=== PATIENT | female | born 1960 | race American Indian/Alaskan Native ===

== ENCOUNTER 2017-03-11 02:04 | Inpatient (IN) | payer MEDICARE ==
[2017-03-11 02:44] LABS: BASO # 0.1 K/uL (0.0-0.2); BASO % 1.4 % (0.0-2.0); EOS # 0.1 K/uL (0.0-0.7); EOS % 0.7 % (0.0-4.0); LYMPH # 2.5 K/uL (1.0-4.3); LYMPH % 32.3 % (20.0-40.0); MEAN CELL VOLUME 76.3 fl (81.0-99.0); MEAN CORPUSCULAR HEMOGLOBIN 24.5 pg (27.0-31.0); MEAN CORPUSCULAR HGB CONC 32.2 g/dL (33.0-37.0); MEAN PLATELET VOLUME 8.7 fl (7.2-11.7); MONO # 0.6 K/uL (0.0-0.8); MONO % 7.5 % (0.0-10.0); NEUT # 4.5 K/uL (1.8-7.0); NEUT % 58.1 % (50.0-75.0); NRBC % 0.3 % (0.0-0.0); RBC 4.9 Mil/uL (3.80-5.20); RED CELL DISTRIBUTION WIDTH 14.9 % (11.5-14.5); WHITE BLOOD COUNT 7.7 K/uL (4.8-10.8)
[2017-03-11 02:55] LABS: BARBITURATES, UR NEGATIVE (NEGATIVE); BENZODIAZEPINES, UR NEGATIVE (NEGATIVE); OPIATES, UR NEGATIVE (NEGATIVE); PHENCYCLIDINE, UR NEGATIVE (NEGATIVE)
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
[2017-03-11] MEDS ORDERED: Dextrose 5%/0.45% NS 1,000 ML IV SCH (03:00)
[2017-03-11 03:05] LABS: ALB/GLOB RATIO 1.3 (1.0-2.1); ALBUMIN 4.4 g/dL (3.5-5.0); ALT/SGPT 28 U/L (9-52); AST/SGOT 26 U/L (14-36); BLOOD UREA NITROGEN 13 mg/dl (7-17); CALCIUM 10.2 mg/dL (8.4-10.2); GFR AFRICAN-AMERICAN > 60; GFR NON-AFRICAN AMERICAN > 60
[2017-03-11 03:26] LABS: INR 1.1 (0.9-1.2); PARTIAL THROMBOPLASTIN TIME 30.2 Seconds (25.6-37.1); PROTHROMBIN TIME 12.7 Seconds (9.8-13.1)
--- NOTE | 2017-03-11 03:29 | CT ---
EXAM: CT Head Without Intravenous Contrast CLINICAL HISTORY: 56 years old, female; Signs and symptoms; Altered mental status/memory loss; Prior surgery; Surgery date: 6+ months; Surgery type: See chart; Additional info: AMS TECHNIQUE: Axial computed tomography images of the head/brain without intravenous contrast. This CT exam was performed using one or more of the following dose reduction techniques: automated exposure control, adjustment of the mA and/or kV according to patient size, and/or use of iterative reconstruction technique. Coronal and sagittal reformatted images were created and reviewed. COMPARISON: CT - HEAD W/O CONTRAST 05/17/2016 3:35:58 AM FINDINGS: Brain: No intracranial hemorrhage. No mass. Calcifications within LEFT frontal region along previous shunt tract. No definite edema. Ventricles: RIGHT ventricular shunt, stable in position. No hydrocephalus. Bones/joints: No acute fracture. Postsurgical changes of calvarium. Soft tissues: Unremarkable. Vasculature: Aneurysm clips. Sinuses: No acute sinusitis. Mastoid air cells: No mastoid effusion. Orbits: Unremarkable as visualized. IMPRESSION: 1. No definite acute intracranial abnormality. 2. Incidental/non-acute findings are described above.
[2017-03-11] MEDS ORDERED: Multivitamin (MVI) 10 ML, Folic Acid 1 MG, Thiamine 100 MG in Dextrose 5%/0.45% NS 1,00... IV ONE (03:32)
[2017-03-11] MEDS ORDERED: Labetalol 5 mg/ml Inj 20ML IVP STA (03:33)
[2017-03-11 03:55] LABS: SQUAMOUS EPITHIAL 3 /hpf (0-5); URINE BACTERIA RARE (<OCC); URINE BILIRUBIN NEGATIVE (NEGATIVE); URINE BLOOD NEGATIVE (NEGATIVE); URINE CLARITY SLIGHTY-CLOUDY (Clear); URINE COLOR YELLOW (YELLOW); URINE GLUCOSE (UA) NEG (Normal); URINE LEUKOCYTE ESTERASE SMALL Leu/uL (Negative); URINE NITRATE NEGATIVE (NEGATIVE); URINE PROTEIN 30 mg/dL (NEGATIVE); URINE UROBILINOGEN 0.2-1.0 mg/dL (0.2-1.0)
[2017-03-11 03:55] LABS: VENOUS BLOOD GAS BASE EXCESS -1.6 mmol/L (0.0-2.0); VENOUS BLOOD GAS PCO2 24 mmHg (40-60); VENOUS BLOOD GAS PO2 37 mm/Hg (30-55); VENOUS BLOOD PH 7.52 (7.32-7.43)
[2017-03-11 04:02] LABS: ABG ALLEN TEST YES; ARTERIAL BLOOD GAS O2 SAT 94.1 % (95-98); ARTERIAL BLOOD GAS PCO2 19 mm/Hg (35-45); ARTERIAL BLOOD GAS PH 7.57 (7.35-7.45); ARTERIAL BLOOD GAS PO2 52 mm/Hg (80-100)
[2017-03-11] MEDS ORDERED: Labetalol 5 mg/ml Inj 20ML IVP PRN ×2 (04:44→04:48)
[2017-03-11] MEDS ORDERED: Potassium Chloride 20 mEq ER Tab PO ONE ×2 (04:49→12:10)
[2017-03-11 06:03] VITALS: BMI 25.0
[2017-03-11 07:25] LABS: BASO % 0.3 % (0.0-2.0); EOS % 0.3 % (0.0-4.0); HEMOGLOBIN 11.5 g/dL (12.0-16.0); LYMPH % 23.8 % (20.0-40.0); MEAN CELL VOLUME 75.7 fl (81.0-99.0); MEAN CORPUSCULAR HEMOGLOBIN 24.6 pg (27.0-31.0); MEAN CORPUSCULAR HGB CONC 32.5 g/dL (33.0-37.0); MEAN PLATELET VOLUME 8.9 fl (7.2-11.7); MONO # 0.5 K/uL (0.0-0.8); MONO % 5.8 % (0.0-10.0); NEUT # 5.9 K/uL (1.8-7.0); NEUT % 69.8 % (50.0-75.0); RBC 4.69 Mil/uL (3.80-5.20); WHITE BLOOD COUNT 8.5 K/uL (4.8-10.8)
[2017-03-11 07:45] LABS: BLOOD UREA NITROGEN 10 mg/dl (7-17); GFR AFRICAN-AMERICAN > 60; GFR NON-AFRICAN AMERICAN > 60
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
--- NOTE | 2017-03-11 08:02 | RAD ---
HISTORY: Chest pain. Portable study 03:46. COMPARISON: 05/26/2016. FINDINGS: LUNGS: Haziness at the right lung base either atelectasis or infiltrate. PLEURA: No significant pleural effusion identified, no pneumothorax apparent. CARDIOVASCULAR: No radiographic findings to suggest acute or significant cardiovascular disease. OSSEOUS STRUCTURES: No significant abnormalities. VISUALIZED UPPER ABDOMEN: Normal. OTHER FINDINGS: Stable METROLOGY SPECIALIST shunt catheter. IMPRESSION: Right lower lobe infiltrate/atelectasis. No preliminary report provided by emergency department personnel.
[2017-03-11] MEDS: Pantoprazole 40 mg EC Tab PO SCH (08:43)
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
[2017-03-11] MEDS: Azithromycin 500 MG in Sodium Chloride 0.9% 250 ML IVPB SCH (12:06)
--- NOTE | 2017-03-11 12:24 | CARD ---
APPROVED REPORT EKG Measurement Heart [id number] <Conclusion> Normal sinus rhythm Nonspecific T wave abnormality Abnormal ECG
--- NOTE | 2017-03-11 18:38 | CP.CCUPN ---
CCU Subjective - Physician Review Subjective (Free Text): Easily awakens to verbal stimuli, and appropriately responsive, no distress. Denies any focal weakness, abdominal pain, nausea. History obtained from family friend relates that 3 large bottles of EJ Vodka found in the home today and were probably ingested by patient recently. Oral Intake has been poor over the past several days. Son who lives now with the patient unable to fully supervise her 24-7. ROS: as above, other 10+ system review reveals no pertinent negs or positives. Other PMSFH: all nursing and physician notes reviewed, no other pertinent history relevant to current problems. CCU Objective - Vital Signs / Intake & Output Vital Signs (Last 4 hours): Vital Signs Temp Pulse Resp BP Pulse Ox 03/11/17 18:00 61 19 161/98 H 99 03/11/17 16:31 98.1 F 75 12 138/79 99 Intake and Output (Last 8hrs): Intake & Output 03/11/17 03/11/17 03/11/17 06:59 14:59 22:59 Intake Total 350 750 Output Total 750 Balance -400 750 Weight 146 lb Intake: IV 750 Intake, Piggyback 350 Output: Urine 750 Urine, Voided 750 - Physical Exam Head: Positive for: Atraumatic, Normocephalic Pupils: Positive for: PERRL Extroacular Muscles: Positive for: EOMI. Negative for: Gaze Palsy Conjunctiva: Positive for: Normal. Negative for: Injected, Icteric Pharnyx: Positive for: Normal Neck: Positive for: Normal Range of Motion. Negative for: Meningeal Signs, JVD , Lymphadenopathy Respiratory/Chest: Positive for: Clear to Auscultation. Negative for: Accessory Muscle Use, Wheezes Cardiovascular: Positive for: Regular Rate and Rhythm. Negative for: Murmurs, Rub Abdomen: Negative for: Tenderness, Distention, Normal Bowel Sounds, Guarding Lower Extremity: Positive for: Normal Inspection, NORMAL PULSES. Negative for: Edema, CALF TENDERNESS, Cyanosis Neurological: Positive for: GCS=15, Speech Normal, Motor Func Grossly Intact, Normal Sensory Function, Norm Deep Tendon Reflexes Skin: Positive for: Warm. Negative for: Rashes Psychiatric: Positive for: Alert, Oriented x 3, Normal Concentration - Medications Active Medications: Active Medications Generic Name Dose Route Start Last Admin Trade Name Freq PRN Reason Stop Dose Admin Amlodipine Besylate 10 mg 03/11/17 18:13 Norvasc PO 03/11/17 18:14 ONCE ONE Azithromycin 500 mg/ Sodium 250 mls @ 250 mls/hr 03/11/17 09:00 03/11/17 12: 06 Chloride IVPB 250 mls/hr DAILY JONNIE Administration Ceftriaxone Sodium 1 gm/ 100 mls @ 100 mls/hr 03/11/17 09:00 03/11/17 12:06 Sodium Chloride IVPB 100 mls/hr DAILY JONNIE Administration Potassium Chloride/Dextrose/Sod Cl 1,000 mls @ 150 mls/hr 03/11/17 18:30 Potassium Chl 20 Meq In D5-1/2ns IV 03/12/17 18:31 [id number] JONNIE Labetalol HCl 20 mg 03/11/17 04:48 Trandate IVP Q4H PRN Elevated Blood Pressure Pantoprazole Sodium 40 mg 03/11/17 09:00 03/11/17 08:43 Protonix Ec Tab PO 40 mg DAILY JONNIE Administration - Patient Studies Lab Studies: Lab Studies 03/11/17 03/11/17 03/11/17 Range/Units 17:31 11:40 07:00 WBC (4.8-10.8) K/uL RBC (3.80-5.20) Mil/uL Hgb (12.0-16.0) g/dL Hct (34.0-47.0) % MCV (81.0-99.0) fl MCH (27.0-31.0) pg MCHC (33.0-37.0) g/dL RDW (11.5-14.5) % Plt Count (130-400) K/uL MPV (7.2-11.7) fl Neut % (Auto) (50.0-75.0) % Lymph % (Auto) (20.0-40.0) % [place] % (Auto) (0.0-10.0) % Eos % (Auto) (0.0-4.0) % Baso % (Auto) (0.0-2.0) % Neut # (1.8-7.0) K/uL Lymph # (1.0-4.3) K/uL [place] # (0.0-0.8) K/uL Eos # (0.0-0.7) K/uL Baso # (0.0-0.2) K/uL pCO2 (35-45) mm/Hg pO2 (30-55) mm/Hg HCO3 (21-28) mmol/L ABG pH (7.35-7.45) ABG Total CO2 (22-28) mmol/L ABG O2 Saturation (95-98) % ABG Base Excess (-2.0-3.0) mmol/L Jose Test ABG Potassium (3.6-5.2) mmol/L VBG pH (7.32-7.43) VBG pCO2 (40-60) mmHg VBG HCO3 mmol/L VBG Total CO2 (22-28) mmol/L VBG O2 Sat (Calc) (40-65) % VBG Base Excess (0.0-2.0) mmol/L VBG Potassium (3.6-5.2) mmol/L A-a O2 Difference mm/Hg Sodium (132-148) mmol/L Chloride (98-107) mmol/L Glucose (65-105) mg/dL Lactate (0.7-2.1) mmol/L FiO2 % Crit Value Called To Crit Value Called By Crit Value Read Back Blood Gas Notified Time Potassium (3.6-5.0) MMOL/L Carbon Dioxide (22-30) mmol/L Anion Gap (10-20) BUN (7-17) mg/dl Creatinine (0.7-1.2) mg/dL Est GFR ( Amer) Est GFR (Non-Af Amer) Random Glucose (65-105) mg/dL Serum Osmolality (272-300) mosm/kg Calcium (8.4-10.2) mg/dL Phosphorus (2.5-4.5) mg/dl Magnesium (1.6-2.3) MG/DL Troponin I 0.0130 < 0.0120 (0.00-0.120) ng/mL Lipase (23-300) U/L Thyroxine (T4) 6.90 (5.5-11.0) ug/dl TSH 3rd Generation (0.46-4.68) mIU/ML Arterial Blood Potassium (3.6-5.2) mmol/L Venous Blood Potassium (3.6-5.2) mmol/L 07/03/11/17 03/11/17 Range/Units 07:00 07:00 05:04 WBC 8.5 (4.8-10.8) K/uL RBC 4.69 (3.80-5.20) Mil/uL Hgb 11.5 L (12.0-16.0) g/dL Hct 35.5 (34.0-47.0) % MCV 75.7 L (81.0-99.0) fl MCH 24.6 L (27.0-31.0) pg MCHC 32.5 L (33.0-37.0) g/dL RDW 15.0 H (11.5-14.5) % Plt Count 241 (130-400) K/uL MPV 8.9 (7.2-11.7) fl Neut % (Auto) 69.8 (50.0-75.0) % Lymph % (Auto) 23.8 (20.0-40.0) % [place] % (Auto) 5.8 (0.0-10.0) % Eos % (Auto) 0.3 (0.0-4.0) % Baso % (Auto) 0.3 (0.0-2.0) % Neut # 5.9 (1.8-7.0) K/uL Lymph # 2.0 (1.0-4.3) K/uL [place] # 0.5 (0.0-0.8) K/uL Eos # 0.0 (0.0-0.7) K/uL Baso # 0.0 (0.0-0.2) K/uL pCO2 (35-45) mm/Hg pO2 (30-55) mm/Hg HCO3 (21-28) mmol/L ABG pH (7.35-7.45) ABG Total CO2 (22-28) mmol/L ABG O2 Saturation (95-98) % ABG Base Excess (-2.0-3.0) mmol/L Jose Test ABG Potassium (3.6-5.2) mmol/L VBG pH (7.32-7.43) VBG pCO2 (40-60) mmHg VBG HCO3 mmol/L VBG Total CO2 (22-28) mmol/L VBG O2 Sat (Calc) (40-65) % VBG Base Excess (0.0-2.0) mmol/L VBG Potassium (3.6-5.2) mmol/L A-a O2 Difference mm/Hg Sodium 149 H (132-148) mmol/L Chloride 118 H (98-107) mmol/L Glucose (65-105) mg/dL Lactate (0.7-2.1) mmol/L FiO2 % Crit Value Called To Crit Value Called By Crit Value Read Back Blood Gas Notified Time Potassium 2.9 L (3.6-5.0) MMOL/L Carbon Dioxide 14 L (22-30) mmol/L Anion Gap 20 (10-20) BUN 10 (7-17) mg/dl Creatinine 0.7 (0.7-1.2) mg/dL Est GFR ( Amer) > 60 Est GFR (Non-Af Amer) > 60 Random Glucose 105 (65-105) mg/dL Serum Osmolality (272-300) mosm/kg Calcium 10.0 (8.4-10.2) mg/dL Phosphorus 3.1 (2.5-4.5) mg/dl Magnesium (1.6-2.3) MG/DL Troponin I < 0.0120 (0.00-0.120) ng/mL Lipase (23-300) U/L Thyroxine (T4) (5.5-11.0) ug/dl TSH 3rd Generation 4.51 (0.46-4.68) mIU/ML Arterial Blood Potassium (3.6-5.2) mmol/L Venous Blood Potassium (3.6-5.2) mmol/L 03/11/17 03/11/17 03/11/17 Range/Units 04:30 04:24 04:02 WBC (4.8-10.8) K/uL RBC (3.80-5.20) Mil/uL Hgb (12.0-16.0) g/dL Hct (34.0-47.0) % MCV (81.0-99.0) fl MCH (27.0-31.0) pg MCHC (33.0-37.0) g/dL RDW (11.5-14.5) % Plt Count (130-400) K/uL MPV (7.2-11.7) fl Neut % (Auto) (50.0-75.0) % Lymph % (Auto) (20.0-40.0) % [place] % (Auto) (0.0-10.0) % Eos % (Auto) (0.0-4.0) % Baso % (Auto) (0.0-2.0) % Neut # (1.8-7.0) K/uL Lymph # (1.0-4.3) K/uL [place] # (0.0-0.8) K/uL Eos # (0.0-0.7) K/uL Baso # (0.0-0.2) K/uL pCO2 (35-45) mm/Hg pO2 (30-55) mm/Hg HCO3 (21-28) mmol/L ABG pH (7.35-7.45) ABG Total CO2 (22-28) mmol/L ABG O2 Saturation (95-98) % ABG Base Excess (-2.0-3.0) mmol/L Jose Test ABG Potassium (3.6-5.2) mmol/L VBG pH (7.32-7.43) VBG pCO2 (40-60) mmHg VBG HCO3 mmol/L VBG Total CO2 (22-28) mmol/L VBG O2 Sat (Calc) (40-65) % VBG Base Excess (0.0-2.0) mmol/L VBG Potassium (3.6-5.2) mmol/L A-a O2 Difference mm/Hg Sodium (132-148) mmol/L Chloride (98-107) mmol/L Glucose (65-105) mg/dL Lactate (0.7-2.1) mmol/L FiO2 % Crit Value Called To Crit Value Called By Crit Value Read Back Blood Gas Notified Time Potassium (3.6-5.0) MMOL/L Carbon Dioxide (22-30) mmol/L Anion Gap (10-20) BUN (7-17) mg/dl Creatinine (0.7-1.2) mg/dL Est GFR ( Amer) Est GFR (Non-Af Amer) Random Glucose (65-105) mg/dL Serum Osmolality 304 H (272-300) mosm/kg Calcium (8.4-10.2) mg/dL Phosphorus (2.5-4.5) mg/dl Magnesium 1.5 L (1.6-2.3) MG/DL Troponin I (0.00-0.120) ng/mL Lipase 91 (23-300) U/L Thyroxine (T4) (5.5-11.0) ug/dl TSH 3rd Generation (0.46-4.68) mIU/ML Arterial Blood Potassium (3.6-5.2) mmol/L Venous Blood Potassium (3.6-5.2) mmol/L 03/11/17 03/11/17 Range/Units 03:56 03:52 WBC (4.8-10.8) K/uL RBC (3.80-5.20) Mil/uL Hgb (12.0-16.0) g/dL Hct (34.0-47.0) % MCV (81.0-99.0) fl MCH (27.0-31.0) pg MCHC (33.0-37.0) g/dL RDW (11.5-14.5) % Plt Count (130-400) K/uL MPV (7.2-11.7) fl Neut % (Auto) (50.0-75.0) % Lymph % (Auto) (20.0-40.0) % [place] % (Auto) (0.0-10.0) % Eos % (Auto) (0.0-4.0) % Baso % (Auto) (0.0-2.0) % Neut # (1.8-7.0) K/uL Lymph # (1.0-4.3) K/uL [place] # (0.0-0.8) K/uL Eos # (0.0-0.7) K/uL Baso # (0.0-0.2) K/uL pCO2 19 L* (35-45) mm/Hg pO2 52 L 37 (30-55) mm/Hg HCO3 23.0 (21-28) mmol/L ABG pH 7.57 H (7.35-7.45) ABG Total CO2 18.0 L (22-28) mmol/L ABG O2 Saturation 94.1 L (95-98) % ABG Base Excess -2.3 L (-2.0-3.0) mmol/L Jose Test Yes ABG Potassium 3.1 L (3.6-5.2) mmol/L VBG pH 7.52 H (7.32-7.43) VBG pCO2 24 L (40-60) mmHg VBG HCO3 23.2 mmol/L VBG Total CO2 20.3 L (22-28) mmol/L VBG O2 Sat (Calc) 76.0 H (40-65) % VBG Base Excess -1.6 L (0.0-2.0) mmol/L VBG Potassium 3.4 L (3.6-5.2) mmol/L A-a O2 Difference 74.0 mm/Hg Sodium 145.0 144.0 (132-148) mmol/L Chloride 113.0 H 113.0 H (98-107) mmol/L Glucose 92 87 (65-105) mg/dL Lactate 2.8 H 3.1 H (0.7-2.1) mmol/L FiO2 21.0 21.0 % Crit Value Called To Jb coker md Crit Value Called By 6075 Crit Value Read Back Y Blood Gas Notified Time 402 Potassium (3.6-5.0) MMOL/L Carbon Dioxide (22-30) mmol/L Anion Gap (10-20) BUN (7-17) mg/dl Creatinine (0.7-1.2) mg/dL Est GFR ( Amer) Est GFR (Non-Af Amer) Random Glucose (65-105) mg/dL Serum Osmolality (272-300) mosm/kg Calcium (8.4-10.2) mg/dL Phosphorus (2.5-4.5) mg/dl Magnesium (1.6-2.3) MG/DL Troponin I (0.00-0.120) ng/mL Lipase (23-300) U/L Thyroxine (T4) (5.5-11.0) ug/dl TSH 3rd Generation (0.46-4.68) mIU/ML Arterial Blood Potassium 3.1 L (3.6-5.2) mmol/L Venous Blood Potassium 3.4 L (3.6-5.2) mmol/L Laboratory Results - last 24 hr 03/11/17 03/11/17 03/11/17 03:52 03:56 04:02 WBC RBC Hgb Hct MCV MCH MCHC RDW Plt Count MPV Neut % (Auto) Lymph % (Auto) [place] % (Auto) Eos % (Auto) Baso % (Auto) Neut # Lymph # [place] # Eos # Baso # pCO2 19 L* pO2 37 52 L HCO3 23.0 ABG pH 7.57 H ABG Total CO2 18.0 L ABG O2 Saturation 94.1 L ABG Base Excess -2.3 L Jose Test Yes ABG Potassium 3.1 L VBG pH 7.52 H VBG pCO2 24 L VBG HCO3 23.2 VBG Total CO2 20.3 L VBG O2 Sat (Calc) 76.0 H VBG Base Excess -1.6 L VBG Potassium 3.4 L A-a O2 Difference 74.0 Sodium 144.0 145.0 Chloride 113.0 H 113.0 H Glucose 87 92 Lactate 3.1 H 2.8 H FiO2 21.0 21.0 Crit Value Called To Jb coker md Crit Value Called By 6075 Crit Value Read Back Y Blood Gas Notified Time 402 Potassium Carbon Dioxide Anion Gap BUN Creatinine Est GFR ( Amer) Est GFR (Non-Af Amer) Random Glucose Serum Osmolality Calcium Phosphorus Magnesium 1.5 L Troponin I Lipase Thyroxine (T4) TSH 3rd Generation Arterial Blood Potassium 3.1 L Venous Blood Potassium 3.4 L 03/11/17 03/11/17 03/11/17 04:24 04:30 05:04 WBC RBC Hgb Hct MCV MCH MCHC RDW Plt Count MPV Neut % (Auto) Lymph % (Auto) [place] % (Auto) Eos % (Auto) Baso % (Auto) Neut # Lymph # [place] # Eos # Baso # pCO2 pO2 HCO3 ABG pH ABG Total CO2 ABG O2 Saturation ABG Base Excess Jose Test ABG Potassium VBG pH VBG pCO2 VBG HCO3 VBG Total CO2 VBG O2 Sat (Calc) VBG Base Excess VBG Potassium A-a O2 Difference Sodium Chloride Glucose Lactate FiO2 Crit Value Called To Crit Value Called By Crit Value Read Back Blood Gas Notified Time Potassium Carbon Dioxide Anion Gap BUN Creatinine Est GFR ( Amer) Est GFR (Non-Af Amer) Random Glucose Serum Osmolality 304 H Calcium Phosphorus Magnesium Troponin I < 0.0120 Lipase 91 Thyroxine (T4) TSH 3rd Generation Arterial Blood Potassium Venous Blood Potassium 0703/11/17 03/11/17 07:00 07:00 07:00 WBC 8.5 RBC 4.69 Hgb 11.5 L Hct 35.5 MCV 75.7 L MCH 24.6 L MCHC 32.5 L RDW 15.0 H Plt Count 241 MPV 8.9 Neut % (Auto) 69.8 Lymph % (Auto) 23.8 [place] % (Auto) 5.8 Eos % (Auto) 0.3 Baso % (Auto) 0.3 Neut # 5.9 Lymph # 2.0 [place] # 0.5 Eos # 0.0 Baso # 0.0 pCO2 pO2 HCO3 ABG pH ABG Total CO2 ABG O2 Saturation ABG Base Excess Jose Test ABG Potassium VBG pH VBG pCO2 VBG HCO3 VBG Total CO2 VBG O2 Sat (Calc) VBG Base Excess VBG Potassium A-a O2 Difference Sodium 149 H Chloride 118 H Glucose Lactate FiO2 Crit Value Called To Crit Value Called By Crit Value Read Back Blood Gas Notified Time Potassium 2.9 L Carbon Dioxide 14 L Anion Gap 20 BUN 10 Creatinine 0.7 Est GFR ( Amer) > 60 Est GFR (Non-Af Amer) > 60 Random Glucose 105 Serum Osmolality Calcium 10.0 Phosphorus 3.1 Magnesium Troponin I Lipase Thyroxine (T4) 6.90 TSH 3rd Generation 4.51 Arterial Blood Potassium Venous Blood Potassium 03/11/17 03/11/17 11:40 17:31 WBC RBC Hgb Hct MCV MCH MCHC RDW Plt Count MPV Neut % (Auto) Lymph % (Auto) [place] % (Auto) Eos % (Auto) Baso % (Auto) Neut # Lymph # [place] # Eos # Baso # pCO2 pO2 HCO3 ABG pH ABG Total CO2 ABG O2 Saturation ABG Base Excess Jose Test ABG Potassium VBG pH VBG pCO2 VBG HCO3 VBG Total CO2 VBG O2 Sat (Calc) VBG Base Excess VBG Potassium A-a O2 Difference Sodium Chloride Glucose Lactate FiO2 Crit Value Called To Crit Value Called By Crit Value Read Back Blood Gas Notified Time Potassium Carbon Dioxide Anion Gap BUN Creatinine Est GFR ( Amer) Est GFR (Non-Af Amer) Random Glucose Serum Osmolality Calcium Phosphorus Magnesium Troponin I < 0.0120 0.0130 Lipase Thyroxine (T4) TSH 3rd Generation Arterial Blood Potassium Venous Blood Potassium Fingerstick Blood Sugar Results: 95 Critical Care Progress Note - Prophylaxis GI Prophylaxis GI: PPI - Prophylaxis DVT Prophylaxis DVT: SCDs - Nutrition Nutrition: Nutrition Category Date Time Status Heart Healthy Diet [DIET] Diets 03/11/17 Lunch Active Assessment/Plan - Assessment and Plan (Free Text) Assessment: MAJOR PROBLEMS / PLAN: 1. Alcoholic ketoacidosis with concomitant metabolic alkalosis from vomiting. a. There is no osmolar gap evident to otherwise explain the current level of acidosis, leading to suspicion of other toxic ingestion such as ethylene glycol , methanol, and isopropyl alcohol as in a recent past admission. b. Would continue IVFs with D5W and half saline. c. Check mag/Phos levels in AM. K repleted this AM, but may need more. d. Thiamine and folic acid supplements 2. HTN a. Resume Amlodipine. b. Watch BP trends, treat if sustained elevations above 110 and lower 20% for now. 3. RLL/ RML Pneumonia; r/o Aspiration event a. Empiric abx coverage noted. Would switch to Zosyn for additional anaerobic coverage, and keep Azithro.
[2017-03-11] MEDS: Potassium Ch 20mEq in D5-1/2NS 1,000 ML IV SCH (19:05)
[2017-03-12] MEDS: Potassium Ch 20mEq in D5-1/2NS 1,000 ML IV SCH ×2 (01:03→08:00)
[2017-03-12 05:36] LABS: HEMOGLOBIN 11.1 g/dL (12.0-16.0); MEAN CELL VOLUME 77.9 fl (81.0-99.0); MEAN CORPUSCULAR HEMOGLOBIN 24.3 pg (27.0-31.0); MEAN CORPUSCULAR HGB CONC 31.2 g/dL (33.0-37.0); RBC 4.55 Mil/uL (3.80-5.20); RED CELL DISTRIBUTION WIDTH 15.2 % (11.5-14.5); WHITE BLOOD COUNT 8.2 K/uL (4.8-10.8)
[2017-03-12 05:48] LABS: BLOOD UREA NITROGEN 7 mg/dl (7-17); CALCIUM 8.9 mg/dL (8.4-10.2); GFR AFRICAN-AMERICAN > 60; GFR NON-AFRICAN AMERICAN > 60
--- NOTE | 2017-03-12 07:17 | CP.CCUPN ---
CCU Objective - Vital Signs / Intake & Output Vital Signs (Last 4 hours): Vital Signs Temp Pulse Resp BP Pulse Ox 03/12/17 06:00 72 18 134/72 100 03/12/17 04:00 98.1 F 71 18 134/88 98 Intake and Output (Last 8hrs): Intake & Output 03/11/17 03/12/17 03/12/17 22:59 06:59 14:59 Intake Total 1200 1350 Output Total 300 300 Balance 900 1050 Intake: IV 1200 1350 Oral 0 0 Output: Urine 300 300 Urine, Voided 300 300 Other: # Voids Urine, Voided 1 1 # Bowel Movements 1 - Physical Exam Head: Positive for: Atraumatic, Normocephalic Pupils: Positive for: PERRL Extroacular Muscles: Positive for: EOMI. Negative for: Gaze Palsy Conjunctiva: Positive for: Normal. Negative for: Injected, Icteric Pharnyx: Positive for: Normal Neck: Positive for: Normal Range of Motion. Negative for: Meningeal Signs, JVD , Lymphadenopathy Respiratory/Chest: Positive for: Clear to Auscultation. Negative for: Accessory Muscle Use, Wheezes Cardiovascular: Positive for: Regular Rate and Rhythm. Negative for: Murmurs, Rub Abdomen: Negative for: Tenderness, Distention, Normal Bowel Sounds, Guarding Lower Extremity: Positive for: Normal Inspection, NORMAL PULSES. Negative for: Edema, CALF TENDERNESS, Cyanosis Neurological: Positive for: GCS=15, Speech Normal, Motor Func Grossly Intact, Normal Sensory Function, Norm Deep Tendon Reflexes Skin: Positive for: Warm. Negative for: Rashes Psychiatric: Positive for: Alert, Oriented x 3, Normal Concentration - Medications Active Medications: Active Medications Generic Name Dose Route Start Last Admin Trade Name Freq PRN Reason Stop Dose Admin Amlodipine Besylate 10 mg 03/12/17 09:00 Norvasc PO DAILY JONNIE Folic Acid 1 mg 03/12/17 09:00 Folic Acid PO DAILY JONNIE Azithromycin 500 mg/ Sodium 250 mls @ 250 mls/hr 03/11/17 09:00 03/11/17 12: 06 Chloride IVPB 250 mls/hr DAILY JONNIE Administration Ceftriaxone Sodium 1 gm/ 100 mls @ 100 mls/hr 03/11/17 09:00 03/11/17 12:06 Sodium Chloride IVPB 100 mls/hr DAILY JONNIE Administration Potassium Chloride/Dextrose/Sod Cl 1,000 mls @ 150 mls/hr 03/11/17 18:30 01:03 Potassium Chl 20 Meq In D5-1/2ns IV 03/12/17 18:31 150 mls/hr .[id number] JONNIE Administration Labetalol HCl 20 mg 03/11/17 04:48 Trandate IVP Q4H PRN Elevated Blood Pressure Pantoprazole Sodium 40 mg 03/11/17 09:00 03/11/17 08:43 Protonix Ec Tab PO 40 mg DAILY JONNIE Administration Thiamine HCl 100 mg 03/12/17 09:00 Vitamin B1 Tab PO DAILY JONNIE - Patient Studies Lab Studies: Lab Studies 03/12/17 03/12/17 03/11/17 Range/Units 04:20 04:20 17:31 WBC 8.2 (4.8-10.8) K/uL RBC 4.55 (3.80-5.20) Mil/uL Hgb 11.1 L (12.0-16.0) g/dL Hct 35.5 (34.0-47.0) % MCV 77.9 L D (81.0-99.0) fl MCH 24.3 L (27.0-31.0) pg MCHC 31.2 L (33.0-37.0) g/dL RDW 15.2 H (11.5-14.5) % Plt Count 199 (130-400) K/uL MPV (7.2-11.7) fl Neut % (Auto) (50.0-75.0) % Lymph % (Auto) (20.0-40.0) % Pope % (Auto) (0.0-10.0) % Eos % (Auto) (0.0-4.0) % Baso % (Auto) (0.0-2.0) % Neut # (1.8-7.0) K/uL Lymph # (1.0-4.3) K/uL Pope # (0.0-0.8) K/uL Eos # (0.0-0.7) K/uL Baso # (0.0-0.2) K/uL Sodium 145 (132-148) mmol/l Potassium 3.5 L (3.6-5.0) MMOL/L Chloride 119 H (98-107) mmol/L Carbon Dioxide 16 L (22-30) mmol/L Anion Gap 14 (10-20) BUN 7 (7-17) mg/dl Creatinine 0.7 (0.7-1.2) mg/dL Est GFR ( Amer) > 60 Est GFR (Non-Af Amer) > 60 Random Glucose 118 H (65-105) mg/dL Calcium 8.9 (8.4-10.2) mg/dL Phosphorus (2.5-4.5) mg/dl Troponin I 0.0130 (0.00-0.120) ng/mL Thyroxine (T4) (5.5-11.0) ug/dl TSH 3rd Generation (0.46-4.68) mIU/ML 03/11/17 03/11/17 03/11/17 Range/Units 11:40 07:00 07:00 WBC (4.8-10.8) K/uL RBC (3.80-5.20) Mil/uL Hgb (12.0-16.0) g/dL Hct (34.0-47.0) % MCV (81.0-99.0) fl MCH (27.0-31.0) pg MCHC (33.0-37.0) g/dL RDW (11.5-14.5) % Plt Count (130-400) K/uL MPV (7.2-11.7) fl Neut % (Auto) (50.0-75.0) % Lymph % (Auto) (20.0-40.0) % Pope % (Auto) (0.0-10.0) % Eos % (Auto) (0.0-4.0) % Baso % (Auto) (0.0-2.0) % Neut # (1.8-7.0) K/uL Lymph # (1.0-4.3) K/uL Pope # (0.0-0.8) K/uL Eos # (0.0-0.7) K/uL Baso # (0.0-0.2) K/uL Sodium 149 H (132-148) mmol/l Potassium 2.9 L (3.6-5.0) MMOL/L Chloride 118 H (98-107) mmol/L Carbon Dioxide 14 L (22-30) mmol/L Anion Gap 20 (10-20) BUN 10 (7-17) mg/dl Creatinine 0.7 (0.7-1.2) mg/dL Est GFR ( Amer) > 60 Est GFR (Non-Af Amer) > 60 Random Glucose 105 (65-105) mg/dL Calcium 10.0 (8.4-10.2) mg/dL Phosphorus 3.1 (2.5-4.5) mg/dl Troponin I < 0.0120 (0.00-0.120) ng/mL Thyroxine (T4) 6.90 (5.5-11.0) ug/dl TSH 3rd Generation 4.51 (0.46-4.68) mIU/ML 03/11/17 Range/Units 07:00 WBC 8.5 (4.8-10.8) K/uL RBC 4.69 (3.80-5.20) Mil/uL Hgb 11.5 L (12.0-16.0) g/dL Hct 35.5 (34.0-47.0) % MCV 75.7 L (81.0-99.0) fl MCH 24.6 L (27.0-31.0) pg MCHC 32.5 L (33.0-37.0) g/dL RDW 15.0 H (11.5-14.5) % Plt Count 241 (130-400) K/uL MPV 8.9 (7.2-11.7) fl Neut % (Auto) 69.8 (50.0-75.0) % Lymph % (Auto) 23.8 (20.0-40.0) % Pope % (Auto) 5.8 (0.0-10.0) % Eos % (Auto) 0.3 (0.0-4.0) % Baso % (Auto) 0.3 (0.0-2.0) % Neut # 5.9 (1.8-7.0) K/uL Lymph # 2.0 (1.0-4.3) K/uL Pope # 0.5 (0.0-0.8) K/uL Eos # 0.0 (0.0-0.7) K/uL Baso # 0.0 (0.0-0.2) K/uL Sodium (132-148) mmol/l Potassium (3.6-5.0) MMOL/L Chloride (98-107) mmol/L Carbon Dioxide (22-30) mmol/L Anion Gap (10-20) BUN (7-17) mg/dl Creatinine (0.7-1.2) mg/dL Est GFR ( Amer) Est GFR (Non-Af Amer) Random Glucose (65-105) mg/dL Calcium (8.4-10.2) mg/dL Phosphorus (2.5-4.5) mg/dl Troponin I (0.00-0.120) ng/mL Thyroxine (T4) (5.5-11.0) ug/dl TSH 3rd Generation (0.46-4.68) mIU/ML Laboratory Results - last 24 hr 03/11/17 03/11/17 03/11/17 07:00 07:00 07:00 WBC 8.5 RBC 4.69 Hgb 11.5 L Hct 35.5 MCV 75.7 L MCH 24.6 L MCHC 32.5 L RDW 15.0 H Plt Count 241 MPV 8.9 Neut % (Auto) 69.8 Lymph % (Auto) 23.8 Pope % (Auto) 5.8 Eos % (Auto) 0.3 Baso % (Auto) 0.3 Neut # 5.9 Lymph # 2.0 Pope # 0.5 Eos # 0.0 Baso # 0.0 Sodium 149 H Potassium 2.9 L Chloride 118 H Carbon Dioxide 14 L Anion Gap 20 BUN 10 Creatinine 0.7 Est GFR ( Amer) > 60 Est GFR (Non-Af Amer) > 60 Random Glucose 105 Calcium 10.0 Phosphorus 3.1 Troponin I Thyroxine (T4) 6.90 TSH 3rd Generation 4.51 03/11/17 03/11/17 03/12/17 11:40 17:31 04:20 WBC 8.2 RBC 4.55 Hgb 11.1 L Hct 35.5 MCV 77.9 L D MCH 24.3 L MCHC 31.2 L RDW 15.2 H Plt Count 199 MPV Neut % (Auto) Lymph % (Auto) Pope % (Auto) Eos % (Auto) Baso % (Auto) Neut # Lymph # Pope # Eos # Baso # Sodium Potassium Chloride Carbon Dioxide Anion Gap BUN Creatinine Est GFR ( Amer) Est GFR (Non-Af Amer) Random Glucose Calcium Phosphorus Troponin I < 0.0120 0.0130 Thyroxine (T4) TSH 3rd Generation 03/12/17 04:20 WBC RBC Hgb Hct MCV MCH MCHC RDW Plt Count MPV Neut % (Auto) Lymph % (Auto) Pope % (Auto) Eos % (Auto) Baso % (Auto) Neut # Lymph # Pope # Eos # Baso # Sodium 145 Potassium 3.5 L Chloride 119 H Carbon Dioxide 16 L Anion Gap 14 BUN 7 Creatinine 0.7 Est GFR ( Amer) > 60 Est GFR (Non-Af Amer) > 60 Random Glucose 118 H Calcium 8.9 Phosphorus Troponin I Thyroxine (T4) TSH 3rd Generation Fingerstick Blood Sugar Results: 95 Critical Care Progress Note - Nutrition Nutrition: Nutrition Category Date Time Status Heart Healthy Diet [DIET] Diets 03/11/17 Lunch Active
[2017-03-12 08:46] VITALS: TEMP 98
[2017-03-12] MEDS: Pantoprazole 40 mg EC Tab PO SCH (08:57)
[2017-03-12] MEDS: Azithromycin 500 MG in Sodium Chloride 0.9% 250 ML IVPB SCH (08:58)
[2017-03-12 11:51] VITALS: BP 128/88; PULSE 92; RESP 19; O2SAT 100
[2017-03-14 14:28] LABS: BETA-HYDROXYBUTYRIC ACID 12 mcg/mL
--- NOTE | 2017-03-16 08:16 | PQF PNEUMO ---
Dr. Monsivais History and Physical documented RLL infiltrate. Progress note dated documented pneumonia. After study please clarify principal diagnosis/ diagnoses for this case. This form is a permanent part of the medical record Clarification of your documentation is requested to better reflect the severity of illness and intensity of treatment of your patient. Indicators present [x] Documented diagnosis of pneumonia [x] X-ray findings: [] Positive Sputum cultures [] Cough w/ fever [] Abnormal lungs sounds [] Poor gag reflex [] Speech consults/swallow evaluation [] Vent dependence [] Other: [] Location in the medical record that reflects the above clinical findings: [] Treatment Provided: [] PHYSICIAN'S RESPONSE Based on your medical judgment of the clinical indicators outlined above, are you treating this patient for a known or suspected: [] Aspiration pneumonia [] Community acquired pneumonia [] Ventilator associated pneumonia [] Viral pneumonia [] Bacterial pneumonia Please specify organism: [] [] Other, please indicate [] If Unable to Determine, please check the box, sign and date. Present On Admission (POA) Indicator: [] Present at the time of admission [] Not present at the time of admission [] Clinically Undetermined In responding to this query, please exercise your independent professional judgment. The fact that a question is asked does not imply that any particular answer is desired or expected. Thank you for your clarification on this documentation. If you have any questions please call:[ ] * Thank you, [ ]Judy Forbes twister in [place]
== END 2017-03-12 11:47 | disposition left against medical advice (07) | DRG 194 ==
LOC: H.ER 02:04 → H.ERHOLD 03:33 → H.ICU/CCU 05:30
PROVIDERS: ADMIT Internal Medicine; ATTEND Internal Medicine
DX: J18.9 Pneumonia, unspecified organism (principal); E87.3 Alkalosis; E87.2 Acidosis; R41.82 Altered mental status, unspecified; I10 Essential (primary) hypertension; Z98.2 Presence of cerebrospinal fluid drainage device; Z85.3 Personal history of malignant neoplasm of breast; F17.200 Nicotine dependence, unspecified, uncomplicated; Z88.5 Allergy status to narcotic agent; F41.9 Anxiety disorder, unspecified; F32.9 Major depressive disorder, single episode, unspecified; E78.00 Pure hypercholesterolemia, unspecified; F10.10 Alcohol abuse, uncomplicated; Y90.0 Blood alcohol level of less than 20 mg/100 ml; E87.6 Hypokalemia

== ENCOUNTER 2017-12-12 10:24 | Inpatient (IN) | payer MEDICARE, OTHER ==
[2017-12-12 10:24] VITALS: BMI 25.0
[2017-12-12] MEDS ORDERED: Sodium Chloride 0.9% 1,000 ML IV STA (10:43)
[2017-12-12 10:57] LABS: BASO # 0.1 K/uL (0.0-0.2); BASO % 0.5 % (0.0-2.0); EOS # 0.1 K/uL (0.0-0.7); EOS % 0.5 % (0.0-4.0); HEMOGLOBIN 13.5 g/dL (12.0-16.0); LYMPH # 5.2 K/uL (1.0-4.3); LYMPH % 30.8 % (20.0-40.0); MEAN CELL VOLUME 79.9 fl (81.0-99.0); MEAN CORPUSCULAR HEMOGLOBIN 25.7 pg (27.0-31.0); MEAN CORPUSCULAR HGB CONC 32.1 g/dL (33.0-37.0); MEAN PLATELET VOLUME 9.2 fl (7.2-11.7); MONO # 0.9 K/uL (0.0-0.8); MONO % 5.4 % (0.0-10.0); NEUT # 10.5 K/uL (1.8-7.0); NEUT % 62.8 % (50.0-75.0); NRBC % 0.1 % (0.0-0.0); RBC 5.27 Mil/uL (3.80-5.20); RED CELL DISTRIBUTION WIDTH 15.9 % (11.5-14.5)
[2017-12-12 10:58] LABS: WHITE BLOOD COUNT 16.7 K/uL (4.8-10.8)
[2017-12-12 11:07] LABS: ALB/GLOB RATIO 1.2 (1.0-2.1); ALBUMIN 4.3 g/dL (3.5-5.0); ALT/SGPT 32 U/L (9-52); AST/SGOT 51 U/L (14-36); BLOOD UREA NITROGEN 10 mg/dl (7-17); CALCIUM 9.6 mg/dL (8.4-10.2); GFR AFRICAN-AMERICAN > 60; GFR NON-AFRICAN AMERICAN > 60
[2017-12-12 11:20] LABS: ABG ALLEN TEST YES; ARTERIAL BLOOD GAS O2 SAT 98.9 % (95-98); ARTERIAL BLOOD GAS PCO2 46 mm/Hg (35-45); ARTERIAL BLOOD GAS PH 7.34 (7.35-7.45); ARTERIAL BLOOD GAS PO2 155 mm/Hg (80-100); ARTERIAL BLOOD GAS TCO2 26.2 mmol/L (22-28)
[2017-12-12] MEDS ORDERED: Labetalol 5mg/ml (4ml) IVP STA (11:41)
[2017-12-12 11:56] LABS: PHENCYCLIDINE, UR NEGATIVE (NEGATIVE)
[2017-12-12 11:59] LABS: BARBITURATES, UR NEGATIVE (NEGATIVE); BENZODIAZEPINES, UR NEGATIVE (NEGATIVE); OPIATES, UR NEGATIVE (NEGATIVE)
--- NOTE | 2017-12-12 12:41 | CT ---
PROCEDURE: CT HEAD WITHOUT CONTRAST. HISTORY: new seizure, h/o chronic alcohol use COMPARISON: CT head dated 09/28/2017. TECHNIQUE: Axial computed tomography images were obtained through the head/brain without intravenous contrast. Radiation dose: Total exam DLP = 838.4 mGy-cm. This CT exam was performed using one or more of the following dose reduction techniques: Automated exposure control, adjustment of the mA and/or kV according to patient size, and/or use of iterative reconstruction technique. FINDINGS: HEMORRHAGE: No intracranial hemorrhage. 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 Encephalomalacia linear/logical area of encephalomalacia extending through a left frontal lobe related to previously removed ventriculostomy catheter. No atrophy or chronic microvascular ischemic changes. Left anterior internal capsule lacunar infarction redemonstrated. VENTRICLES: Partially imaged are the frontal ventriculoperitoneal shunt catheter redemonstrated with tip near the foramen of Monro. No hydrocephalus. CALVARIUM: Left frontal ton hole. PARANASAL SINUSES: Minimal mastoid sinus secretions and left ethmoid air cell opacification. No significant inflammatory changes. MASTOID AIR CELLS: Unremarkable as visualized. No inflammatory changes. OTHER FINDINGS: Right ventriculoperitoneal shunt reservoir in the right frontoparietal soft tissues. IMPRESSION: No acute intracranial pathology. Stable appearance of right parasellar coil mass and partially imaged right ventriculoperitoneal shunt catheter.
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
[2017-12-12] MEDS ORDERED: Labetalol 5 mg/ml Inj 20ML IVP STA ×2 (13:40→18:12)
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
[2017-12-12] MEDS ORDERED: Iodixanol 320 MG/ML 100 ML BOTTLE IV ONE (13:46)
[2017-12-12] MEDS ORDERED: Valproate 1,000 MG in Sodium Chloride 0.9% 100 ML IVPB ONE (14:00)
[2017-12-12] MEDS ORDERED: Labetalol 5 mg/ml Inj 20ML IVP ONE (14:00)
[2017-12-12] MEDS ORDERED: Potassium Chloride 20 mEq 50 ML IVPB ONE (15:44)
[2017-12-12] MEDS ORDERED: Potassium Chloride 20 mEq 100 ML ONE (15:51)
--- NOTE | 2017-12-12 16:15 | ED PDOC ---
- Laboratory Results Result Diagrams: 12/12/17 10:30 12/12/17 10:30 - ECG O2 Sat by Pulse Oximetry: 100 - Progress ED Course And Treament: 330p Pt hospitalized for seizure and possible new weakness. Initial CT head w/o contrast negative and was evaluated by Neurology who advised CTA. Also with possible alcohol withdrawal. Asked to come to bedside for persistent agitation despite dose of Ativan. On exam pt agitated, trying to get out of bed pull out lines, speaking nonsensically and unable to be redirected. BP elevated. Daughter reports that pt is a heavy daily drinker and it is unknown when last drink was. Findings c/w DTs vs expanding aneurysm/increased ICP. Additional doses of Ativan given until calm. DW Dr Jones Pattern Room Attendant. Will come to see patient following CTA. 5p Multiple doses of ativan required to relieve agitations. Ordered Ativan infusion. EXAM: CT Angiography Head With Intravenous Contrast EXAM DATE/TIME: Examination ordered 12/12/2017 1:38 PM. Image number total count reviewed 1420 CLINICAL HISTORY: The patient is 57 years old and is female; Screening exam; Lt side weakness; Additional info: Left sided weakness/seizures Facility exam id and description: [id number] cta head /neck code stroke TECHNIQUE: Axial computed tomographic angiography images of the head with intravenous contrast using CT angiography protocol. All CT scans at this facility use one or more dose reduction techniques, viz.: automated exposure control; ma/kV adjustment per patient size (including targeted exams where dose is matched to indication; i.e. head); or iterative reconstruction technique. MIP reconstructed images were created and reviewed. CONTRAST: 60 mL of vsipaque administered intravenously. COMPARISON: CT - HEAD W/O CONTRAST 2016-05-17 03:35 FINDINGS: RIGHT INTERNAL CAROTID ARTERY: Atherosclerosis cavernous internal carotid arteries. Intracranial segment is patent with no significant stenosis. No aneurysm. RIGHT ANTERIOR CEREBRAL ARTERY: Unremarkable. No occlusion or significant stenosis. No aneurysm. RIGHT MIDDLE CEREBRAL ARTERY: Unremarkable. No occlusion or significant stenosis. No aneurysm. RIGHT POSTERIOR CEREBRAL ARTERY: Unremarkable. No occlusion or significant stenosis. No aneurysm. RIGHT VERTEBRAL ARTERY: Unremarkable as visualized. LEFT INTERNAL CAROTID ARTERY: See above. LEFT ANTERIOR CEREBRAL ARTERY: Unremarkable. No occlusion or significant stenosis. No aneurysm. LEFT MIDDLE CEREBRAL ARTERY: Unremarkable. No occlusion or significant stenosis. No aneurysm. LEFT POSTERIOR CEREBRAL ARTERY: Unremarkable. No occlusion or significant stenosis. No aneurysm. LEFT VERTEBRAL ARTERY: Unremarkable as visualized. BASILAR ARTERY: Unremarkable. No occlusion or significant stenosis. No aneurysm. SINUSES: Mild ethmoid and maxillary sinus mucosal thickening. SELLA: Aneurysm coils right suprasellar region. TUBES, LINES AND DEVICES: Right parietal ventricular catheter with tip right lateral ventricle. IMPRESSION: 1. Atherosclerosis cavernous internal carotid arteries. 2. Aneurysm coils right suprasellar region. 3. Right parietal ventricular catheter with tip right lateral ventricle. 4. Mild ethmoid and maxillary sinus mucosal thickening. Thank you for allowing us to participate in the care of your patient. Dictated and Authenticated by: Juan Daniel Blackman MD 12/12/2017 6:32 PM Eastern Time ([place] & [place]) - Critical Care Total Time (In Min): 45 Documented Critical Care: Time excludes all time spent performint seperately billable procedures Disposition - Clinical Impression Clinical Impression: Hypertension, Delirium tremens, Seizure disorder - POA Present On Arrival: None - Disposition Disposition: Admitted as In-Patient Disposition Time: 15:30 Condition: CRITICAL
[2017-12-12] MEDS ORDERED: Lorazepam 100 MG in Sodium Chloride 0.9% 50 ML IVPB SCH (17:30)
--- NOTE | 2017-12-12 18:52 | CP.CCUPN ---
CCU Subjective - Physician Review Events Since Last Encounter (Free Text): 12/12/17 18:48 57 female with history of seizer disorder, HTN, ETOH abuse, cerebral aneurism s/ p clipping in the past was brought to ER for seizer and alcohol withdrawal, patient was treated in ER with ativan, seen by neurology, had CT head & CTA head no acute findings. Patient awake, lethargic, events reviewed CCU Objective - Vital Signs / Intake & Output Vital Signs (Last 4 hours): Vital Signs Pulse Resp BP Pulse Ox 12/12/17 18:46 100 12/12/17 17:51 96 H 24 163/108 H 100 12/12/17 17:22 92 H 24 161/97 H 100 12/12/17 16:34 93 H 22 149/98 H 100 12/12/17 15:11 161/94 H 12/12/17 15:02 91 H 20 178/109 H 100 Intake and Output (Last 8hrs): Intake & Output 12/12/17 12/12/17 12/12/17 06:59 14:59 22:59 Weight 150 lb - Physical Exam Head: Positive for: Atraumatic, Normocephalic Pupils: Positive for: PERRL Conjunctiva: Positive for: Normal Mouth: Positive for: Moist Mucous Membranes Nose (External): Positive for: Atraumatic Neck: Positive for: Normal Range of Motion Respiratory/Chest: Positive for: Clear to Auscultation Cardiovascular: Positive for: Regular Rate and Rhythm Abdomen: Positive for: Normal Bowel Sounds Upper Extremity: Positive for: Normal Inspection Lower Extremity: Positive for: Normal Inspection Neurological: Positive for: Other (lethergic) - Medications Active Medications: Active Medications Generic Name Dose Route Start Last Admin Trade Name Freq PRN Reason Stop Dose Admin Sodium Chloride 1,000 mls @ 100 mls/hr 12/12/17 10:43 12/12/17 10:51 Sodium Chloride 0.9% IV 12/12/17 20:42 100 mls/hr .Q10H STA Administration Lorazepam 100 mg/ Sodium 100 mls @ 8 mls/hr 12/12/17 17:30 Chloride IVPB .[id number] JONNIE Protocol 8 MG/HR - Patient Studies Lab Studies: Lab Studies 12/12/17 12/12/17 12/12/17 Range/Units 11:33 11:15 10:34 WBC (4.8-10.8) K/uL RBC (3.80-5.20) Mil/uL Hgb (12.0-16.0) g/dL Hct (34.0-47.0) % MCV (81.0-99.0) fl MCH (27.0-31.0) pg MCHC (33.0-37.0) g/dL RDW (11.5-14.5) % Plt Count (130-400) K/uL MPV (7.2-11.7) fl Neut % (Auto) (50.0-75.0) % Lymph % (Auto) (20.0-40.0) % Dale % (Auto) (0.0-10.0) % Eos % (Auto) (0.0-4.0) % Baso % (Auto) (0.0-2.0) % Neut # (Auto) (1.8-7.0) K/uL Lymph # (Auto) (1.0-4.3) K/uL Dale # (Auto) (0.0-0.8) K/uL Eos # (Auto) (0.0-0.7) K/uL Baso # (Auto) (0.0-0.2) K/uL pCO2 46 H (35-45) mm/Hg pO2 155 H (80-100) mm/Hg HCO3 24.0 (21-28) mmol/L ABG pH 7.34 L (7.35-7.45) ABG Total CO2 26.2 (22-28) mmol/L ABG O2 Saturation 98.9 H (95-98) % ABG Base Excess -1.3 (-2.0-3.0) mmol/L Jose Test Yes ABG Potassium 3.0 L (3.6-5.2) mmol/L A-a O2 Difference 501.0 mm/Hg Glucose 146 H (65-105) mg/dL Lactate 3.8 H (0.7-2.1) mmol/L FiO2 100.0 % Sodium 144.0 (132-148) mmol/l Potassium (3.6-5.0) MMOL/L Chloride 106.0 (98-107) mmol/L Carbon Dioxide (22-30) mmol/L Anion Gap (10-20) BUN (7-17) mg/dl Creatinine (0.7-1.2) mg/dl Est GFR ( Amer) Est GFR (Non-Af Amer) POC Glucose (mg/dL) 165 H (65-110) mg/dL Random Glucose (65-105) mg/dL Calcium (8.4-10.2) mg/dL Total Bilirubin (0.2-1.3) mg/dl AST (14-36) U/L ALT (9-52) U/L Alkaline Phosphatase (38-126) U/L Total Protein (6.3-8.2) G/DL Albumin (3.5-5.0) g/dL Globulin (2.2-3.9) gm/dL Albumin/Globulin Ratio (1.0-2.1) Arterial Blood Potassium 3.0 L (3.6-5.2) mmol/L Urine Opiates Screen Negative (NEGATIVE) Urine Methadone Screen Negative (NEGATIVE) Ur Barbiturates Screen Negative (NEGATIVE) Ur Phencyclidine Scrn Negative (NEGATIVE) Ur Amphetamines Screen Negative (NEGATIVE) U Benzodiazepines Scrn Negative (NEGATIVE) U Oth Cocaine Metabols Negative (NEGATIVE) U Cannabinoids Screen Negative (NEGATIVE) Alcohol, Quantitative (0-10) mg/dl 12/12/17 12/12/17 Range/Units 10:30 10:30 WBC 16.7 H D (4.8-10.8) K/uL RBC 5.27 H (3.80-5.20) Mil/uL Hgb 13.5 (12.0-16.0) g/dL Hct 42.1 (34.0-47.0) % MCV 79.9 L (81.0-99.0) fl MCH 25.7 L (27.0-31.0) pg MCHC 32.1 L (33.0-37.0) g/dL RDW 15.9 H (11.5-14.5) % Plt Count 241 (130-400) K/uL MPV 9.2 (7.2-11.7) fl Neut % (Auto) 62.8 (50.0-75.0) % Lymph % (Auto) 30.8 (20.0-40.0) % [place] % (Auto) 5.4 (0.0-10.0) % Eos % (Auto) 0.5 (0.0-4.0) % Baso % (Auto) 0.5 (0.0-2.0) % Neut # (Auto) 10.5 H (1.8-7.0) K/uL Lymph # (Auto) 5.2 H (1.0-4.3) K/uL [place] # (Auto) 0.9 H (0.0-0.8) K/uL Eos # (Auto) 0.1 (0.0-0.7) K/uL Baso # (Auto) 0.1 (0.0-0.2) K/uL pCO2 (35-45) mm/Hg pO2 (80-100) mm/Hg HCO3 (21-28) mmol/L ABG pH (7.35-7.45) ABG Total CO2 (22-28) mmol/L ABG O2 Saturation (95-98) % ABG Base Excess (-2.0-3.0) mmol/L Jose Test ABG Potassium (3.6-5.2) mmol/L A-a O2 Difference mm/Hg Glucose (65-105) mg/dL Lactate (0.7-2.1) mmol/L FiO2 % Sodium 147 (132-148) mmol/l Potassium 3.0 L (3.6-5.0) MMOL/L Chloride 104 (98-107) mmol/L Carbon Dioxide 19 L (22-30) mmol/L Anion Gap 27 H (10-20) BUN 10 (7-17) mg/dl Creatinine 0.8 (0.7-1.2) mg/dl Est GFR ( Amer) > 60 Est GFR (Non-Af Amer) > 60 POC Glucose (mg/dL) (65-110) mg/dL Random Glucose 176 H (65-105) mg/dL Calcium 9.6 (8.4-10.2) mg/dL Total Bilirubin 0.5 (0.2-1.3) mg/dl AST 51 H D (14-36) U/L ALT 32 (9-52) U/L Alkaline Phosphatase 107 (38-126) U/L Total Protein 7.8 (6.3-8.2) G/DL Albumin 4.3 (3.5-5.0) g/dL Globulin 3.5 (2.2-3.9) gm/dL Albumin/Globulin Ratio 1.2 (1.0-2.1) Arterial Blood Potassium (3.6-5.2) mmol/L Urine Opiates Screen (NEGATIVE) Urine Methadone Screen (NEGATIVE) Ur Barbiturates Screen (NEGATIVE) Ur Phencyclidine Scrn (NEGATIVE) Ur Amphetamines Screen (NEGATIVE) U Benzodiazepines Scrn (NEGATIVE) U Oth Cocaine Metabols (NEGATIVE) U Cannabinoids Screen (NEGATIVE) Alcohol, Quantitative < 10 (0-10) mg/dl Laboratory Results - last 24 hr 12/12/17 12/12/17 12/12/17 10:30 10:30 10:34 WBC 16.7 H D RBC 5.27 H Hgb 13.5 Hct 42.1 MCV 79.9 L MCH 25.7 L MCHC 32.1 L RDW 15.9 H Plt Count 241 MPV 9.2 Neut % (Auto) 62.8 Lymph % (Auto) 30.8 Dale % (Auto) 5.4 Eos % (Auto) 0.5 Baso % (Auto) 0.5 Neut # (Auto) 10.5 H Lymph # (Auto) 5.2 H [place] # (Auto) 0.9 H Eos # (Auto) 0.1 Baso # (Auto) 0.1 pCO2 pO2 HCO3 ABG pH ABG Total CO2 ABG O2 Saturation ABG Base Excess Jose Test ABG Potassium A-a O2 Difference Glucose Lactate FiO2 Sodium 147 Potassium 3.0 L Chloride 104 Carbon Dioxide 19 L Anion Gap 27 H BUN 10 Creatinine 0.8 Est GFR ( Amer) > 60 Est GFR (Non-Af Amer) > 60 POC Glucose (mg/dL) 165 H Random Glucose 176 H Calcium 9.6 Total Bilirubin 0.5 AST 51 H D ALT 32 Alkaline Phosphatase 107 Total Protein 7.8 Albumin 4.3 Globulin 3.5 Albumin/Globulin Ratio 1.2 Arterial Blood Potassium Urine Opiates Screen Urine Methadone Screen Ur Barbiturates Screen Ur Phencyclidine Scrn Ur Amphetamines Screen U Benzodiazepines Scrn U Oth Cocaine Metabols U Cannabinoids Screen Alcohol, Quantitative < 10 12/12/17 12/12/17 11:15 11:33 WBC RBC Hgb Hct MCV MCH MCHC RDW Plt Count MPV Neut % (Auto) Lymph % (Auto) [place] % (Auto) Eos % (Auto) Baso % (Auto) Neut # (Auto) Lymph # (Auto) Dale # (Auto) Eos # (Auto) Baso # (Auto) pCO2 46 H pO2 155 H HCO3 24.0 ABG pH 7.34 L ABG Total CO2 26.2 ABG O2 Saturation 98.9 H ABG Base Excess -1.3 Jose Test Yes ABG Potassium 3.0 L A-a O2 Difference 501.0 Glucose 146 H Lactate 3.8 H FiO2 100.0 Sodium 144.0 Potassium Chloride 106.0 Carbon Dioxide Anion Gap BUN Creatinine Est GFR ( Amer) Est GFR (Non-Af Amer) POC Glucose (mg/dL) Random Glucose Calcium Total Bilirubin AST ALT Alkaline Phosphatase Total Protein Albumin Globulin Albumin/Globulin Ratio Arterial Blood Potassium 3.0 L Urine Opiates Screen Negative Urine Methadone Screen Negative Ur Barbiturates Screen Negative Ur Phencyclidine Scrn Negative Ur Amphetamines Screen Negative U Benzodiazepines Scrn Negative U Oth Cocaine Metabols Negative U Cannabinoids Screen Negative Alcohol, Quantitative EKG/Cardiology Studies: Cardiology / EKG Studies 12/12/17 10:42 ELECTROCARDIOGRAM Stat Comment: Mode Of Transportation: Reason For Exam: seizure Fingerstick Blood Sugar Results: 165 Critical Care Progress Note - Nutrition Nutrition: Nutrition Category Date Time Status Regular Diet [DIET] Diets 12/12/17 Dinner Active Assessment/Plan - Assessment and Plan (Free Text) Assessment: A/P Seizer disorder, ETOH withdrawal, HTN, h/o cerebral aneurism s/p clipping - Ativan - Monitor for withdrawal - Neurology follow up - DVT prophylaxis - Follow up labs critical care 35 min
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
[2017-12-12] MEDS ORDERED: Potassium Chloride 20 mEq 100 ML IVPB SCH (22:00)
[2017-12-12] MEDS ORDERED: Magnesium Sulfate 1 GM in Dextrose 5% In Water 100 ML IVPB ONE (22:13)
[2017-12-12] MEDS: Potassium Ch 20mEq in D5-1/2NS 1,000 ML IV SCH (22:32)
[2017-12-13] MEDS ORDERED: Pneumococcal 23-Valent Vaccine IM ONE (00:39)
--- NOTE | 2017-12-13 07:32 | CP.CCUPN ---
CCU Subjective - Physician Review Events Since Last Encounter (Free Text): 12/13/17 07:30 Patient lethargic, no fever, no vomiting, move all extremities, no distress, events reviewed CCU Objective - Vital Signs / Intake & Output Vital Signs (Last 4 hours): Vital Signs Temp Pulse Resp BP Pulse Ox 12/13/17 04:00 98.7 F 86 16 127/84 98 Intake and Output (Last 8hrs): Intake & Output 12/12/17 12/13/17 12/13/17 22:59 06:59 14:59 Intake Total 100 800 Balance 100 800 Weight 137 lb Intake: IV 100 600 Intake, Piggyback 200 Other: # Bowel Movements 0 - Physical Exam Head: Positive for: Atraumatic, Normocephalic Pupils: Positive for: PERRL Conjunctiva: Positive for: Normal Mouth: Positive for: Moist Mucous Membranes Nose (External): Positive for: Atraumatic Neck: Positive for: Normal Range of Motion Respiratory/Chest: Positive for: Clear to Auscultation Cardiovascular: Positive for: Regular Rate and Rhythm Abdomen: Positive for: Normal Bowel Sounds Upper Extremity: Positive for: Normal Inspection Lower Extremity: Positive for: Normal Inspection Neurological: Positive for: Other (lethergic) - Medications Active Medications: Active Medications Generic Name Dose Route Start Last Admin Trade Name Freq PRN Reason Stop Dose Admin Enoxaparin Sodium 40 mg 12/13/17 09:00 Lovenox SC DAILY JONNIE Protocol Lorazepam 100 mg/ Sodium 100 mls @ 8 mls/hr 12/12/17 17:30 12/12/17 19:22 Chloride IVPB 8 mls/hr .[id number] JONNIE Administration Protocol 8 MG/HR Potassium Chloride/Dextrose/Sod Cl 1,000 mls @ 100 mls/hr 12/12/17 19:45 22:32 Potassium Chl 20 Meq In D5-1/2ns IV 12/13/17 19:40 100 mls/hr .[id number] JONNIE Administration Valproate Sodium 500 mg/ 105 mls @ 100 mls/hr 12/13/17 09:00 Sodium Chloride IVPB 12/13/17 10:02 BID ONE - Patient Studies Lab Studies: Lab Studies 12/12/17 12/12/17 12/12/17 Range/Units 21:10 11:33 11:15 WBC (4.8-10.8) K/uL RBC (3.80-5.20) Mil/uL Hgb (12.0-16.0) g/dL Hct (34.0-47.0) % MCV (81.0-99.0) fl MCH (27.0-31.0) pg MCHC (33.0-37.0) g/dL RDW (11.5-14.5) % Plt Count (130-400) K/uL MPV (7.2-11.7) fl Neut % (Auto) (50.0-75.0) % Lymph % (Auto) (20.0-40.0) % Stevens % (Auto) (0.0-10.0) % Eos % (Auto) (0.0-4.0) % Baso % (Auto) (0.0-2.0) % Neut # (Auto) (1.8-7.0) K/uL Lymph # (Auto) (1.0-4.3) K/uL Stevens # (Auto) (0.0-0.8) K/uL Eos # (Auto) (0.0-0.7) K/uL Baso # (Auto) (0.0-0.2) K/uL pCO2 46 H (35-45) mm/Hg pO2 155 H (80-100) mm/Hg HCO3 24.0 (21-28) mmol/L ABG pH 7.34 L (7.35-7.45) ABG Total CO2 26.2 (22-28) mmol/L ABG O2 Saturation 98.9 H (95-98) % ABG Base Excess -1.3 (-2.0-3.0) mmol/L Jose Test Yes ABG Potassium 3.0 L (3.6-5.2) mmol/L A-a O2 Difference 501.0 mm/Hg Glucose 146 H (65-105) mg/dL Lactate 3.8 H (0.7-2.1) mmol/L FiO2 100.0 % Sodium 144.0 (132-148) mmol/l Potassium (3.6-5.0) MMOL/L Chloride 106.0 (98-107) mmol/L Carbon Dioxide (22-30) mmol/L Anion Gap (10-20) BUN (7-17) mg/dl Creatinine (0.7-1.2) mg/dl Est GFR ( Amer) Est GFR (Non-Af Amer) POC Glucose (mg/dL) (65-110) mg/dL Random Glucose (65-105) mg/dL Calcium (8.4-10.2) mg/dL Magnesium 1.4 L (1.6-2.3) MG/DL Total Bilirubin (0.2-1.3) mg/dl AST (14-36) U/L ALT (9-52) U/L Alkaline Phosphatase (38-126) U/L Total Protein (6.3-8.2) G/DL Albumin (3.5-5.0) g/dL Globulin (2.2-3.9) gm/dL Albumin/Globulin Ratio (1.0-2.1) Arterial Blood Potassium 3.0 L (3.6-5.2) mmol/L Urine Opiates Screen Negative (NEGATIVE) Urine Methadone Screen Negative (NEGATIVE) Ur Barbiturates Screen Negative (NEGATIVE) Ur Phencyclidine Scrn Negative (NEGATIVE) Ur Amphetamines Screen Negative (NEGATIVE) U Benzodiazepines Scrn Negative (NEGATIVE) U Oth Cocaine Metabols Negative (NEGATIVE) U Cannabinoids Screen Negative (NEGATIVE) Alcohol, Quantitative (0-10) mg/dl 12/12/17 12/12/17 12/12/17 Range/Units 10:34 10:30 10:30 WBC 16.7 H D (4.8-10.8) K/uL RBC 5.27 H (3.80-5.20) Mil/uL Hgb 13.5 (12.0-16.0) g/dL Hct 42.1 (34.0-47.0) % MCV 79.9 L (81.0-99.0) fl MCH 25.7 L (27.0-31.0) pg MCHC 32.1 L (33.0-37.0) g/dL RDW 15.9 H (11.5-14.5) % Plt Count 241 (130-400) K/uL MPV 9.2 (7.2-11.7) fl Neut % (Auto) 62.8 (50.0-75.0) % Lymph % (Auto) 30.8 (20.0-40.0) % Stevens % (Auto) 5.4 (0.0-10.0) % Eos % (Auto) 0.5 (0.0-4.0) % Baso % (Auto) 0.5 (0.0-2.0) % Neut # (Auto) 10.5 H (1.8-7.0) K/uL Lymph # (Auto) 5.2 H (1.0-4.3) K/uL Stevens # (Auto) 0.9 H (0.0-0.8) K/uL Eos # (Auto) 0.1 (0.0-0.7) K/uL Baso # (Auto) 0.1 (0.0-0.2) K/uL pCO2 (35-45) mm/Hg pO2 (80-100) mm/Hg HCO3 (21-28) mmol/L ABG pH (7.35-7.45) ABG Total CO2 (22-28) mmol/L ABG O2 Saturation (95-98) % ABG Base Excess (-2.0-3.0) mmol/L Jose Test ABG Potassium (3.6-5.2) mmol/L A-a O2 Difference mm/Hg Glucose (65-105) mg/dL Lactate (0.7-2.1) mmol/L FiO2 % Sodium 147 (132-148) mmol/l Potassium 3.0 L (3.6-5.0) MMOL/L Chloride 104 (98-107) mmol/L Carbon Dioxide 19 L (22-30) mmol/L Anion Gap 27 H (10-20) BUN 10 (7-17) mg/dl Creatinine 0.8 (0.7-1.2) mg/dl Est GFR ( Amer) > 60 Est GFR (Non-Af Amer) > 60 POC Glucose (mg/dL) 165 H (65-110) mg/dL Random Glucose 176 H (65-105) mg/dL Calcium 9.6 (8.4-10.2) mg/dL Magnesium (1.6-2.3) MG/DL Total Bilirubin 0.5 (0.2-1.3) mg/dl AST 51 H D (14-36) U/L ALT 32 (9-52) U/L Alkaline Phosphatase 107 (38-126) U/L Total Protein 7.8 (6.3-8.2) G/DL Albumin 4.3 (3.5-5.0) g/dL Globulin 3.5 (2.2-3.9) gm/dL Albumin/Globulin Ratio 1.2 (1.0-2.1) Arterial Blood Potassium (3.6-5.2) mmol/L Urine Opiates Screen (NEGATIVE) Urine Methadone Screen (NEGATIVE) Ur Barbiturates Screen (NEGATIVE) Ur Phencyclidine Scrn (NEGATIVE) Ur Amphetamines Screen (NEGATIVE) U Benzodiazepines Scrn (NEGATIVE) U Oth Cocaine Metabols (NEGATIVE) U Cannabinoids Screen (NEGATIVE) Alcohol, Quantitative < 10 (0-10) mg/dl Laboratory Results - last 24 hr 12/12/17 12/12/17 12/12/17 10:30 10:30 10:34 WBC 16.7 H D RBC 5.27 H Hgb 13.5 Hct 42.1 MCV 79.9 L MCH 25.7 L MCHC 32.1 L RDW 15.9 H Plt Count 241 MPV 9.2 Neut % (Auto) 62.8 Lymph % (Auto) 30.8 Stevens % (Auto) 5.4 Eos % (Auto) 0.5 Baso % (Auto) 0.5 Neut # (Auto) 10.5 H Lymph # (Auto) 5.2 H Stevens # (Auto) 0.9 H Eos # (Auto) 0.1 Baso # (Auto) 0.1 pCO2 pO2 HCO3 ABG pH ABG Total CO2 ABG O2 Saturation ABG Base Excess Jose Test ABG Potassium A-a O2 Difference Glucose Lactate FiO2 Sodium 147 Potassium 3.0 L Chloride 104 Carbon Dioxide 19 L Anion Gap 27 H BUN 10 Creatinine 0.8 Est GFR ( Amer) > 60 Est GFR (Non-Af Amer) > 60 POC Glucose (mg/dL) 165 H Random Glucose 176 H Calcium 9.6 Magnesium Total Bilirubin 0.5 AST 51 H D ALT 32 Alkaline Phosphatase 107 Total Protein 7.8 Albumin 4.3 Globulin 3.5 Albumin/Globulin Ratio 1.2 Arterial Blood Potassium Urine Opiates Screen Urine Methadone Screen Ur Barbiturates Screen Ur Phencyclidine Scrn Ur Amphetamines Screen U Benzodiazepines Scrn U Oth Cocaine Metabols U Cannabinoids Screen Alcohol, Quantitative < 10 0412/12/17 12/12/17 11:15 11:33 21:10 WBC RBC Hgb Hct MCV MCH MCHC RDW Plt Count MPV Neut % (Auto) Lymph % (Auto) Stevens % (Auto) Eos % (Auto) Baso % (Auto) Neut # (Auto) Lymph # (Auto) Stevens # (Auto) Eos # (Auto) Baso # (Auto) pCO2 46 H pO2 155 H HCO3 24.0 ABG pH 7.34 L ABG Total CO2 26.2 ABG O2 Saturation 98.9 H ABG Base Excess -1.3 Jose Test Yes ABG Potassium 3.0 L A-a O2 Difference 501.0 Glucose 146 H Lactate 3.8 H FiO2 100.0 Sodium 144.0 Potassium Chloride 106.0 Carbon Dioxide Anion Gap BUN Creatinine Est GFR ( Amer) Est GFR (Non-Af Amer) POC Glucose (mg/dL) Random Glucose Calcium Magnesium 1.4 L Total Bilirubin AST ALT Alkaline Phosphatase Total Protein Albumin Globulin Albumin/Globulin Ratio Arterial Blood Potassium 3.0 L Urine Opiates Screen Negative Urine Methadone Screen Negative Ur Barbiturates Screen Negative Ur Phencyclidine Scrn Negative Ur Amphetamines Screen Negative U Benzodiazepines Scrn Negative U Oth Cocaine Metabols Negative U Cannabinoids Screen Negative Alcohol, Quantitative EKG/Cardiology Studies: Cardiology / EKG Studies 12/12/17 10:42 ELECTROCARDIOGRAM Stat Comment: Mode Of Transportation: Reason For Exam: seizure Fingerstick Blood Sugar Results: 165 Critical Care Progress Note - Nutrition Nutrition: Nutrition Category Date Time Status NPO Diet [DIET] Diets 12/12/17 Dinner Active Assessment/Plan - Assessment and Plan (Free Text) Assessment: A/P Seizer disorder, ETOH withdrawal, HTN, h/o cerebral aneurism s/p clipping - Monitor for withdrawal - Neurology follow up - DVT prophylaxis - Follow up labs - BP control
[2017-12-13 07:56] LABS: BLOOD UREA NITROGEN 4 mg/dl (7-17); CALCIUM 9.2 mg/dL (8.4-10.2); GFR AFRICAN-AMERICAN > 60; GFR NON-AFRICAN AMERICAN > 60
[2017-12-13] MEDS: Enoxaparin 40 mg Syringe SC SCH (08:17)
[2017-12-13] MEDS: Potassium Ch 20mEq in D5-1/2NS 1,000 ML IV SCH ×2 (08:18→20:04)
[2017-12-13] MEDS ORDERED: Valproate 500 MG in Sodium Chloride 0.9% 100 ML IVPB ONE (09:00)
--- NOTE | 2017-12-13 09:02 | RAD ---
HISTORY: admission COMPARISON: Chest radiograph dated 03/11/2017. FINDINGS: LUNGS: Right basilar atelectasis. PLEURA: Small right pleural effusion. No pneumothorax apparent. CARDIOVASCULAR: Cardiomediastinal silhouette unchanged. OSSEOUS STRUCTURES: Unchanged. VISUALIZED UPPER ABDOMEN: Right upper quadrant surgical clips redemonstrated. OTHER FINDINGS: Partially imaged right-sided ventriculopleural shunt catheter. IMPRESSION: Small right pleural effusion and right basilar atelectasis, likely related to ventriculopleural shunt catheter.
--- NOTE | 2017-12-13 09:07 | CP.PCM.PN ---
Subjective - Date & Time of Evaluation Date of Evaluation: 12/13/17 Time of Evaluation: 09:01 - Subjective Subjective: Ms. Terry Santoro was seen and examined at the bedside in the ICU. She is confused and restless. Her pupils are sluggish and 2 mm. She moves all extremities.. She is unable to follow simple commands. She remains on 1:1 sitter for patient safety.She is receiving on ativan drip with a lower dose. There was no untoward events overnight. Objective - Vital Signs/Intake and Output Vital Signs (last 24 hours): Temp Pulse Resp BP Pulse Ox 98.7 F 91 H 22 150/114 H 98 12/13/17 08:00 12/13/17 08:00 12/13/17 08:00 12/13/17 08:00 12/13/17 08:00 Intake and Output: 12/13/17 12/13/17 06:59 18:59 Intake Total 1100 5 Output Total 1000 Balance 100 5 - Medications Medications: Current Medications Enoxaparin Sodium (Lovenox) 40 mg SC DAILY JONNIE PRN Reason: Protocol Last Admin: 12/13/17 08:17 Dose: 40 mg Lorazepam 100 mg/ Sodium (Chloride) 100 mls @ 8 mls/hr IVPB .[id number] JONNIE; 8 MG/ HR PRN Reason: Protocol Last Admin: 12/12/17 19:22 Dose: 8 mls/hr Potassium Chloride/Dextrose/Sod Cl (Potassium Chl 20 Meq In D5-1/2ns) 1,000 mls @ 100 mls/hr IV .Q10H JONNIE Stop: 12/13/17 19:40 Last Admin: 12/13/17 08:18 Dose: 100 mls/hr Valproate Sodium 500 mg/ (Sodium Chloride) 105 mls @ 100 mls/hr IVPB BID ONE Stop: 12/13/17 10:02 Last Admin: 12/13/17 08:19 Dose: 100 mls/hr - Labs Labs: 12/12/17 10:30 12/13/17 05:20 - Constitutional Appears: No Acute Distress - Head Exam Head Exam: NORMAL INSPECTION - Eye Exam Pupil Exam: PERRL Additional comments: sluggish - Neurological Exam Neurological Exam: Awake Neuro motor strength exam: Left Upper Extremity: 4, Right Upper Extremity: 4, Left Lower Extremity: 4, Right Lower Extremity: 4 Additional comments: She is confused with episode of confusion, unable to participate during assessment. Assessment and Plan (1) Alcohol withdrawal seizure Assessment & Plan: Case discussed with Dr. Larios, continue all current medical regimen. Recommend to lower rate of ativan drip and start on Benadryl 50 mg IV Q 8. Recommend depakote and liver profile monitoring. EEG sj. MRI is recommended pending the clarification of intracranial artery coils. Status: Acute
[2017-12-13] MEDS ORDERED: DiphenhydrAMINE 50 mg/ml Inj IVP SCH (09:15)
[2017-12-13 09:37] LABS: HEMOGLOBIN 11.9 g/dL (12.0-16.0); MEAN CELL VOLUME 80.2 fl (81.0-99.0); MEAN CORPUSCULAR HEMOGLOBIN 25.9 pg (27.0-31.0); MEAN CORPUSCULAR HGB CONC 32.3 g/dL (33.0-37.0); RBC 4.61 Mil/uL (3.80-5.20); RED CELL DISTRIBUTION WIDTH 15.6 % (11.5-14.5); WHITE BLOOD COUNT 9.8 K/uL (4.8-10.8)
--- NOTE | 2017-12-13 10:28 | CARD ---
APPROVED REPORT EKG Measurement Heart [id number] <Conclusion> Sinus tachycardia ST & T wave abnormality, consider anterolateral ischemia Abnormal ECG
[2017-12-13] MEDS ORDERED: Labetalol 5mg/ml (4ml) IVP ONE (20:00)
[2017-12-13] MEDS ORDERED: Labetalol 5 mg/ml Inj 20ML IVP ONE (20:00)
--- NOTE | 2017-12-13 23:21 | CP.PCM.PN ---
Subjective - Date & Time of Evaluation Date of Evaluation: 12/13/17 Time of Evaluation: 11:30 - Subjective Subjective: Patient remains confused at times Noted elevated BP Has no headaches Has no fever. Objective - Vital Signs/Intake and Output Vital Signs (last 24 hours): Temp Pulse Resp BP Pulse Ox 98.5 F 93 H 27 H 164/108 H 97 12/13/17 16:00 12/13/17 18:00 12/13/17 18:00 12/13/17 18:00 12/13/17 18:00 Intake and Output: 12/13/17 12/14/17 18:59 06:59 Intake Total 1305 Output Total 900 Balance 405 - Medications Medications: Current Medications Amlodipine Besylate (Norvasc) 5 mg PO DAILY [facility] Enoxaparin Sodium (Lovenox) 40 mg SC DAILY [facility] PRN Reason: Protocol Last Admin: 12/13/17 08:17 Dose: 40 mg Lorazepam (Ativan) 0.5 mg IVP Q6 PRN PRN Reason: Agitation Last Admin: 12/13/17 16:34 Dose: 0.5 mg Metoprolol Succinate (Toprol Xl) 25 mg PO DAILY [facility] Nicotine (Nicoderm Cq) 1 patch TD DAILY [facility] Last Admin: 12/13/17 13:04 Dose: 1 patch Valsartan (Diovan) 160 mg PO DAILY [facility] - Labs Labs: 12/13/17 05:20 12/13/17 05:20 - Head Exam Head Exam: NORMAL INSPECTION - Eye Exam Eye Exam: Normal appearance - Respiratory Exam Respiratory Exam: Clear to Ausculation Bilateral, NORMAL BREATHING PATTERN - Cardiovascular Exam Cardiovascular Exam: REGULAR RHYTHM - GI/Abdominal Exam GI & Abdominal Exam: Normal Bowel Sounds - Neurological Exam Neurological Exam: Altered, Awake, CN II-XII Intact - Psychiatric Exam Psychiatric exam: Anxious, Flat Affect - Skin Skin Exam: Normal Color Assessment and Plan (1) Transient ischemic attack Status: Acute (2) Altered mental status, unspecified Status: Acute (3) Complex partial epilepsy Status: Acute (4) Visual hallucination Status: Acute (5) Alcoholism Status: Acute (6) Hypertension Status: Acute (7) Psychosis Status: Acute (8) Depression Status: Acute (9) Alcohol withdrawal seizure Status: Acute - Assessment and Plan (Free Text) Plan: Con tmeds Cont tx Bp meds low salt follow up with Psych and neuro
[2017-12-14 06:24] LABS: LDL CHOLESTEROL 156 mg/dL (0-129)
[2017-12-14 06:59] LABS: BLOOD UREA NITROGEN 2 mg/dl (7-17); CALCIUM 9.3 mg/dL (8.4-10.2); GFR AFRICAN-AMERICAN > 60; GFR NON-AFRICAN AMERICAN > 60; HDL CHOLESTEROL 43 MG/DL (30-70)
[2017-12-14 07:30] LABS: HEMOGLOBIN 12.6 g/dL (12.0-16.0); MEAN CELL VOLUME 80.4 fl (81.0-99.0); MEAN CORPUSCULAR HEMOGLOBIN 26.2 pg (27.0-31.0); MEAN CORPUSCULAR HGB CONC 32.5 g/dL (33.0-37.0); RBC 4.8 Mil/uL (3.80-5.20); RED CELL DISTRIBUTION WIDTH 15.9 % (11.5-14.5); WHITE BLOOD COUNT 8.2 K/uL (4.8-10.8)
[2017-12-14] MEDS ORDERED: Labetalol 5 mg/ml Inj 20ML IVP STA (08:56)
--- NOTE | 2017-12-14 09:06 | CT ---
PROCEDURE: CT Angiography of the Brain. HISTORY: left sided weakness/seizures COMPARISON: None available. TECHNIQUE: CT angiography of the intracranial arteries was performed. Coronal and sagittal maximum intensity projection reformated images were generated. This CT exam was performed using one or more of the following dose reduction techniques: Automated exposure control, adjustment of the mA and/or kV according to patient size, and/or use of iterative reconstruction technique. FINDINGS: INTERNAL CEREBRAL ARTERIES: The skull base, petrous, cavernous and left supraclinoid segments are bilaterally widely patent though minimally atherosclerotic. Hyperdense material is appreciated at the right supraclinoid ICA segment or proximal right MCA status post in the coil placement for aneurysm therapy. ANTERIOR CEREBRAL ARTERIES: Unremarkable. A1 and A2 segments are widely patent. Smaller distal branches unremarkable, as visualized. MIDDLE CEREBRAL ARTERIES: Unremarkable. M1 and M2 segments are widely patent. Perisylvian branches grossly symmetric. POSTERIOR CIRCULATION: Basilar Artery: Unremarkable. Distal Vertebral Arteries: Unremarkable. Posterior Cerebral Arteries: Unremarkable. Posterior Inferior Cerebellar Arteries: Unremarkable. NECK CTA: Common Carotid arteries: The bilateral common carotid appear widely patent from their origins to their bifurcations with no significant stenosis appreciated. No evidence to suggest common carotid artery dissection. Internal Carotid arteries: No significant stenosis is appreciated throughout the cervical internal carotid artery segments bilaterally and there is no evidence of dissection either. External Carotid arteries: Appear unremarkable bilaterally. Vertebral arteries: The bilateral vertebral arteries appear normal in caliber from their origins to their junction with the basilar artery. No significant stenosis or definite pattern of dissection. ANEURYSM/ VASCULAR MALFORMATIONS: As above. OTHER FINDINGS: None. IMPRESSION: 1. Status post endovascular therapy for aneurysm supraclinoid right ICA or proximal most segment of the right MCA with robust enhancement appreciated throughout the [place] arterial anatomy symmetrically. No patent aneurysm is appreciated this time or definite occlusion. No significant stenosis grossly identified. 2. Limited bilateral cavernous ICA atherosclerosis bilaterally. 3. No significant stenosis identified in the cervical bilateral common and internal carotid as well as vertebral arteries. Concordant preliminary report from [facility], 02/11/2018.
[2017-12-14] MEDS: Metoprolol Succinate 25 mg XL Tab PO SCH (09:13)
--- NOTE | 2017-12-14 09:22 | CP.PCM.PN ---
Subjective - Date & Time of Evaluation Date of Evaluation: 12/14/17 Time of Evaluation: 09:19 - Subjective Subjective: Ms. Terry Santoro was seen and examined at the bedside in ICU. She is confused, restless. She attempts to climb out of her bed, remains on 1:1 sitter for patient safety.She is able to move all extremities spontaneously, but unable to follow commands. Her blood pressure is elevated, labetalol was administered. Spoke with patients' daughter regarding patient's hx of cerebral clipping. She is able to provide patient's neurosurgeon ( Dr. Herb Quintanilla tel. [phone]). Left a message to Dr. Quintanilla's office to provide the information. Objective - Vital Signs/Intake and Output Vital Signs (last 24 hours): Temp Pulse Resp BP Pulse Ox 97.4 F L 81 23 166/113 H 100 12/14/17 04:00 12/14/17 06:00 12/14/17 06:00 12/14/17 06:00 12/14/17 06:00 Intake and Output: 12/14/17 12/14/17 06:59 18:59 Intake Total 1200 Output Total 800 Balance 400 - Medications Medications: Current Medications Amlodipine Besylate (Norvasc) 5 mg PO DAILY [facility] Last Admin: 12/14/17 09:12 Dose: Not Given Enoxaparin Sodium (Lovenox) 40 mg SC DAILY [facility] PRN Reason: Protocol Last Admin: 12/13/17 08:17 Dose: 40 mg Lorazepam (Ativan) 0.5 mg IVP Q6 PRN PRN Reason: Agitation Last Admin: 12/14/17 04:30 Dose: 0.5 mg Metoprolol Succinate (Toprol Xl) 25 mg PO DAILY [facility] Last Admin: 12/14/17 09:13 Dose: Not Given Nicotine (Nicoderm Cq) 1 patch TD DAILY [facility] Last Admin: 12/13/17 13:04 Dose: 1 patch Valsartan (Diovan) 160 mg PO DAILY [facility] Last Admin: 12/14/17 09:12 Dose: Not Given - Labs Labs: 12/14/17 04:25 12/14/17 04:25 - Constitutional Appears: No Acute Distress - Head Exam Head Exam: NORMAL INSPECTION - Eye Exam Pupil Exam: PERRL Additional comments: sluggish - Neurological Exam Neurological Exam: Alert, Awake Neuro motor strength exam: Left Upper Extremity: 3, Right Upper Extremity: 3, Left Lower Extremity: 3, Right Lower Extremity: 3 Additional comments: Neurological unchanged, confused, unable to follow any commands. Assessment and Plan (1) Alcohol withdrawal seizure Assessment & Plan: Case discussed with Dr. Michel, continue all current medical regimen. Recommend blood pressure control. Recommend MRI of the brain, awaiting cerebral clipping information from patient's neurosurgeon. Status: Acute
[2017-12-14] MEDS: Enoxaparin 40 mg Syringe SC SCH (10:10)
[2017-12-14] MEDS ORDERED: Potassium Ch 20mEq in D5-1/2NS 1,000 ML IV SCH (11:15)
--- NOTE | 2017-12-14 11:35 | CP.PCM.PN ---
Subjective - Date & Time of Evaluation Date of Evaluation: 12/14/17 Time of Evaluation: 11:34 - Subjective Subjective: Remains very confused. has no fever BP elevated Does not take anything by mouth. Objective - Vital Signs/Intake and Output Vital Signs (last 24 hours): Temp Pulse Resp BP Pulse Ox 99.3 F 87 26 H 178/113 H 99 12/14/17 08:00 12/14/17 08:45 12/14/17 08:45 12/14/17 08:45 12/14/17 08:45 Intake and Output: 12/14/17 12/14/17 06:59 18:59 Intake Total 1200 200 Output Total 800 Balance 400 200 - Medications Medications: Current Medications Amlodipine Besylate (Norvasc) 5 mg PO DAILY [facility] Last Admin: 12/14/17 09:12 Dose: Not Given Enalaprilat (Vasotec Iv) 1.25 mg IV Q6 [facility] Enoxaparin Sodium (Lovenox) 40 mg SC DAILY [facility] PRN Reason: Protocol Last Admin: 12/14/17 10:10 Dose: 40 mg Potassium Chloride/Dextrose/Sod Cl (Potassium Chl 20 Meq In D5-1/2ns) 1,000 mls @ 80 mls/hr IV .[id number] [facility] Stop: 12/15/17 11:05 Lorazepam (Ativan) 0.5 mg IVP Q6 PRN PRN Reason: Agitation Last Admin: 12/14/17 10:00 Dose: 0.5 mg Metoprolol Succinate (Toprol Xl) 25 mg PO DAILY [facility] Last Admin: 12/14/17 09:13 Dose: Not Given Nicotine (Nicoderm Cq) 1 patch TD DAILY [facility] Last Admin: 12/14/17 10:10 Dose: 1 patch Valsartan (Diovan) 160 mg PO DAILY [facility] Last Admin: 12/14/17 09:12 Dose: Not Given - Labs Labs: 12/14/17 04:25 12/14/17 04:25 - Head Exam Head Exam: NORMAL INSPECTION - Eye Exam Eye Exam: Normal appearance - ENT Exam ENT Exam: Mucous Membranes Moist - Respiratory Exam Respiratory Exam: Clear to Ausculation Bilateral - Cardiovascular Exam Cardiovascular Exam: REGULAR RHYTHM - GI/Abdominal Exam GI & Abdominal Exam: Normal Bowel Sounds - Neurological Exam Neurological Exam: Altered, Awake Assessment and Plan (1) Transient ischemic attack Status: Acute (2) Altered mental status, unspecified Status: Acute (3) Complex partial epilepsy Status: Acute (4) Visual hallucination Status: Acute (5) Alcoholism Status: Acute (6) Hypertension Status: Acute (7) Psychosis Status: Acute (8) Depression Status: Acute (9) Alcohol withdrawal seizure Status: Acute - Assessment and Plan (Free Text) Plan: Cont meds Cont tx Cont tx Phys therapy eval follow up with neuro
--- NOTE | 2017-12-14 17:20 | CP.CCUPN ---
CCU Subjective - Physician Review Events Since Last Encounter (Free Text): 12/14/17 17:18 The patient was Seen/interviewed and examined by me at the bedside during ICU round, Medical records reviewed and Management issues were discussed and formulated with the house staff. Events reviewed Awake, confused. Comfortable, NAD Seizure free On 1:1 constant observations CCU Objective - Vital Signs / Intake & Output Intake and Output (Last 8hrs): Intake & Output 12/14/17 12/14/17 12/14/17 06:59 14:59 22:59 Intake Total 800 700 200 Output Total 800 1000 Balance 0 700 -800 Intake: IV 800 700 200 Output: Urine 800 1000 Urethral (Odom) 800 1000 - Physical Exam Head: Positive for: Atraumatic, Normocephalic Pupils: Positive for: PERRL Conjunctiva: Positive for: Normal Mouth: Positive for: Moist Mucous Membranes Nose (External): Positive for: Atraumatic Neck: Positive for: Normal Range of Motion Respiratory/Chest: Positive for: Clear to Auscultation Cardiovascular: Positive for: Regular Rate and Rhythm Abdomen: Positive for: Normal Bowel Sounds Upper Extremity: Positive for: Normal Inspection Lower Extremity: Positive for: Normal Inspection Neurological: Positive for: Other (lethergic) - Medications Active Medications: Active Medications Generic Name Dose Route Start Last Admin Trade Name Freq PRN Reason Stop Dose Admin Amlodipine Besylate 5 mg 12/14/17 09:00 12/14/17 09:12 Norvasc PO Not Given DAILY JONNIE Enalaprilat 1.25 mg 12/14/17 16:00 Vasotec Iv IV Q6 JONNIE Enoxaparin Sodium 40 mg 12/13/17 09:00 12/14/17 10:10 Lovenox SC 40 mg DAILY JONNIE Administration Protocol Potassium Chloride/Dextrose/Sod Cl 1,000 mls @ 80 mls/hr 12/14/17 11:15 12/14 12:17 Potassium Chl 20 Meq In D5-1/2ns IV 12/15/17 11:05 80 mls/hr .[id number] JONNIE Administration Lorazepam 0.5 mg 12/13/17 13:23 12/14/17 10:00 Ativan IVP 0.5 mg Q6 PRN Administration Agitation Metoprolol Succinate 25 mg 12/14/17 09:00 12/14/17 09:13 Toprol Xl PO Not Given DAILY JONNIE Nicotine 1 patch 12/13/17 12:45 12/14/17 10:10 Nicoderm Cq TD 1 patch DAILY JONNIE Administration Valsartan 160 mg 12/14/17 09:00 12/14/17 09:12 Diovan PO Not Given DAILY JONNIE - Patient Studies Lab Studies: Microbiology Studies 12/12/17 22:50 Urine Culture - Preliminary Urine,Clean Catch Gram Negative Jony Lab Studies 12/14/17 12/14/17 12/14/17 Range/Units 04:25 04:25 04:25 WBC 8.2 (4.8-10.8) K/uL RBC 4.80 (3.80-5.20) Mil/uL Hgb 12.6 (12.0-16.0) g/dL Hct 38.6 (34.0-47.0) % MCV 80.4 L (81.0-99.0) fl MCH 26.2 L (27.0-31.0) pg MCHC 32.5 L (33.0-37.0) g/dL RDW 15.9 H (11.5-14.5) % Plt Count 185 (130-400) K/uL Sodium 148 (132-148) mmol/l Potassium 3.7 (3.6-5.0) MMOL/L Chloride 110 H (98-107) mmol/L Carbon Dioxide 22 (22-30) mmol/L Anion Gap 20 (10-20) BUN 2 L (7-17) mg/dl Creatinine 0.6 L (0.7-1.2) mg/dl Est GFR ( Amer) > 60 Est GFR (Non-Af Amer) > 60 Random Glucose 88 (65-105) mg/dL Calcium 9.3 (8.4-10.2) mg/dL Triglycerides 248 H D (0-149) mg/DL Cholesterol 241 H (0-199) mg/dL LDL Cholesterol Direct 156 H (0-129) mg/dL HDL Cholesterol 43 (30-70) MG/DL Valproic Acid 48.1 L (50.0-100.0) ug/mL Laboratory Results - last 24 hr 12/14/17 12/14/17 12/14/17 04:25 04:25 04:25 WBC 8.2 RBC 4.80 Hgb 12.6 Hct 38.6 MCV 80.4 L MCH 26.2 L MCHC 32.5 L RDW 15.9 H Plt Count 185 Sodium 148 Potassium 3.7 Chloride 110 H Carbon Dioxide 22 Anion Gap 20 BUN 2 L Creatinine 0.6 L Est GFR ( Amer) > 60 Est GFR (Non-Af Amer) > 60 Random Glucose 88 Calcium 9.3 Triglycerides 248 H D Cholesterol 241 H LDL Cholesterol Direct 156 H HDL Cholesterol 43 Valproic Acid 48.1 L Fingerstick Blood Sugar Results: 165 Critical Care Progress Note - Nutrition Nutrition: Nutrition Category Date Time Status NPO Diet [DIET] Diets 12/12/17 Dinner Active Assessment/Plan (1) Alcohol withdrawal seizure Current Visit: Yes Status: Acute Priority: High Comment: Continue with ICU care for close observation and serial examination Monitor for withdrawal Ativan 0.5 mg IVP Q6 PRN IV Hydrations Folic acid Thiamine (2) Complex partial epilepsy Current Visit: Yes Status: Acute Priority: High Comment: Valproate Sodium 500 mg IVPB BID PRN Ativan Neurology follow up fall/aspiration/seizure precautions (3) Delirium tremens Current Visit: Yes Status: Acute Priority: High (4) Hypertension Current Visit: Yes Status: Acute Priority: High (5) Alcoholism Current Visit: Yes Status: Acute Priority: High Comment: Banana Bag then Intravenous thiamine and Folate Continue to address alcohol abuse
[2017-12-14] MEDS: EnalaprilAT 1.25 mg/ml Inj IV SCH ×2 (18:23→23:46)
[2017-12-14] MEDS: Potassium Chl 40 mEq in D5-NS 1,000 ML IV SCH (23:46)
[2017-12-15] MEDS: EnalaprilAT 1.25 mg/ml Inj IV SCH ×4 (05:00→21:08)
[2017-12-15 05:56] LABS: BASO % 0.3 % (0.0-2.0); EOS # 0.1 K/uL (0.0-0.7); EOS % 0.7 % (0.0-4.0); HEMOGLOBIN 11.8 g/dL (12.0-16.0); LYMPH # 1.6 K/uL (1.0-4.3); LYMPH % 19.7 % (20.0-40.0); MEAN CELL VOLUME 79.2 fl (81.0-99.0); MEAN CORPUSCULAR HEMOGLOBIN 25.5 pg (27.0-31.0); MEAN CORPUSCULAR HGB CONC 32.2 g/dL (33.0-37.0); MEAN PLATELET VOLUME 9.5 fl (7.2-11.7); MONO # 0.5 K/uL (0.0-0.8); MONO % 5.8 % (0.0-10.0); NEUT % 73.5 % (50.0-75.0); NRBC % 0.1 % (0.0-0.0); RBC 4.61 Mil/uL (3.80-5.20); RED CELL DISTRIBUTION WIDTH 15.7 % (11.5-14.5); WHITE BLOOD COUNT 8.1 K/uL (4.8-10.8)
[2017-12-15 06:31] LABS: BLOOD UREA NITROGEN 3 mg/dl (7-17); CALCIUM 9.2 mg/dL (8.4-10.2); GFR AFRICAN-AMERICAN > 60; GFR NON-AFRICAN AMERICAN > 60
[2017-12-15] MEDS: Enoxaparin 40 mg Syringe SC SCH (08:46)
[2017-12-15] MEDS: Metoprolol Succinate 25 mg XL Tab PO SCH (08:47)
--- NOTE | 2017-12-15 09:47 | CP.PCM.PN ---
<Remi Gusman - Last Filed: 12/15/17 12:44> Subjective - Date & Time of Evaluation Date of Evaluation: 12/15/17 Time of Evaluation: 07:50 - Subjective Subjective: Patient seen and examined this morning at bedside w/ Dr. Davies. Patient agitated overnight and given ativan. Patient remains 1:1 for observation. Objective - Vital Signs/Intake and Output Vital Signs (last 24 hours): Temp Pulse Resp BP Pulse Ox 98.8 F 79 22 106/76 100 12/15/17 08:00 12/15/17 08:47 12/15/17 08:00 12/15/17 08:47 12/15/17 08:00 Intake and Output: 12/15/17 12/15/17 06:59 18:59 Intake Total 660 Output Total 750 Balance -90 - Medications Medications: Current Medications Amlodipine Besylate (Norvasc) 5 mg PO DAILY [facility] Last Admin: 12/15/17 08:47 Dose: Not Given Enalaprilat (Vasotec Iv) 1.25 mg IV Q6 [facility] Last Admin: 12/15/17 05:00 Dose: 1.25 mg Enoxaparin Sodium (Lovenox) 40 mg SC DAILY [facility] PRN Reason: Protocol Last Admin: 12/15/17 08:46 Dose: 40 mg Folic Acid 1 mg/ Sodium (Chloride) 100.2 mls @ 60 mls/hr IVPB DAILY [facility] Last Admin: 12/15/17 08:46 Dose: 60 mls/hr Potassium Chloride/Dextrose/Sod Cl (D5-Ns1l+40meq Kcl) 1,000 mls @ 50 mls/hr IV .Q20H [facility] Stop: 12/15/17 23:10 Last Admin: 12/14/17 23:46 Dose: 50 mls/hr Lorazepam (Ativan) 0.5 mg IVP Q6 PRN PRN Reason: Agitation Last Admin: 12/15/17 08:59 Dose: 0.5 mg Metoprolol Succinate (Toprol Xl) 25 mg PO DAILY [facility] Last Admin: 12/15/17 08:47 Dose: Not Given Nicotine (Nicoderm Cq) 1 patch TD DAILY [facility] Last Admin: 12/15/17 08:46 Dose: 1 patch Thiamine HCl (Vitamin B1 Tab) 100 mg PO DAILY [facility] Last Admin: 12/15/17 08:47 Dose: Not Given Valsartan (Diovan) 160 mg PO DAILY [facility] Last Admin: 12/15/17 08:45 Dose: Not Given - Labs Labs: 12/15/17 04:35 12/15/17 04:35 - Constitutional Appears: Non-toxic, No Acute Distress - Head Exam Head Exam: ATRAUMATIC, NORMAL INSPECTION, NORMOCEPHALIC - Eye Exam Eye Exam: Normal appearance - ENT Exam ENT Exam: Mucous Membranes Moist - Neck Exam Neck Exam: Full ROM. absent: Tenderness - Respiratory Exam Respiratory Exam: Clear to Ausculation Bilateral. absent: Accessory Muscle Use , Decreased Breath Sounds, Rales, Rhonchi, Wheezes, Respiratory Distress - Cardiovascular Exam Cardiovascular Exam: REGULAR RHYTHM. absent: Tachycardia - GI/Abdominal Exam GI & Abdominal Exam: Soft, Normal Bowel Sounds. absent: Distended, Tenderness - Extremities Exam Extremities Exam: absent: Calf Tenderness, Pedal Edema, Tenderness - Neurological Exam Neurological Exam: Alert, Altered, Awake - Skin Skin Exam: Dry, Intact, Normal Color, Warm Assessment and Plan (2) Alcohol withdrawal seizure Status: Acute (3) Transient ischemic attack Status: Acute (4) Alcoholism Status: Chronic (5) Complex partial epilepsy Status: Chronic (6) Hypertension Status: Chronic (7) Alcohol abuse Status: Chronic - Assessment and Plan (Free Text) Plan: c/w present management afebrile, non-tachycardic, normotensive neurology recommendations appreciated c/w IVF D5 NS w/ KCl 40 meq @ 50 mL/h BP control: norvasc 5 mg PO daily, vasotec 1.25 mg IV Q6h, metoprolol succinate 25 mg PO daily, valsartan 160 mg PO daily c/w ativan 0.5 mg IV Q6h prn for agitation c/w folic acid IV 1 mg daily c/w vitamine B1 100 mg PO daily f/u bedside EEG maintain 1:1 maintain NPO prophylactic measures: DVT lovenox 40 mg SC daily monitor for alcohol withdrawal monitor for acute changes medically stable for transfer to [facility] <Mani Davies - Last Filed: 12/21/17 23:55> Objective - Vital Signs/Intake and Output Vital Signs (last 24 hours): Temp Pulse Resp BP Pulse Ox 98.3 F 90 20 125/80 96 12/18/17 22:49 12/18/17 22:49 12/18/17 22:49 12/18/17 22:49 12/18/17 22:49 - Labs Labs: 12/16/17 09:35 12/16/17 09:35 Assessment and Plan (1) Transient ischemic attack Status: Acute (2) Altered mental status, unspecified Status: Acute (3) Complex partial epilepsy Status: Chronic (4) Visual hallucination Status: Acute (5) Alcoholism Status: Chronic (6) Hypertension Status: Acute (7) Psychosis Status: Acute (8) Depression Status: Acute (9) Alcohol withdrawal seizure Status: Acute - Assessment and Plan (Free Text) Plan: I was present during evaluation and discussed with Dr Gusman re plans of care and mgt. Mani Davies M.D.
--- NOTE | 2017-12-15 11:32 | CP.CCUPN ---
CCU Subjective - Physician Review Subjective (Free Text): 12/15/17 11:32 The patient was Seen/interviewed and examined by me at the bedside during ICU round, Medical records reviewed and Management issues were discussed and formulated with the house staff. Events reviewed Awake, confused. Comfortable, NAD Seizure free, Scheduled for EEG and MRI On 1:1 constant observations Discussed with daughter diagnosis, treatment plans and alternatives Remains NPO, on IV Fluids with D5-Ns1l+40meq Potassium Chl @ 50 mL/H CCU Objective - Vital Signs / Intake & Output Vital Signs (Last 4 hours): Vital Signs Temp Pulse Resp BP Pulse Ox 12/15/17 10:00 89 15 127/92 H 100 12/15/17 09:05 111/79 12/15/17 08:47 79 106/76 12/15/17 08:00 98.8 F 85 22 106/76 100 Intake and Output (Last 8hrs): Intake & Output 12/14/17 12/15/17 12/15/17 22:59 06:59 14:59 Intake Total 440 420 200 Output Total 1000 750 Balance -560 -330 200 Intake: IV 440 420 200 Output: Urine 1000 750 Urethral (Odom) 1000 750 - Physical Exam Head: Positive for: Atraumatic, Normocephalic Pupils: Positive for: PERRL Conjunctiva: Positive for: Normal Mouth: Positive for: Moist Mucous Membranes Nose (External): Positive for: Atraumatic Neck: Positive for: Normal Range of Motion Respiratory/Chest: Positive for: Clear to Auscultation Cardiovascular: Positive for: Regular Rate and Rhythm Abdomen: Positive for: Normal Bowel Sounds Upper Extremity: Positive for: Normal Inspection Lower Extremity: Positive for: Normal Inspection Neurological: Positive for: Other (lethergic) - Medications Active Medications: Active Medications Generic Name Dose Route Start Last Admin Trade Name Freq PRN Reason Stop Dose Admin Amlodipine Besylate 5 mg 12/14/17 09:00 12/15/17 08:47 Norvasc PO Not Given DAILY [facility] Enalaprilat 1.25 mg 12/14/17 16:00 12/15/17 09:05 Vasotec Iv IV Not Given Q6 [facility] Enoxaparin Sodium 40 mg 12/13/17 09:00 12/15/17 08:46 Lovenox SC 40 mg DAILY [facility] Administration Protocol Folic Acid 1 mg/ Sodium 100.2 mls @ 60 mls/hr 12/15/17 09:00 12/15/17 08:46 Chloride IVPB 60 mls/hr DAILY JONNIE Administration Potassium Chloride/Dextrose/Sod Cl 1,000 mls @ 50 mls/hr 12/14/17 23:15 12/14 23:46 D5-Ns1l+40meq Kcl IV 12/15/17 23:10 50 mls/hr .Q20H JONNIE Administration Lorazepam 0.5 mg 12/13/17 13:23 12/15/17 08:59 Ativan IVP 0.5 mg Q6 PRN Administration Agitation Metoprolol Succinate 25 mg 12/14/17 09:00 12/15/17 08:47 Toprol Xl PO Not Given DAILY JONNIE Nicotine 1 patch 12/13/17 12:45 12/15/17 08:46 Nicoderm Cq TD 1 patch DAILY [facility] Administration Thiamine HCl 100 mg 12/15/17 09:00 12/15/17 08:47 Vitamin B1 Tab PO Not Given DAILY JONNIE Valsartan 160 mg 12/14/17 09:00 12/15/17 08:45 Diovan PO Not Given DAILY JONNIE - Patient Studies Lab Studies: Microbiology Studies 12/12/17 22:50 Urine Culture - Final Urine,Clean Catch Escherichia Coli 12/12/17 10:00 MRSA Culture (Admit) - Final Naris MRSA NOT DETECTED Lab Studies 12/15/17 12/15/17 Range/Units 04:35 04:35 WBC 8.1 (4.8-10.8) K/uL RBC 4.61 (3.80-5.20) Mil/uL Hgb 11.8 L (12.0-16.0) g/dL Hct 36.5 (34.0-47.0) % MCV 79.2 L (81.0-99.0) fl MCH 25.5 L (27.0-31.0) pg MCHC 32.2 L (33.0-37.0) g/dL RDW 15.7 H (11.5-14.5) % Plt Count 179 (130-400) K/uL MPV 9.5 (7.2-11.7) fl Neut % (Auto) 73.5 (50.0-75.0) % Lymph % (Auto) 19.7 L (20.0-40.0) % Gem % (Auto) 5.8 (0.0-10.0) % Eos % (Auto) 0.7 (0.0-4.0) % Baso % (Auto) 0.3 (0.0-2.0) % Neut # (Auto) 6.0 (1.8-7.0) K/uL Lymph # (Auto) 1.6 (1.0-4.3) K/uL Gem # (Auto) 0.5 (0.0-0.8) K/uL Eos # (Auto) 0.1 (0.0-0.7) K/uL Baso # (Auto) 0.0 (0.0-0.2) K/uL Sodium 143 (132-148) mmol/l Potassium 3.7 (3.6-5.0) MMOL/L Chloride 110 H (98-107) mmol/L Carbon Dioxide 21 L (22-30) mmol/L Anion Gap 16 (10-20) BUN 3 L (7-17) mg/dl Creatinine 0.6 L (0.7-1.2) mg/dl Est GFR ( Amer) > 60 Est GFR (Non-Af Amer) > 60 Random Glucose 100 (65-105) mg/dL Calcium 9.2 (8.4-10.2) mg/dL Laboratory Results - last 24 hr 12/15/17 12/15/17 04:35 04:35 WBC 8.1 RBC 4.61 Hgb 11.8 L Hct 36.5 MCV 79.2 L MCH 25.5 L MCHC 32.2 L RDW 15.7 H Plt Count 179 MPV 9.5 Neut % (Auto) 73.5 Lymph % (Auto) 19.7 L Gem % (Auto) 5.8 Eos % (Auto) 0.7 Baso % (Auto) 0.3 Neut # (Auto) 6.0 Lymph # (Auto) 1.6 Gem # (Auto) 0.5 Eos # (Auto) 0.1 Baso # (Auto) 0.0 Sodium 143 Potassium 3.7 Chloride 110 H Carbon Dioxide 21 L Anion Gap 16 BUN 3 L Creatinine 0.6 L Est GFR ( Amer) > 60 Est GFR (Non-Af Amer) > 60 Random Glucose 100 Calcium 9.2 Fingerstick Blood Sugar Results: 165 Critical Care Progress Note - Nutrition Nutrition: Nutrition Category Date Time Status NPO Diet [DIET] Diets 12/12/17 Dinner Active Assessment/Plan (1) Alcohol withdrawal seizure Current Visit: Yes Status: Acute Priority: High Comment: Continue with care current mangement Monitor for withdrawal Ativan 0.5 mg IVP Q6 PRN IV Hydrations Folic acid Thiamine (2) Complex partial epilepsy Current Visit: Yes Status: Chronic Priority: High Comment: Valproate Sodium 500 mg IVPB BID PRN Ativan Neurology follow up fall/aspiration/seizure precautions (3) Delirium tremens Current Visit: Yes Status: Acute Priority: High (4) Hypertension Current Visit: Yes Status: Acute Priority: High (5) Alcoholism Current Visit: Yes Status: Chronic Priority: High Comment: Banana Bag then Intravenous thiamine and Folate Continue to address alcohol abuse
[2017-12-15] MEDS: Potassium Chl 40 mEq in D5-NS 1,000 ML IV SCH (21:08)
[2017-12-16] MEDS: EnalaprilAT 1.25 mg/ml Inj IV SCH ×2 (04:43→09:50)
--- NOTE | 2017-12-16 08:26 | CP.PCM.PN ---
<Remi Gusman - Last Filed: 12/16/17 11:28> Subjective - Date & Time of Evaluation Date of Evaluation: 12/16/17 Time of Evaluation: 09:07 - Subjective Subjective: Patient seen and examined this morning at bedside w/ Dr. Davies. Patient agitated last night and given ativan. Patient remains 1:1 for observation. Objective - Vital Signs/Intake and Output Vital Signs (last 24 hours): Temp Pulse Resp BP Pulse Ox 99.2 F 85 25 H 127/88 97 12/16/17 08:00 12/16/17 08:00 12/16/17 08:00 12/16/17 08:00 12/16/17 08:00 Intake and Output: 12/16/17 12/16/17 06:59 18:59 Intake Total 600 50 Output Total 550 Balance 50 50 - Medications Medications: Current Medications Amlodipine Besylate (Norvasc) 5 mg PO DAILY [facility] Last Admin: 12/15/17 08:47 Dose: Not Given Enalaprilat (Vasotec Iv) 1.25 mg IV Q6 [facility] Last Admin: 12/16/17 04:43 Dose: 1.25 mg Enoxaparin Sodium (Lovenox) 40 mg SC DAILY [facility] PRN Reason: Protocol Last Admin: 12/15/17 08:46 Dose: 40 mg Folic Acid 1 mg/ Sodium (Chloride) 100.2 mls @ 60 mls/hr IVPB DAILY [facility] Last Admin: 12/15/17 08:46 Dose: 60 mls/hr Lorazepam (Ativan) 0.5 mg IVP Q6 PRN PRN Reason: Agitation Last Admin: 12/15/17 17:38 Dose: 0.5 mg Metoprolol Succinate (Toprol Xl) 25 mg PO DAILY [facility] Last Admin: 12/15/17 08:47 Dose: Not Given Nicotine (Nicoderm Cq) 1 patch TD DAILY [facility] Last Admin: 12/15/17 08:46 Dose: 1 patch Thiamine HCl (Vitamin B1 Tab) 100 mg PO DAILY [facility] Last Admin: 12/15/17 08:47 Dose: Not Given Valsartan (Diovan) 160 mg PO DAILY [facility] Last Admin: 12/15/17 08:45 Dose: Not Given - Labs Labs: 12/15/17 04:35 12/15/17 04:35 - Constitutional Appears: Non-toxic, No Acute Distress - Head Exam Head Exam: ATRAUMATIC, NORMAL INSPECTION, NORMOCEPHALIC - Eye Exam Eye Exam: Normal appearance - ENT Exam ENT Exam: Mucous Membranes Moist - Neck Exam Neck Exam: Full ROM. absent: Tenderness - Respiratory Exam Respiratory Exam: Clear to Ausculation Bilateral. absent: Accessory Muscle Use , Decreased Breath Sounds, Rales, Rhonchi, Wheezes, Respiratory Distress - Cardiovascular Exam Cardiovascular Exam: REGULAR RHYTHM. absent: Tachycardia - GI/Abdominal Exam GI & Abdominal Exam: Soft, Normal Bowel Sounds. absent: Distended, Tenderness - Extremities Exam Extremities Exam: absent: Calf Tenderness, Pedal Edema, Tenderness - Neurological Exam Neurological Exam: Altered - Skin Skin Exam: Dry, Intact, Normal Color, Warm Assessment and Plan (1) Wernickes encephalopathy Status: Acute (2) Alcohol withdrawal seizure Status: Acute (3) Transient ischemic attack Status: Acute (4) Alcoholism Status: Chronic (5) Complex partial epilepsy Status: Chronic (6) Hypertension Status: Chronic (7) Alcohol abuse Status: Chronic - Assessment and Plan (Free Text) Plan: c/w present management afebrile, non-tachycardic, normotensive neurology recommendations appreciated CBC: 7.5>11.6/36.0<194 BMP: 143/4.1, 113/19, 6/0.6, glucose 105 BP control: norvasc 5 mg PO daily, vasotec 1.25 mg IV Q6h, metoprolol succinate 25 mg PO daily, valsartan 160 mg PO daily c/w ativan 0.5 mg IV Q6h prn for agitation c/w folic acid IV 1 mg daily c/w vitamine B1 100 mg PO daily f/u bedside EEG maintain 1:1 maintain NPO until assessed by speech/swallow prophylactic measures: DVT lovenox 40 mg SC daily monitor for alcohol withdrawal monitor for acute changes speech/swallow eval ordered PT/OT eval ordered medically stable for transfer to [facility] <Mani Davies - Last Filed: 12/21/17 23:56> Objective - Vital Signs/Intake and Output Vital Signs (last 24 hours): Temp Pulse Resp BP Pulse Ox 98.3 F 90 20 125/80 96 12/18/17 22:49 12/18/17 22:49 12/18/17 22:49 12/18/17 22:49 12/18/17 22:49 - Labs Labs: 12/16/17 09:35 12/16/17 09:35 Assessment and Plan (1) Transient ischemic attack Status: Acute (2) Altered mental status, unspecified Status: Acute (3) Complex partial epilepsy Status: Chronic (4) Visual hallucination Status: Acute (5) Alcoholism Status: Chronic (6) Hypertension Status: Acute (7) Psychosis Status: Acute (8) Depression Status: Acute (9) Alcohol withdrawal seizure Status: Acute - Assessment and Plan (Free Text) Plan: I was present during evaluation and discussed with Dr Naseem castrejon plans of care and tx. Mani Davies M.D.
[2017-12-16] MEDS: Enoxaparin 40 mg Syringe SC SCH (08:27)
[2017-12-16 09:52] LABS: HEMOGLOBIN 11.6 g/dL (12.0-16.0); MEAN CELL VOLUME 78.9 fl (81.0-99.0); MEAN CORPUSCULAR HEMOGLOBIN 25.5 pg (27.0-31.0); MEAN CORPUSCULAR HGB CONC 32.3 g/dL (33.0-37.0); RBC 4.57 Mil/uL (3.80-5.20); RED CELL DISTRIBUTION WIDTH 15.7 % (11.5-14.5); WHITE BLOOD COUNT 7.5 K/uL (4.8-10.8)
[2017-12-16] MEDS: Metoprolol Succinate 25 mg XL Tab PO SCH ×2 (09:52→22:09)
--- NOTE | 2017-12-16 10:18 | CP.PCM.PN ---
Subjective - Date & Time of Evaluation Date of Evaluation: 12/16/17 Time of Evaluation: 10:12 - Subjective Subjective: Ms. Terry Santoro was seen and examined at the bedside in ICU. She is confused, restless. She attempts to climb out of her bed, remains on 1:1 sitter for patient safety.She is able to move all extremities spontaneously, but unable to follow commands. She mumbles words that are incomprehensible.Her blood pressure is elevated, labetalol was administered. Spoke with patients' daughter regarding patient's hx of cerebral clipping. She is able to provide patient's neurosurgeon ( Dr. Herb Quintanilla tel. [phone]), awaiting neurosurgeon post- op note regarding the material of cerebral clipping.Called Dr. Quintanilla's office to provide the information. She had episode of agitation and restlessness last night, which ativan was given. Objective - Vital Signs/Intake and Output Vital Signs (last 24 hours): Temp Pulse Resp BP Pulse Ox 99.2 F 85 25 H 132/93 H 97 12/16/17 08:00 12/16/17 08:00 12/16/17 08:00 12/16/17 09:50 12/16/17 08:00 Intake and Output: 12/16/17 12/16/17 06:59 18:59 Intake Total 600 50 Output Total 550 Balance 50 50 - Medications Medications: Current Medications Amlodipine Besylate (Norvasc) 5 mg PO DAILY [facility] Last Admin: 12/16/17 09:51 Dose: Not Given Enalaprilat (Vasotec Iv) 1.25 mg IV Q6 [facility] Last Admin: 12/16/17 09:50 Dose: 1.25 mg Enoxaparin Sodium (Lovenox) 40 mg SC DAILY [facility] PRN Reason: Protocol Last Admin: 12/16/17 08:27 Dose: 40 mg Folic Acid 1 mg/ Sodium (Chloride) 100.2 mls @ 60 mls/hr IVPB DAILY [facility] Last Admin: 12/16/17 08:27 Dose: 60 mls/hr Valproate Sodium 750 mg/ (Sodium Chloride) 107.5 mls @ 0 mls/hr IVPB Q12 [facility] PRN Reason: As Directed Lorazepam (Ativan) 0.5 mg IVP Q6 PRN PRN Reason: Agitation Last Admin: 12/15/17 17:38 Dose: 0.5 mg Metoprolol Succinate (Toprol Xl) 25 mg PO DAILY [facility] Last Admin: 12/16/17 09:52 Dose: Not Given Nicotine (Nicoderm Cq) 1 patch TD DAILY [facility] Last Admin: 12/15/17 08:46 Dose: 1 patch Thiamine HCl (Vitamin B1 Tab) 100 mg PO DAILY [facility] Last Admin: 12/16/17 09:52 Dose: Not Given Valsartan (Diovan) 160 mg PO DAILY [facility] Last Admin: 12/16/17 09:51 Dose: Not Given - Labs Labs: 12/16/17 09:35 12/15/17 04:35 - Constitutional Appears: No Acute Distress - Head Exam Head Exam: NORMAL INSPECTION - Neurological Exam Neuro motor strength exam: Left Upper Extremity: 4, Right Upper Extremity: 4, Left Lower Extremity: 4, Right Lower Extremity: 4 Additional comments: Confused, restless, unable to follow simple commands. Assessment and Plan (1) Alcohol withdrawal seizure Assessment & Plan: Case discussed with DR. Michel, continue all current medical regimen. Recommend depakote 750 mg IV Q 12. Pending EEG result. Recommend MRI of the brain pending confirmation from DR. Quintanilla's post op note. Status: Acute
[2017-12-16 10:31] LABS: BLOOD UREA NITROGEN 6 mg/dl (7-17); CALCIUM 9.4 mg/dL (8.4-10.2); GFR AFRICAN-AMERICAN > 60; GFR NON-AFRICAN AMERICAN > 60
[2017-12-16] MEDS: Valproate 750 MG in Sodium Chloride 0.9% 100 ML IVPB SCH ×2 (11:14→21:44)
--- NOTE | 2017-12-17 08:22 | CP.PCM.PN ---
<Remi Gusman - Last Filed: 12/17/17 11:55> Subjective - Date & Time of Evaluation Date of Evaluation: 12/17/17 Time of Evaluation: 10:25 - Subjective Subjective: Patient seen and examined this morning at bedside w/ Dr. Davies. There are no acute events overnight, NAD. The patient is sitting in chair comfortably. The patient is AAOx3 and feeling better. Patient has no recollection of seizure episodes. The patient has no complaints, denies headaches, chest pain, SOB, abdominal pain, nausea, vomiting, diarrhea, dysuria, or fever. Objective - Vital Signs/Intake and Output Vital Signs (last 24 hours): Temp Pulse Resp BP Pulse Ox 98.8 F 84 20 130/86 96 12/16/17 23:56 12/17/17 05:00 12/17/17 05:00 12/17/17 05:00 12/17/17 05:00 Intake and Output: 12/17/17 12/17/17 06:59 18:59 Intake Total 240 Output Total 450 Balance -210 - Medications Medications: Current Medications Acetaminophen (Tylenol 650 Mg Supp) 650 mg MS ONCE PRN PRN Reason: Fever >100.4 F Last Admin: 12/16/17 12:35 Dose: 650 mg Amlodipine Besylate (Norvasc) 5 mg PO DAILY [facility] Last Admin: 12/16/17 09:51 Dose: Not Given Enoxaparin Sodium (Lovenox) 40 mg SC DAILY [facility] PRN Reason: Protocol Last Admin: 12/16/17 08:27 Dose: 40 mg Folic Acid 1 mg/ Sodium (Chloride) 100.2 mls @ 60 mls/hr IVPB DAILY [facility] Last Admin: 12/16/17 08:27 Dose: 60 mls/hr Valproate Sodium 750 mg/ (Sodium Chloride) 107.5 mls @ 0 mls/hr IVPB Q12 [facility] PRN Reason: As Directed Last Admin: 12/16/17 21:44 Dose: 750 mls/hr Lorazepam (Ativan) 0.5 mg IVP Q6 PRN PRN Reason: Agitation Last Admin: 12/15/17 17:38 Dose: 0.5 mg Metoprolol Succinate (Toprol Xl) 25 mg PO DAILY [facility] Last Admin: 12/16/17 22:09 Dose: 25 mg Nicotine (Nicoderm Cq) 1 patch TD DAILY [facility] Last Admin: 12/16/17 11:51 Dose: 1 patch Thiamine HCl (Vitamin B1 Tab) 100 mg PO DAILY [facility] Last Admin: 12/16/17 09:52 Dose: Not Given Valsartan (Diovan) 160 mg PO DAILY [facility] Last Admin: 12/16/17 09:51 Dose: Not Given - Labs Labs: 12/16/17 09:35 12/16/17 09:35 - Constitutional Appears: Non-toxic, No Acute Distress - Head Exam Head Exam: NORMOCEPHALIC Additional comments: has vpl shunt on right parietal region - Eye Exam Eye Exam: Normal appearance - ENT Exam ENT Exam: Mucous Membranes Moist - Neck Exam Neck Exam: Full ROM. absent: Tenderness - Respiratory Exam Respiratory Exam: Clear to Ausculation Bilateral. absent: Accessory Muscle Use , Decreased Breath Sounds, Rales, Rhonchi, Wheezes, Respiratory Distress - Cardiovascular Exam Cardiovascular Exam: REGULAR RHYTHM. absent: Tachycardia - GI/Abdominal Exam GI & Abdominal Exam: Soft, Normal Bowel Sounds. absent: Distended, Tenderness - Extremities Exam Extremities Exam: absent: Calf Tenderness, Pedal Edema, Tenderness - Neurological Exam Neurological Exam: Alert, Awake, Oriented x3 - Skin Skin Exam: Dry, Intact, Normal Color, Warm Assessment and Plan (1) Wernickes encephalopathy Status: Acute (2) Alcohol withdrawal seizure Status: Acute (3) Transient ischemic attack Status: Acute (4) Alcoholism Status: Chronic (5) Complex partial epilepsy Status: Chronic (6) Hypertension Status: Chronic (7) Alcohol abuse Status: Chronic - Assessment and Plan (Free Text) Plan: c/w present management afebrile, non-tachycardic, normotensive neurology recommendations appreciated speech/swallow recommendations appreciated PT/OT recommendations appreciated CBC: 7.5>11.6/36.0<194 BMP: 143/4.1, 113/19, 6/0.6, glucose 105 bedside EEG: showed encephalopathy BP control: norvasc 5 mg PO daily, metoprolol succinate 25 mg PO daily, valsartan 160 mg PO daily c/w ativan 0.5 mg IV Q6h prn for agitation start depaken cap 750 mg PO Q12h c/w folic acid 1 mg PO daily c/w vitamin B1 100 mg PO daily f/u MRI brain w/wo contrast maintain 1:1 diet: bite sized, thin liquids prophylactic measures: DVT lovenox 40 mg SC daily monitor for alcohol withdrawal monitor for acute changes dispo pending DC to subacute rehab <Mani Davies - Last Filed: 12/21/17 23:57> Objective - Vital Signs/Intake and Output Vital Signs (last 24 hours): Temp Pulse Resp BP Pulse Ox 98.3 F 90 20 125/80 96 12/18/17 22:49 12/18/17 22:49 12/18/17 22:49 12/18/17 22:49 12/18/17 22:49 - Labs Labs: 12/16/17 09:35 12/16/17 09:35 Assessment and Plan (1) Transient ischemic attack Status: Acute (2) Altered mental status, unspecified Status: Acute (3) Complex partial epilepsy Status: Chronic (4) Visual hallucination Status: Acute (5) Alcoholism Status: Chronic (6) Hypertension Status: Acute (7) Psychosis Status: Acute (8) Depression Status: Acute (9) Alcohol withdrawal seizure Status: Acute - Assessment and Plan (Free Text) Plan: I was present during evaluation and discussed with Dr Gusman re plans of care and mgt. Mani Davies M.D.
[2017-12-17] MEDS: Valproate 750 MG in Sodium Chloride 0.9% 100 ML IVPB SCH (08:43)
[2017-12-17] MEDS: Enoxaparin 40 mg Syringe SC SCH (08:44)
[2017-12-17] MEDS: Metoprolol Succinate 25 mg XL Tab PO SCH (08:45)
--- NOTE | 2017-12-17 08:45 | EEG ---
DATE: Please note that this is an EEG that was by using the placement 16 electrodes, using 10-[employer] systems. All electrodes were reference to A1/A2 and P1/P2 respectively. Continuous seizure monitoring was done using spike-wave detection. GENERAL DESCRIPTION: There is a low amplitude posterior dominant rhythm, which is approximately 6 to 7 Hz theta alpha admixture. There is continuous left frontotemporal . At times, there is a normal rhythm capture, but this is not for the majority of the record. There is no sleep captured. There are no clinical or subclinical seizures. IMPRESSION: This is an abnormal awake and drowsy electroencephalogram with presence of left frontotemporal slowing indicates a focal lesion or postictal slowing, low amplitude posterior dominant rhythm indicates encephalopathy. Clinical correlation is required. Julia Larios MD
--- NOTE | 2017-12-17 11:37 | CP.PCM.PN ---
Subjective - Date & Time of Evaluation Date of Evaluation: 12/17/17 Time of Evaluation: 11:34 - Subjective Subjective: Ms. Terry Santoro was seen and examined at the bedside. She is alert, oriented in all spheres. 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 She denies any headache, dizziness, lightheadedness, nausea, or vomiting. She is able to follow simple commands and ambulates with minimal assistance in steady gait. Dr. Quintanilla's office post op note showed coil embolization done. She is on 1:1 sitter but will be discontinued. There was no untoward events overnight. Objective - Vital Signs/Intake and Output Vital Signs (last 24 hours): Temp Pulse Resp BP Pulse Ox 98.6 F 75 18 135/88 98 12/17/17 08:27 12/17/17 08:45 12/17/17 08:27 12/17/17 08:45 12/17/17 08:27 Intake and Output: 12/17/17 12/17/17 06:59 18:59 Intake Total 240 Output Total 450 Balance -210 - Medications Medications: Current Medications Acetaminophen (Tylenol 650 Mg Supp) 650 mg [place] ONCE PRN PRN Reason: Fever >100.4 F Last Admin: 12/16/17 12:35 Dose: 650 mg Amlodipine Besylate (Norvasc) 5 mg PO DAILY [facility] Last Admin: 12/17/17 08:45 Dose: 5 mg Enoxaparin Sodium (Lovenox) 40 mg SC DAILY [facility] PRN Reason: Protocol Last Admin: 12/17/17 08:44 Dose: 40 mg Folic Acid (Folic Acid) 1 mg PO DAILY [facility] Lorazepam (Ativan) 0.5 mg IVP Q6 PRN PRN Reason: Agitation Last Admin: 12/15/17 17:38 Dose: 0.5 mg Metoprolol Succinate (Toprol Xl) 25 mg PO DAILY [facility] Last Admin: 12/17/17 08:45 Dose: 25 mg Nicotine (Nicoderm Cq) 1 patch TD DAILY [facility] Last Admin: 12/17/17 08:45 Dose: 1 patch Quetiapine Fumarate (Seroquel) 25 mg PO ONCE ONE Stop: 12/17/17 12:01 Thiamine HCl (Vitamin B1 Tab) 100 mg PO DAILY [facility] Last Admin: 12/17/17 08:46 Dose: 100 mg Valproate Sodium (Depakene Cap) 750 mg PO Q12 [facility] Valsartan (Diovan) 160 mg PO DAILY [facility] Last Admin: 12/17/17 08:44 Dose: 160 mg - Labs Labs: 12/16/17 09:35 12/16/17 09:35 - Constitutional Appears: No Acute Distress - Head Exam Head Exam: NORMAL INSPECTION - Neurological Exam Neurological Exam: Alert, Awake, Oriented x3 Neuro motor strength exam: Left Upper Extremity: 4, Right Upper Extremity: 4, Left Lower Extremity: 4, Right Lower Extremity: 4 Additional comments: Neurological improved from previous examination. She is alert, oriented in all spheres. Assessment and Plan (1) Alcohol withdrawal seizure Assessment & Plan: Case discussed with Dr. Michel, continue all current medical, physical therapies. Recommend MRI of the brain with and without contrast to evaluate any new cerebral aneurym. If MRI is normal, may discharge patient to a subacute rehab. Status: Acute
--- NOTE | 2017-12-17 12:35 | RAD ---
HISTORY: cough COMPARISON: Portable chest 12/12/2017. TECHNIQUE: Chest PA and lateral FINDINGS: LUNGS: Trace patchy airspace disease not excluded the right base with none on the left once again. PLEURA: Minimal right pleural effusion difficult to exclude in the interval. No pneumothorax apparent right ventriculo pleural catheter unchanged in position. CARDIOVASCULAR: Normal. OSSEOUS STRUCTURES: No significant abnormalities. VISUALIZED UPPER ABDOMEN: Prior cholecystectomy changes again evident right upper quadrant. OTHER FINDINGS: None. IMPRESSION: Trace right pleural effusion is not excluded as well as limited right basilar airspace disease with a left chest clear. Ventriculopleural shunt unchanged.
--- NOTE | 2017-12-18 08:06 | CP.PCM.PN ---
<Remi Mcelroy - Last Filed: 12/18/17 12:09> Subjective - Date & Time of Evaluation Date of Evaluation: 12/18/17 Time of Evaluation: 07:55 - Subjective Subjective: Patient seen and examined this morning at bedside w/ Dr. Davies. There are no acute events overnight, NAD. The patient is sitting in chair comfortably. The patient is AAOx3 and feeling better. The patient has no complaints, denies headaches, chest pain, SOB, abdominal pain, nausea, vomiting, diarrhea, dysuria , or fever. Objective - Vital Signs/Intake and Output Vital Signs (last 24 hours): Temp Pulse Resp BP Pulse Ox 98.6 F 80 18 132/90 95 12/17/17 23:24 12/17/17 23:24 12/17/17 23:24 12/17/17 23:24 12/17/17 23:24 - Medications Medications: Current Medications Acetaminophen (Tylenol 650 Mg Supp) 650 mg OR ONCE PRN PRN Reason: Fever >100.4 F Last Admin: 12/16/17 12:35 Dose: 650 mg Amlodipine Besylate (Norvasc) 5 mg PO DAILY [facility] Last Admin: 12/17/17 08:45 Dose: 5 mg Enoxaparin Sodium (Lovenox) 40 mg SC DAILY [facility] PRN Reason: Protocol Last Admin: 12/17/17 08:44 Dose: 40 mg Folic Acid (Folic Acid) 1 mg PO DAILY [facility] Last Admin: 12/17/17 16:23 Dose: 1 mg Lorazepam (Ativan) 0.5 mg IVP Q6 PRN PRN Reason: Agitation Last Admin: 12/15/17 17:38 Dose: 0.5 mg Metoprolol Succinate (Toprol Xl) 25 mg PO DAILY [facility] Last Admin: 12/17/17 08:45 Dose: 25 mg Nicotine (Nicoderm Cq) 1 patch TD DAILY [facility] Last Admin: 12/17/17 08:45 Dose: 1 patch Thiamine HCl (Vitamin B1 Tab) 100 mg PO DAILY [facility] Last Admin: 12/17/17 08:46 Dose: 100 mg Valproate Sodium (Depakene Cap) 750 mg PO Q12 [facility] Last Admin: 12/17/17 21:40 Dose: 750 mg Valsartan (Diovan) 160 mg PO DAILY [facility] Last Admin: 12/17/17 08:44 Dose: 160 mg - Labs Labs: 12/16/17 09:35 12/16/17 09:35 - Constitutional Appears: Non-toxic, No Acute Distress - Head Exam Head Exam: ATRAUMATIC, NORMAL INSPECTION, NORMOCEPHALIC - Eye Exam Eye Exam: Normal appearance - ENT Exam ENT Exam: Mucous Membranes Moist - Neck Exam Neck Exam: Full ROM. absent: Tenderness - Respiratory Exam Respiratory Exam: Clear to Ausculation Bilateral. absent: Accessory Muscle Use , Decreased Breath Sounds, Rales, Rhonchi, Wheezes, Respiratory Distress - Cardiovascular Exam Cardiovascular Exam: REGULAR RHYTHM. absent: Tachycardia - GI/Abdominal Exam GI & Abdominal Exam: Soft, Normal Bowel Sounds. absent: Distended, Tenderness - Extremities Exam Extremities Exam: absent: Calf Tenderness, Pedal Edema, Tenderness - Neurological Exam Neurological Exam: Alert, Awake, Oriented x3 - Skin Skin Exam: Dry, Intact, Normal Color, Warm Assessment and Plan (1) Wernickes encephalopathy Status: Acute (2) Alcohol withdrawal seizure Status: Acute (3) Transient ischemic attack Status: Acute (4) Alcoholism Status: Chronic (5) Complex partial epilepsy Status: Chronic (6) Hypertension Status: Chronic (7) Alcohol abuse Status: Chronic - Assessment and Plan (Free Text) Plan: c/w present management afebrile, non-tachycardic, normotensive neurology recommendations appreciated speech/swallow recommendations appreciated PT/OT recommendations appreciated bedside EEG: showed encephalopathy BP control: norvasc 5 mg PO daily, metoprolol succinate 25 mg PO daily, valsartan 160 mg PO daily c/w ativan 0.5 mg IV Q6h prn for agitation depakene cap 500 mg PO Q12h c/w folic acid 1 mg PO daily c/w vitamin B1 100 mg PO daily f/u MRI brain w/wo contrast diet: bite sized, thin liquids prophylactic measures: DVT lovenox 40 mg SC daily monitor for alcohol withdrawal monitor for acute changes dispo pending DC to subacute rehab <Mani Davies - Last Filed: 12/21/17 23:59> Objective - Vital Signs/Intake and Output Vital Signs (last 24 hours): Temp Pulse Resp BP Pulse Ox 98.3 F 90 20 125/80 96 12/18/17 22:49 12/18/17 22:49 12/18/17 22:49 12/18/17 22:49 12/18/17 22:49 - Labs Labs: 12/16/17 09:35 12/16/17 09:35 Assessment and Plan (1) Transient ischemic attack Status: Acute (2) Altered mental status, unspecified Status: Acute (3) Complex partial epilepsy Status: Chronic (4) Visual hallucination Status: Acute (5) Alcoholism Status: Chronic (6) Hypertension Status: Acute (7) Psychosis Status: Acute (8) Depression Status: Acute (9) Alcohol withdrawal seizure Status: Acute - Assessment and Plan (Free Text) Plan: I was present during evaluation and dicussed with Dr mcelroy re Discharge Plans will discharge patient to subacute rehab. Mani Davies M.D.
[2017-12-18 08:17] VITALS: RESP 20
--- NOTE | 2017-12-18 08:30 | CP.PCM.PN ---
Subjective - Date & Time of Evaluation Date of Evaluation: 12/18/17 Time of Evaluation: 08:30 - Subjective Subjective: Ms. Terry Santoro was seen and examined at the bedside. She is alert, oriented in all spheres. She denies any headache, dizziness, lightheadedness, nausea, or vomiting. She is able to follow simple commands and ambulates with minimal assistance in steady gait. She is on telesitter for patient safety. Valproic Acid level 107.5.There was no untoward events overnight. Objective - Vital Signs/Intake and Output Vital Signs (last 24 hours): Temp Pulse Resp BP Pulse Ox 98.3 F 81 20 125/81 98 12/18/17 08:17 12/18/17 08:17 12/18/17 08:17 12/18/17 08:17 12/18/17 08:17 - Medications Medications: Current Medications Acetaminophen (Tylenol 650 Mg Supp) 650 mg [place] ONCE PRN PRN Reason: Fever >100.4 F Last Admin: 12/16/17 12:35 Dose: 650 mg Amlodipine Besylate (Norvasc) 5 mg PO DAILY [facility] Last Admin: 12/17/17 08:45 Dose: 5 mg Enoxaparin Sodium (Lovenox) 40 mg SC DAILY [facility] PRN Reason: Protocol Last Admin: 12/17/17 08:44 Dose: 40 mg Folic Acid (Folic Acid) 1 mg PO DAILY [facility] Last Admin: 12/17/17 16:23 Dose: 1 mg Lorazepam (Ativan) 0.5 mg IVP Q6 PRN PRN Reason: Agitation Last Admin: 12/15/17 17:38 Dose: 0.5 mg Metoprolol Succinate (Toprol Xl) 25 mg PO DAILY [facility] Last Admin: 12/17/17 08:45 Dose: 25 mg Nicotine (Nicoderm Cq) 1 patch TD DAILY [facility] Last Admin: 12/17/17 08:45 Dose: 1 patch Thiamine HCl (Vitamin B1 Tab) 100 mg PO DAILY [facility] Last Admin: 12/17/17 08:46 Dose: 100 mg Valsartan (Diovan) 160 mg PO DAILY [facility] Last Admin: 12/17/17 08:44 Dose: 160 mg - Labs Labs: 12/16/17 09:35 12/16/17 09:35 - Constitutional Appears: No Acute Distress - Head Exam Head Exam: NORMAL INSPECTION - Neurological Exam Neurological Exam: Alert, Awake, Oriented x3 Neuro motor strength exam: Left Upper Extremity: 4, Right Upper Extremity: 4, Left Lower Extremity: 4, Right Lower Extremity: 4 Additional comments: Neurological unchanged from previous examination. Assessment and Plan (1) Alcohol withdrawal seizure Assessment & Plan: Case discussed with Dr. Michel, continue all current medical, physical therapies. Recommend to decrease depakote from 750 mg PO Q 12 to 500 mg PO q 12.Recommend MRI of the brain with and without contrast to evaluate any new cerebral aneurym. If MRI is normal, may discharge patient to a subacute rehab. If EEG is normal, to discontinue depakote. Status: Acute
[2017-12-18] MEDS: Enoxaparin 40 mg Syringe SC SCH (08:43)
[2017-12-18] MEDS: Metoprolol Succinate 25 mg XL Tab PO SCH (12:37)
[2017-12-18 15:58] VITALS: O2SAT 96
[2017-12-18 22:50] VITALS: BP 125/80; PULSE 90; TEMP 98.3
== END 2017-12-18 23:00 | DRG 101 ==
LOC: H.ER 10:24 → H.ERHOLD 13:00 → H.ICU/CCU 20:56 → H.MEDSURG1 12-16 14:10
PROVIDERS: ADMIT Family Medicine; ATTEND Family Medicine
DX: G40.509 Epileptic seizures related to external causes, not intractable, without status epilepticus (principal); F10.231 Alcohol dependence with withdrawal delirium; E51.2 Wernicke's encephalopathy; G45.9 Transient cerebral ischemic attack, unspecified; G40.209 Localization-related (focal) (partial) symptomatic epilepsy and epileptic syndromes with complex partial seizures, not intractable, without status epilepticus; E78.00 Pure hypercholesterolemia, unspecified; F41.9 Anxiety disorder, unspecified; I10 Essential (primary) hypertension; Z87.891 Personal history of nicotine dependence; F32.9 Major depressive disorder, single episode, unspecified; Z85.3 Personal history of malignant neoplasm of breast; Z98.2 Presence of cerebrospinal fluid drainage device; Z88.5 Allergy status to narcotic agent; Y90.0 Blood alcohol level of less than 20 mg/100 ml

== ENCOUNTER 2018-03-07 18:05 | Inpatient (IN) | payer MEDICARE, OTHER ==
[2018-03-07 18:05] VITALS: BMI 25.0
[2018-03-07] MEDS ORDERED: Valproic Acid 250 mg/5 ml Oral Syrup (60 ml) PO STA (18:38)
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
[2018-03-07 19:10] LABS: BASO # 0.1 K/uL (0.0-0.2); BASO % 0.8 % (0.0-2.0); EOS # 0.1 K/uL (0.0-0.7); EOS % 0.8 % (0.0-4.0); LYMPH # 4.5 K/uL (1.0-4.3); LYMPH % 39.2 % (20.0-40.0); MEAN CELL VOLUME 76.7 fl (81.0-99.0); MEAN CORPUSCULAR HEMOGLOBIN 24.5 pg (27.0-31.0); MEAN PLATELET VOLUME 8.9 fl (7.2-11.7); MONO # 0.8 K/uL (0.0-0.8); MONO % 6.6 % (0.0-10.0); NEUT % 52.6 % (50.0-75.0); NRBC % 0.1 % (0.0-0.0); RBC 5.31 Mil/uL (3.80-5.20); RED CELL DISTRIBUTION WIDTH 14.1 % (11.5-14.5); WHITE BLOOD COUNT 11.4 K/uL (4.8-10.8)
[2018-03-07 19:27] LABS: CALCIUM 10.3 mg/dL (8.4-10.2); GFR AFRICAN-AMERICAN > 60; GFR NON-AFRICAN AMERICAN > 60
[2018-03-07 19:31] LABS: ALB/GLOB RATIO 1.3 (1.0-2.1); ALBUMIN 4.6 g/dL (3.5-5.0); ALT/SGPT 17 U/L (9-52); AST/SGOT 36 U/L (14-36); BLOOD UREA NITROGEN 14 mg/dl (7-17)
--- NOTE | 2018-03-07 19:32 | ED PDOC ---
- Laboratory Results Result Diagrams: 03/07/18 19:03 03/07/18 19:03 - ECG O2 Sat by Pulse Oximetry: 97 Medical Decision Making Medical Decision Making: Time: 19:00 --Patient care endorsed to me by Dr. Whitney pending labs and reevaluation Time: 19:37 CT Head FINDINGS: Brain: Diffuse cerebral volume loss and chronic microvascular white matter changes.. Ventricles: Unremarkable. Bones/joints: Unremarkable. No acute fracture. Soft tissues: Unremarkable. Vasculature: Embolization at the right [place] of [place]. Sinuses: Unremarkable as visualized. Mastoid air cells: Unremarkable as visualized. Tubes, lines and devices: Right frontal ventricular catheter appears in good position, terminating at the foramen of Rao. IMPRESSION: No acute intracranial pathology or traumatic injury. No hydrocephalus. Time: 19:59 --Labs showed no clinically significant abnormalities as per Dr. Whitney's discussion with Dr. Larios patient will be admitted for further workup and treatment. Case was referred to Dr. Cota, the hospitalist stator connector. Scribe Attestation: Documented by Miko Barlow, acting as a scribe for Jb Paulino MD. Provider Scribe Attestation: All medical record entries made by the Scribe were at my direction and personally dictated by me. I have reviewed the chart and agree that the record accurately reflects my personal performance of the history, physical exam, medical decision making, and the department course for this patient. I have also personally directed, reviewed, and agree with the discharge instructions and disposition. Disposition - Clinical Impression Clinical Impression: Alcohol related seizure - POA Present On Arrival: None - Disposition Disposition: Admitted as In-Patient Disposition Time: 19:56 Condition: FAIR
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
[2018-03-07] MEDS ORDERED: Multivitamin (MVI) 10 ML, Thiamine 100 MG, Folic Acid 1 MG in Sodium Chloride 0.9% 1,00... IV ONE (21:29)
[2018-03-07] MEDS ORDERED: Sodium Chloride 0.9% 1,000 ML IV SCH (21:30)
[2018-03-08 06:20] LABS: BASO % 0.4 % (0.0-2.0); EOS # 0.1 K/uL (0.0-0.7); EOS % 0.6 % (0.0-4.0); HEMOGLOBIN 11.9 g/dL (12.0-16.0); LYMPH # 3.5 K/uL (1.0-4.3); LYMPH % 43.2 % (20.0-40.0); MEAN CELL VOLUME 76.4 fl (81.0-99.0); MEAN CORPUSCULAR HGB CONC 32.7 g/dL (33.0-37.0); MEAN PLATELET VOLUME 8.8 fl (7.2-11.7); MONO # 0.4 K/uL (0.0-0.8); MONO % 5.3 % (0.0-10.0); NEUT # 4.1 K/uL (1.8-7.0); NEUT % 50.5 % (50.0-75.0); NRBC % 0.1 % (0.0-0.0); RBC 4.76 Mil/uL (3.80-5.20); RED CELL DISTRIBUTION WIDTH 13.7 % (11.5-14.5)
[2018-03-08 07:02] LABS: BLOOD UREA NITROGEN 10 mg/dl (7-17); CALCIUM 9.3 mg/dL (8.4-10.2); GFR AFRICAN-AMERICAN > 60; GFR NON-AFRICAN AMERICAN > 60
[2018-03-08 07:55] LABS: SQUAMOUS EPITHIAL 1 /hpf (0-5); URINE AMORPHOUS SEDIMENT RARE /ul (<OCC); URINE BACTERIA OCC (<OCC); URINE BILIRUBIN NEGATIVE (NEGATIVE); URINE BLOOD NEGATIVE (NEGATIVE); URINE CLARITY CLOUDY (Clear); URINE COLOR YELLOW (YELLOW); URINE GLUCOSE (UA) NEG (Normal); URINE LEUKOCYTE ESTERASE TRACE Leu/uL (Negative); URINE PROTEIN NEGATIVE (NEGATIVE); URINE UROBILINOGEN 0.2-1.0 mg/dL (0.2-1.0)
--- NOTE | 2018-03-08 08:27 | RAD ---
Date of service: 03/07/2018 HISTORY: Seizure COMPARISON: 12/17/2017. FINDINGS: LUNGS: There is redemonstration of airspace disease in the right lung base. PLEURA: Minimal right pleural effusion, no pneumothorax apparent. CARDIOVASCULAR: Normal. OSSEOUS STRUCTURES: No significant abnormalities. VISUALIZED UPPER ABDOMEN: Normal. OTHER FINDINGS: Surgical clips in the right upper quadrant are related to prior cholecystectomy.. IMPRESSION: No change in right basilar airspace disease and small right pleural effusion.
[2018-03-08 08:28] LABS: BARBITURATES, UR NEGATIVE (NEGATIVE); BENZODIAZEPINES, UR NEGATIVE (NEGATIVE); OPIATES, UR NEGATIVE (NEGATIVE); PHENCYCLIDINE, UR NEGATIVE (NEGATIVE)
--- NOTE | 2018-03-08 08:44 | CT ---
Date of service: 03/07/2018 PROCEDURE: CT HEAD WITHOUT CONTRAST. HISTORY: Seizure COMPARISON: 12/12/2017. TECHNIQUE: Axial computed tomography images were obtained through the head/brain without intravenous contrast. Radiation dose: Total exam DLP = 763.93 mGy-cm. This CT exam was performed using one or more of the following dose reduction techniques: Automated exposure control, adjustment of the mA and/or kV according to patient size, and/or use of iterative reconstruction technique. FINDINGS: HEMORRHAGE: No intracranial hemorrhage. BRAIN: Status post clipping of a right PCOM aneurysm. There is gliosis along the left transfrontal shunt catheter tract with few high attenuation areas along the tract which may represent portions of the shunt catheter/calcification. There is an old lacunar infarction in the left anterior internal capsule. There is no mass, mass effect or abnormal extra-axial fluid collection. There is no territorial infarction. The midline sagittal structures are normal. VENTRICLES: There is a right trans parietal shunt catheter terminating in the region of the foramina of [place]. No hydrocephalus. CALVARIUM: Postsurgical changes of right frontal ventricular peritoneal shunt catheter placement. Left frontal ton hole. PARANASAL SINUSES: Unremarkable as visualized. No significant inflammatory changes. MASTOID AIR CELLS: Unremarkable as visualized. No inflammatory changes. OTHER FINDINGS: None. IMPRESSION: No acute intracranial abnormality. Partially imaged right ventriculoperitoneal shunt catheter stable position terminating in the region of the foramina Rao. Redemonstration of right parasellar coil mass related to presumable right PCOM aneurysm repair. Stable gliosis along remote left transfrontal shunt catheter. A preliminary report was provided by [employer] [facility].
[2018-03-08] MEDS ORDERED: Multivitamin With Minerals Tab PO SCH (09:00)
[2018-03-08] MEDS ORDERED: Enoxaparin 40 mg Syringe SC SCH (09:00)
--- NOTE | 2018-03-08 09:59 | CARD ---
APPROVED REPORT Date of service: 03/07/2018 EKG Measurement Heart [id number] <Conclusion> Normal sinus rhythm Normal ECG
--- NOTE | 2018-03-08 13:21 | CT ---
Date of service: 03/08/2018 PROCEDURE: CT HEAD WITHOUT CONTRAST. HISTORY: Follow up for r/o CVA COMPARISON: March 07, 2018. TECHNIQUE: Axial computed tomography images were obtained through the head/brain without intravenous contrast. Coronal and sagittal reconstructed images. Radiation dose: Total exam DLP = 797.65 mGy-cm. This CT exam was performed using one or more of the following dose reduction techniques: Automated exposure control, adjustment of the mA and/or kV according to patient size, and/or use of iterative reconstruction technique. FINDINGS: HEMORRHAGE: No evidence of acute cortical infarction. Stable findings associated with surgical clips of likely aneurysm this includes encephalomalacia change in the right temporal lobe, unchanged. Stable findings related to internal capsule, anterior limb infarction on the left. BRAIN: No mass effect or edema. No atrophy or chronic microvascular ischemic changes. VENTRICLES: No change with respect to ventriculostomy catheter. No hydrocephalus identified. CALVARIUM: Unremarkable. PARANASAL SINUSES: Unremarkable as visualized. No significant inflammatory changes. MASTOID AIR CELLS: Unremarkable as visualized. No inflammatory changes. OTHER FINDINGS: None. IMPRESSION: No acute intracranial abnormalities. No significant findings to account for the clinical presentation. No significant interval change compared to the prior examination(s). Additional benign and/or incidental findings described above.
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
--- NOTE | 2018-03-08 15:42 | CP.PCM.DIS ---
Provider - Provider Date of Admission: 03/07/18 19:56 Attending physician: Warner Cota Time Spent in preparation of Discharge (in minutes): 45 Hospital Course - Lab Results Lab Results: Most Recent Lab Values WBC 8.0 K/uL (4.8-10.8) 03/08/18 04:20 RBC 4.76 Mil/uL (3.80-5.20) 03/08/18 04:20 Hgb 11.9 g/dL (12.0-16.0) L 03/08/18 04:20 Hct 36.3 % (34.0-47.0) 03/08/18 04:20 MCV 76.4 fl (81.0-99.0) L 03/08/18 04:20 MCH 25.0 pg (27.0-31.0) L 03/08/18 04:20 MCHC 32.7 g/dL (33.0-37.0) L 03/08/18 04:20 RDW 13.7 % (11.5-14.5) 03/08/18 04:20 Plt Count 264 K/uL (130-400) 03/08/18 04:20 MPV 8.8 fl (7.2-11.7) 03/08/18 04:20 Neut % (Auto) 50.5 % (50.0-75.0) 03/08/18 04:20 Lymph % (Auto) 43.2 % (20.0-40.0) H 03/08/18 04:20 [place] % (Auto) 5.3 % (0.0-10.0) 03/08/18 04:20 Eos % (Auto) 0.6 % (0.0-4.0) 03/08/18 04:20 Baso % (Auto) 0.4 % (0.0-2.0) 03/08/18 04:20 Neut # (Auto) 4.1 K/uL (1.8-7.0) 03/08/18 04:20 Lymph # (Auto) 3.5 K/uL (1.0-4.3) 03/08/18 04:20 [place] # (Auto) 0.4 K/uL (0.0-0.8) 03/08/18 04:20 Eos # (Auto) 0.1 K/uL (0.0-0.7) 03/08/18 04:20 Baso # (Auto) 0.0 K/uL (0.0-0.2) 03/08/18 04:20 Sodium 143 mmol/l (132-148) 03/08/18 04:20 Potassium 3.6 MMOL/L (3.6-5.0) 03/08/18 04:20 Chloride 110 mmol/L (98-107) H 03/08/18 04:20 Carbon Dioxide 23 mmol/L (22-30) 03/08/18 04:20 Anion Gap 14 (10-20) 03/08/18 04:20 BUN 10 mg/dl (7-17) 03/08/18 04:20 Creatinine 0.8 mg/dl (0.7-1.2) 03/08/18 04:20 Est GFR ( Amer) > 60 03/08/18 04:20 Est GFR (Non-Af Amer) > 60 03/08/18 04:20 POC Glucose (mg/dL) 75 mg/dL (65-110) 03/07/18 18:21 Random Glucose 85 mg/dL (65-105) 03/08/18 04:20 Calcium 9.3 mg/dL (8.4-10.2) 03/08/18 04:20 Total Bilirubin 0.9 mg/dl (0.2-1.3) 03/07/18 19:03 AST 36 U/L (14-36) D 03/07/18 19:03 ALT 17 U/L (9-52) 03/07/18 19:03 Alkaline Phosphatase 83 U/L (38-126) 03/07/18 19:03 Total Protein 8.2 G/DL (6.3-8.2) 03/07/18 19:03 Albumin 4.6 g/dL (3.5-5.0) 03/07/18 19:03 Globulin 3.6 gm/dL (2.2-3.9) 03/07/18 19:03 Albumin/Globulin Ratio 1.3 (1.0-2.1) 03/07/18 19:03 Urine Color Yellow (YELLOW) 03/08/18 07:47 Urine Clarity Cloudy (Clear) 03/08/18 07:47 Urine pH 6.0 (5.0-8.0) 03/08/18 07:47 Ur Specific [place] 1.012 (1.003-1.030) 03/08/18 07:47 Urine Protein Negative mg/dL (NEGATIVE) 03/08/18 07:47 Urine Glucose (UA) Neg mg/dL (Normal) 03/08/18 07:47 Urine Ketones Negative mg/dL (NEGATIVE) 03/08/18 07:47 Urine Blood Negative (NEGATIVE) 03/08/18 07:47 Urine Nitrate Negative (NEGATIVE) 03/08/18 07:47 Urine Bilirubin Negative (NEGATIVE) 03/08/18 07:47 Urine Urobilinogen 0.2-1.0 mg/dL (0.2-1.0) 03/08/18 07:47 Ur Leukocyte Esterase Trace [place]/uL (Negative) 03/08/18 07:47 Urine RBC (Auto) 1 /hpf (0-3) 03/08/18 07:47 Urine Microscopic WBC 1 /hpf (0-5) 03/08/18 07:47 Ur Squamous Epith Cells 1 /hpf (0-5) 03/08/18 07:47 Amorphous Sediment Rare /ul (<OCC) H 03/08/18 07:47 Urine Bacteria Occ (<OCC) H 03/08/18 07:47 Urine Opiates Screen Negative (NEGATIVE) 03/08/18 07:35 Urine Methadone Screen Negative (NEGATIVE) 03/08/18 07:35 Ur Barbiturates Screen Negative (NEGATIVE) 03/08/18 07:35 Ur Phencyclidine Scrn Negative (NEGATIVE) 03/08/18 07:35 Ur Amphetamines Screen Negative (NEGATIVE) 03/08/18 07:35 U Benzodiazepines Scrn Negative (NEGATIVE) 03/08/18 07:35 U Oth Cocaine Metabols Negative (NEGATIVE) 03/08/18 07:35 U Cannabinoids Screen Negative (NEGATIVE) 03/08/18 07:35 Alcohol, Quantitative < 10 mg/dl (0-10) 03/07/18 19:03 - Hospital Course Hospital Course: 7 years old female with hx of Alcoholism, withdrawal seizures, HTN, Breast Cancer and Subdural/Subaracnoid Hemorrhage, brought her to the ED because of seizure like activity after vomiting.Her son also noted mild left facial droop with bilateral arm weakness. No Loss of consciousness but the patient appeared to be in a near syncope state. She recovered confused with difficulty to speak and to understand. Patient reevaluated this morning and symptoms unexpectedly improved and resolved. Patient was evaluated by Neurology who agreed patient could be followed up as an outpatient, and is stable for discharge home. HD stable no acute distress. Course per problem: #.AMS caused by seizure( patient has hx of Complex partial Epilepsy) and had stopped taking her medication. r/o TIA vs Todds Paralysis - Consult Dr Larios Neurology - Load with Depakote the Depakote 500mg Q12H - Seizure Precaution CT Head, Showed: no acute intracranial Pathology - Neuro checks - Neurology on Consult - CT head to be repeated in AM #. Anxiety/Depression - Remeron #. HTN - Metoprolol/Diovan/Amlodipine #. Hx of Alcoholism - Thiamine/Folic Acid/ Multivitamin #. DVT prophylaxis with Lovenox #. Code Status: Full - Date & Time Date: 03/07/18 Time: 20:43 Discharge Exam - Head Exam Head Exam: ATRAUMATIC, NORMAL INSPECTION, NORMOCEPHALIC - Eye Exam Eye Exam: EOMI, Normal appearance - ENT Exam ENT Exam: Mucous Membranes Moist, Normal Exam - Respiratory Exam Respiratory Exam: Clear to PA & Lateral, NORMAL BREATHING PATTERN - Cardiovascular Exam Cardiovascular Exam: RRR, +S1, +S2 - GI/Abdominal Exam GI & Abdominal Exam: Normal Bowel Sounds, Soft - Neurological Exam Neurological exam: Alert, Oriented x3 - Psychiatric Exam Psychiatric exam: Normal Affect, Normal Mood - Skin Skin Exam: Dry, Warm Discharge Plan - Follow Up Plan Condition: FAIR Disposition: HOME/ ROUTINE Instructions: Seizures, Adult (DC) Additional Instructions: follow up with your PCP in ONE week.
[2018-03-08 15:43] VITALS: BP 111/77; PULSE 96; RESP 20; TEMP 98.5; O2SAT 99
== END 2018-03-08 15:30 | disposition home or self-care (01) | DRG 101 ==
LOC: H.ER 18:05 → H.ERHOLD 19:56 → H.TEL 21:10
PROVIDERS: ADMIT Internal Medicine; ATTEND Internal Medicine
DX: G40.209 Localization-related (focal) (partial) symptomatic epilepsy and epileptic syndromes with complex partial seizures, not intractable, without status epilepticus (principal); I10 Essential (primary) hypertension; Z85.3 Personal history of malignant neoplasm of breast; Z86.79 Personal history of other diseases of the circulatory system; Z87.891 Personal history of nicotine dependence; Z90.49 Acquired absence of other specified parts of digestive tract; Z98.2 Presence of cerebrospinal fluid drainage device; F10.20 Alcohol dependence, uncomplicated; K82.9 Disease of gallbladder, unspecified; Z79.899 Other long term (current) drug therapy; R41.82 Altered mental status, unspecified; E78.00 Pure hypercholesterolemia, unspecified; E78.5 Hyperlipidemia, unspecified; F32.9 Major depressive disorder, single episode, unspecified; F41.9 Anxiety disorder, unspecified; Z91.14 Patient's other noncompliance with medication regimen

== ENCOUNTER 2018-05-21 10:30 | Emergency (ER) | payer MEDICARE ==
[2018-05-21 10:30] VITALS: BMI 25.0
[2018-05-21 10:34] VITALS: BP 127/81; PULSE 70; RESP 18; TEMP 98.6; O2SAT 99
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
[2018-05-21 11:25] LABS: BASO % 0.5 % (0.0-2.0); EOS # 0.1 K/uL (0.0-0.7); EOS % 0.9 % (0.0-4.0); HEMOGLOBIN 12.3 g/dL (12.0-16.0); LYMPH # 2.3 K/uL (1.0-4.3); LYMPH % 34.2 % (20.0-40.0); MEAN CORPUSCULAR HEMOGLOBIN 24.1 pg (27.0-31.0); MEAN CORPUSCULAR HGB CONC 32.1 g/dL (33.0-37.0); MEAN PLATELET VOLUME 9.6 fl (7.2-11.7); MONO # 0.3 K/uL (0.0-0.8); MONO % 4.5 % (0.0-10.0); NEUT % 59.9 % (50.0-75.0); NRBC % 0.2 % (0.0-0.0); RBC 5.12 Mil/uL (3.80-5.20); RED CELL DISTRIBUTION WIDTH 15.5 % (11.5-14.5); WHITE BLOOD COUNT 6.7 K/uL (4.8-10.8)
[2018-05-21 11:31] LABS: ALB/GLOB RATIO 1.2 (1.0-2.1); ALBUMIN 3.9 g/dL (3.5-5.0); ALT/SGPT 35 U/L (9-52); AST/SGOT 31 U/L (14-36); BLOOD UREA NITROGEN 11 mg/dl (7-17); CALCIUM 10.3 mg/dL (8.4-10.2); GFR NON-AFRICAN AMERICAN > 60
[2018-05-21] MEDS ORDERED: Potassium Chloride 20 mEq ER Tab PO ONE ×2 (11:48→11:53)
== END 2018-05-21 12:13 | disposition home or self-care (01) ==
LOC: H.ER 10:30
DX: R25.2 Cramp and spasm (principal); E78.00 Pure hypercholesterolemia, unspecified; I10 Essential (primary) hypertension; Z85.3 Personal history of malignant neoplasm of breast

== ENCOUNTER 2018-05-22 15:53 | Emergency (ER) | payer MEDICARE ==
[2018-05-22 15:53] VITALS: BMI 25.0
[2018-05-22 16:01] VITALS: PULSE 75
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
[2018-05-22 16:28] LABS: ALB/GLOB RATIO 1.2 (1.0-2.1); ALBUMIN 4.1 g/dL (3.5-5.0); ALT/SGPT 28 U/L (9-52); AST/SGOT 34 U/L (14-36); BLOOD UREA NITROGEN 12 mg/dl (7-17); CALCIUM 10.2 mg/dL (8.4-10.2); GFR NON-AFRICAN AMERICAN > 60
--- NOTE | 2018-05-22 17:07 | US ---
Date of service: 05/22/2018 PROCEDURE: Bilateral lower extremity venous duplex Doppler. HISTORY: Bilat thigh pain COMPARISON: None available. TECHNIQUE: Bilateral common femoral, superficial femoral, popliteal and posterior tibial veins were evaluated. Flow was assessed with color Doppler, compressibility, assessment of phasic flow and augmentation response. FINDINGS: COMMON FEMORAL VEIN: Right CFV: Unremarkable. Left CFV: Unremarkable. SUPERFICIAL FEMORAL VEIN: Right SFV: Unremarkable. Left SFV: Unremarkable. POPLITEAL VEIN: Right Popliteal: Unremarkable. Left Popliteal: Unremarkable. POSTERIOR TIBIAL VEIN: Right PTV: Unremarkable. Left PTV: Unremarkable. OTHER FINDINGS: None. IMPRESSION: No evidence of deep venous thrombosis.
[2018-05-22 17:46] VITALS: BP 120/76; RESP 19; TEMP 97.6; O2SAT 98
== END 2018-05-22 17:47 | disposition home or self-care (01) ==
LOC: H.ER 15:53
DX: M79.605 Pain in left leg (principal); M79.604 Pain in right leg; Z86.59 Personal history of other mental and behavioral disorders; I10 Essential (primary) hypertension; Z85.3 Personal history of malignant neoplasm of breast

== ENCOUNTER 2018-06-29 08:10 | Emergency (ER) | payer MEDICARE ==
[2018-06-29 08:11] VITALS: BMI 25.0
[2018-06-29 08:14] VITALS: BP 114/75; PULSE 81; RESP 17; TEMP 99.4; O2SAT 98
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
== END 2018-06-29 12:42 | disposition home or self-care (01) ==
LOC: H.ER 08:10
DX: M79.606 Pain in leg, unspecified (principal); G89.29 Other chronic pain
CPT/HCPCS: 96372; 99284; J1885

== ENCOUNTER 2018-07-03 12:13 | Observation (INO) | payer MEDICARE ==
[2018-07-03 12:13] VITALS: BMI 25.0
[2018-07-03 14:14] LABS: BASO % 0.8 % (0.0-2.0); EOS # 0.2 K/uL (0.0-0.7); EOS % 6.1 % (0.0-4.0); HEMOGLOBIN 11.3 g/dL (12.0-16.0); LYMPH % 26.5 % (20.0-40.0); MEAN CELL VOLUME 75.2 fl (81.0-99.0); MEAN CORPUSCULAR HEMOGLOBIN 23.8 pg (27.0-31.0); MEAN CORPUSCULAR HGB CONC 31.6 g/dL (33.0-37.0); MEAN PLATELET VOLUME 8.9 fl (7.2-11.7); MONO # 0.5 K/uL (0.0-0.8); MONO % 12.4 % (0.0-10.0); NEUT # 2.1 K/uL (1.8-7.0); NEUT % 54.2 % (50.0-75.0); NRBC % 0.1 % (0.0-0.0); RBC 4.76 Mil/uL (3.80-5.20); RED CELL DISTRIBUTION WIDTH 16.3 % (11.5-14.5); WHITE BLOOD COUNT 3.9 K/uL (4.8-10.8)
--- NOTE | 2018-07-03 14:23 | CT ---
Date of service: 07/03/2018 PROCEDURE: CT HEAD WITHOUT CONTRAST. HISTORY: AMS COMPARISON: 03/08/2018 CT scan head TECHNIQUE: Axial computed tomography images were obtained through the head/brain without intravenous contrast. Radiation dose: Total exam DLP = 896.06 mGy-cm. This CT exam was performed using one or more of the following dose reduction techniques: Automated exposure control, adjustment of the mA and/or kV according to patient size, and/or use of iterative reconstruction technique. FINDINGS: HEMORRHAGE: No intracranial hemorrhage. BRAIN: There is evidence of previously identified right aneurysm clip and right frontal shunt catheter. Shunt catheter tip is unchanged in position from prior study. There is encephalomalacia in a linear fashion noted in the left frontal lobe with some high density probably representing old shunt catheter tract with ton hole noted in this region. Mild areas of encephalomalacia are seen in the left internal capsule and left caudate. There is no interval change in the appearance of the cerebral hemispheres or cerebellum from the prior study. No new cortical effacement is seen. There is stable mild encephalomalacia also noted in the right temporal lobe seen on prior study. VENTRICLES: No hydrocephalus. No interval change from prior study. CALVARIUM: Stable PARANASAL SINUSES: Unremarkable as visualized. No significant inflammatory changes. MASTOID AIR CELLS: Unremarkable as visualized. No inflammatory changes. OTHER FINDINGS: None. IMPRESSION: Stable appearance of the brain and shunt catheter from the prior study. Other findings as above. No evidence of recent infarct or intracranial hemorrhage.
[2018-07-03 14:30] LABS: SQUAMOUS EPITHIAL 18 /hpf (0-5); URINE BILIRUBIN NEGATIVE (NEGATIVE); URINE BLOOD NEGATIVE (NEGATIVE); URINE CLARITY CLOUDY (Clear); URINE COLOR AMBER (YELLOW); URINE GLUCOSE (UA) NEG (Normal); URINE LEUKOCYTE ESTERASE NEG Leu/uL (Negative); URINE PROTEIN NEGATIVE (NEGATIVE)
[2018-07-03 14:31] LABS: URINE AMORPHOUS SEDIMENT FEW /ul (<OCC); URINE BACTERIA FEW (<OCC)
[2018-07-03 14:33] LABS: ALB/GLOB RATIO 1.2 (1.0-2.1); ALBUMIN 3.8 g/dL (3.5-5.0); ALT/SGPT 57 U/L (9-52); AST/SGOT 47 U/L (14-36); BLOOD UREA NITROGEN 6 mg/dl (7-17); CALCIUM 9.5 mg/dL (8.4-10.2); GFR NON-AFRICAN AMERICAN > 60
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
[2018-07-03 14:44] LABS: BARBITURATES, UR NEGATIVE (NEGATIVE)
[2018-07-03 14:48] LABS: BENZODIAZEPINES, UR POSITIVE (NEGATIVE); OPIATES, UR NEGATIVE (NEGATIVE); PHENCYCLIDINE, UR NEGATIVE (NEGATIVE)
--- NOTE | 2018-07-03 15:07 | US ---
Date of service: 07/03/2018 PROCEDURE: Right lower extremity venous duplex Doppler. HISTORY: R leg pain COMPARISON: None available. TECHNIQUE: Common femoral, superficial femoral, popliteal and posterior tibial veins were evaluated. Flow was assessed with color Doppler, compressibility, assessment of phasic flow and augmentation response. FINDINGS: COMMON FEMORAL VEIN: Unremarkable. SUPERFICIAL FEMORAL VEIN: Unremarkable. POPLITEAL VEIN: Unremarkable. POSTERIOR TIBIAL VEIN: Unremarkable. OTHER FINDINGS: None. IMPRESSION: No evidence of deep venous thrombosis in the right lower extremity.
--- NOTE | 2018-07-03 17:05 | RAD ---
PROCEDURE: Right Hip Radiographs. HISTORY: Right hip pain COMPARISON: None. FINDINGS: BONES: Frontal view of the pelvis and frontal and frogleg views of the right hip were performed. No fracture is seen. No lytic process is noted. No femoral head flattening is seen. No significant degenerative changes of the superior acetabular region are noted. Pubic rami and symphysis and left hip are intact. No sacroiliac joint widening is noted. There is evidence of prior lower lumbar spine surgery with orthopedic device in place. JOINTS: See above. SOFT TISSUES: Normal. OTHER FINDINGS: None. IMPRESSION: No evidence of fracture. No femoral head flattening to suggest AVN.
--- NOTE | 2018-07-03 17:06 | RAD ---
Date of service: 07/03/2018 PROCEDURE: Right Knee Radiographs. HISTORY: pain COMPARISON: None. FINDINGS: BONES: Three views of the right knee were performed. No fracture is seen. Patella is in normal location. No significant degenerative changes are noted. No osteochondral defect is noted. No joint effusion is seen. Erosion or periosteal reaction is seen.. JOINTS: Tiny amount of lateral compartment chondrocalcinosis is not excluded. No loose body is seen. No significant joint space narrowing is noted. JOINT EFFUSION: None OTHER FINDINGS: None. IMPRESSION: No evidence of fracture or joint effusion.
--- NOTE | 2018-07-03 17:09 | RAD ---
Date of service: 07/03/2018 HISTORY: clearance COMPARISON: X-ray 03/07/2018, CT scan 05/22/2016, x-ray 12/12/2017 FINDINGS: LUNGS: There is mild hazy density at the right costophrenic angle a portion of which may represent small right effusion. Chronic right effusion is seen on multiple prior studies and CT scan from 2016.. PLEURA: Small right effusion. No pneumothorax. CARDIOVASCULAR: Minor aortic atherosclerotic calcification present. Normal cardiac size. No pulmonary vascular congestion. OSSEOUS STRUCTURES: No significant abnormalities. VISUALIZED UPPER ABDOMEN: Normal. OTHER FINDINGS: There is a stable right ventricular peritoneal shunt catheter overlying the right thorax and extending towards the right upper quadrant, unchanged. IMPRESSION: Small right effusion seen on multiple prior studies.
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
[2018-07-03] MEDS ORDERED: Potassium Chloride 20 mEq ER Tab PO ONE ×3 (17:44→18:38)
[2018-07-04 00:52] VITALS: RESP 18
[2018-07-04 07:12] LABS: BASO % 0.9 % (0.0-2.0); EOS # 0.2 K/uL (0.0-0.7); EOS % 7.2 % (0.0-4.0); HEMOGLOBIN 11.2 g/dL (12.0-16.0); LYMPH # 0.8 K/uL (1.0-4.3); MEAN CELL VOLUME 74.2 fl (81.0-99.0); MEAN CORPUSCULAR HEMOGLOBIN 23.7 pg (27.0-31.0); MEAN PLATELET VOLUME 8.6 fl (7.2-11.7); MONO # 0.4 K/uL (0.0-0.8); MONO % 12.9 % (0.0-10.0); NEUT # 1.6 K/uL (1.8-7.0); NRBC % 0.1 % (0.0-0.0); RBC 4.7 Mil/uL (3.80-5.20); RED CELL DISTRIBUTION WIDTH 16.2 % (11.5-14.5); WHITE BLOOD COUNT 3.1 K/uL (4.8-10.8)
[2018-07-04 07:39] LABS: BLOOD UREA NITROGEN 5 mg/dl (7-17); CALCIUM 9.3 mg/dL (8.4-10.2); GFR NON-AFRICAN AMERICAN > 60
[2018-07-04] MEDS ORDERED: Magnesium Sulfate 2 gm/50 ml 2 GM/50 ML BAG IVPB ONE (08:20)
--- NOTE | 2018-07-04 08:41 | CARD ---
APPROVED REPORT Date of service: 07/03/2018 EKG Measurement Heart [id number] <Conclusion> Normal sinus rhythm Normal ECG
[2018-07-04 08:48] VITALS: BP 112/76; TEMP 98.6
[2018-07-04] MEDS ORDERED: Pantoprazole 40 mg EC Tab PO SCH (09:00)
[2018-07-04] MEDS ORDERED: Metoprolol Succinate 25 mg XL Tab PO SCH (09:00)
[2018-07-04 09:11] VITALS: O2SAT 96
[2018-07-04 10:08] VITALS: PULSE 62
--- NOTE | 2018-07-04 12:00 | CP.PCM.DIS ---
<Khadar Cochran - Last Filed: 07/04/18 12:02> Provider - Provider Date of Admission: 07/03/18 16:38 Attending physician: Humberto Pereira MD Time Spent in preparation of Discharge (in minutes): 30 Diagnosis - Discharge Diagnosis (1) Phenytoin toxicity Status: Acute Hospital Course - Lab Results Lab Results: Most Recent Lab Values WBC 3.1 K/uL (4.8-10.8) L 07/04/18 05:30 RBC 4.70 Mil/uL (3.80-5.20) 07/04/18 05:30 Hgb 11.2 g/dL (12.0-16.0) L 07/04/18 05:30 Hct 34.9 % (34.0-47.0) 07/04/18 05:30 MCV 74.2 fl (81.0-99.0) L 07/04/18 05:30 MCH 23.7 pg (27.0-31.0) L 07/04/18 05:30 MCHC 32.0 g/dL (33.0-37.0) L 07/04/18 05:30 RDW 16.2 % (11.5-14.5) H 07/04/18 05:30 Plt Count 187 K/uL (130-400) 07/04/18 05:30 MPV 8.6 fl (7.2-11.7) 07/04/18 05:30 Neut % (Auto) 53.0 % (50.0-75.0) 07/04/18 05:30 Lymph % (Auto) 26.0 % (20.0-40.0) 07/04/18 05:30 [place] % (Auto) 12.9 % (0.0-10.0) H 07/04/18 05:30 Eos % (Auto) 7.2 % (0.0-4.0) H 07/04/18 05:30 Baso % (Auto) 0.9 % (0.0-2.0) 07/04/18 05:30 Neut # (Auto) 1.6 K/uL (1.8-7.0) L 07/04/18 05:30 Lymph # (Auto) 0.8 K/uL (1.0-4.3) L 07/04/18 05:30 [place] # (Auto) 0.4 K/uL (0.0-0.8) 07/04/18 05:30 Eos # (Auto) 0.2 K/uL (0.0-0.7) 07/04/18 05:30 Baso # (Auto) 0.0 K/uL (0.0-0.2) 07/04/18 05:30 Sodium 141 mmol/l (132-148) 07/04/18 05:30 Potassium 3.9 MMOL/L (3.6-5.0) 07/04/18 05:30 Chloride 113 mmol/L (98-107) H 07/04/18 05:30 Carbon Dioxide 23 mmol/L (22-30) 07/04/18 05:30 Anion Gap 9 (10-20) L 07/04/18 05:30 BUN 5 mg/dl (7-17) L 07/04/18 05:30 Creatinine 0.6 mg/dl (0.7-1.2) L 07/04/18 05:30 Est GFR ( Amer) > 60 07/04/18 05:30 Est GFR (Non-Af Amer) > 60 07/04/18 05:30 Random Glucose 92 mg/dL (65-105) 07/04/18 05:30 Calcium 9.3 mg/dL (8.4-10.2) 07/04/18 05:30 Magnesium 1.5 MG/DL (1.6-2.3) L 07/03/18 16:15 Total Bilirubin 0.3 mg/dl (0.2-1.3) 07/03/18 13:34 AST 47 U/L (14-36) H D 07/03/18 13:34 ALT 57 U/L (9-52) H D 07/03/18 13:34 Alkaline Phosphatase 162 U/L (38-126) H D 07/03/18 13:34 Total Creatine Kinase 48 U/L (30-135) 07/03/18 16:15 Total Protein 7.0 G/DL (6.3-8.2) 07/03/18 13:34 Albumin 3.8 g/dL (3.5-5.0) 07/03/18 13:34 Globulin 3.2 gm/dL (2.2-3.9) 07/03/18 13:34 Albumin/Globulin Ratio 1.2 (1.0-2.1) 07/03/18 13:34 TSH 3rd Generation 2.21 mIU/ML (0.46-4.68) 07/04/18 10:00 Urine Color Jeannie (YELLOW) 07/03/18 13:34 Urine Clarity Cloudy (Clear) 07/03/18 13:34 Urine pH 5.0 (5.0-8.0) 07/03/18 13:34 Ur Specific [place] 1.019 (1.003-1.030) 07/03/18 13:34 Urine Protein Negative mg/dL (NEGATIVE) 07/03/18 13:34 Urine Glucose (UA) Neg mg/dL (Normal) 07/03/18 13:34 Urine Ketones Trace mg/dL (NEGATIVE) 07/03/18 13:34 Urine Blood Negative (NEGATIVE) 07/03/18 13:34 Urine Nitrate Negative (NEGATIVE) 07/03/18 13:34 Urine Bilirubin Negative (NEGATIVE) 07/03/18 13:34 Urine Urobilinogen 2.0 mg/dL (0.2-1.0) H 07/03/18 13:34 Ur Leukocyte Esterase Neg Isha/uL (Negative) 07/03/18 13:34 Urine RBC (Auto) 2 /hpf (0-3) 07/03/18 13:34 Urine Microscopic WBC 3 /hpf (0-5) 07/03/18 13:34 Ur Squamous Epith Cells 18 /hpf (0-5) H 07/03/18 13:34 Amorphous Sediment Few /ul (<OCC) H 07/03/18 13:34 Urine Bacteria Few (<OCC) H 07/03/18 13:34 Hyaline Casts 6-10 /hpf (0-2) H 07/03/18 13:34 Urine Opiates Screen Negative (NEGATIVE) 07/03/18 13:34 Urine Methadone Screen Negative (NEGATIVE) 07/03/18 13:34 Ur Barbiturates Screen Negative (NEGATIVE) 07/03/18 13:34 Phenytoin 21.3 ug/ML (10-20) H 07/03/18 13:34 Ur Phencyclidine Scrn Negative (NEGATIVE) 07/03/18 13:34 Ur Amphetamines Screen Negative (NEGATIVE) 07/03/18 13:34 U Benzodiazepines Scrn Positive (NEGATIVE) 07/03/18 13:34 U Oth Cocaine Metabols Negative (NEGATIVE) 07/03/18 13:34 U Cannabinoids Screen Negative (NEGATIVE) 07/03/18 13:34 Alcohol, Quantitative < 10 mg/dl (0-10) 07/03/18 13:34 - Hospital Course Hospital Course: 57 yo F with pmhx of R ICA/MCA aneurysm s/p clip 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 at time of admission, the pt reported seeing roaches in the bathroom floor. Per son, he did not see them and she had similar hallucinations approximately 5 months ago before she started experiencing seizures. She was currently undergoing a Keppra taper via her Neurolgist. On admisison, Phenytoin level was found to be 21.3. Neuro, Dr. Larios was consulted. Keppra was stopped and phenytoin was tapered. No event of seizure activity or hallucinations during hospital stay. After an uneventful hospital course, the pt was discharged in stable condition. Discharge Exam - Head Exam Head Exam: NORMOCEPHALIC - Eye Exam Eye Exam: EOMI, PERRL - ENT Exam ENT Exam: Mucous Membranes Moist - Respiratory Exam Respiratory Exam: Clear to PA & Lateral, NORMAL BREATHING PATTERN, UNREMARKABLE. absent: Rales, Rhonchi, Wheezes - Cardiovascular Exam Cardiovascular Exam: REGULAR RHYTHM, RRR, +S1, +S2. absent: JVD, Rubs - GI/Abdominal Exam GI & Abdominal Exam: Normal Bowel Sounds, Soft, Unremarkable. absent: Tenderness - Neurological Exam Neurological exam: Alert, CN II-XII Intact, Oriented x3, Reflexes Normal - Psychiatric Exam Psychiatric exam: Normal Affect, Normal Mood - Skin Skin Exam: Dry, Intact Discharge Plan - Discharge Medications Prescriptions: RX: Phenytoin, Extended [Dilantin] 100 mg PO HS #10 cer RX: Phenytoin, Extended [Dilantin] 200 mg PO QAM #20 cer - Follow Up Plan Condition: STABLE Disposition: HOME/ ROUTINE Additional Instructions: follow up with your PMD in 1 week follow up with your neurologist in 2-3 days take medications as prescribed if any symptoms return, come back to ED for further evaluation and treatment Referrals: Elliott Bansal MD [Family Provider] - <Humberto Pereira - Last Filed: 07/04/18 14:14> Provider - Provider Date of Admission: 07/03/18 16:38 Attending physician: Humberto Pereira MD Hospital Course - Lab Results Lab Results: Most Recent Lab Values WBC 3.1 K/uL (4.8-10.8) L 07/04/18 05:30 RBC 4.70 Mil/uL (3.80-5.20) 07/04/18 05:30 Hgb 11.2 g/dL (12.0-16.0) L 07/04/18 05:30 Hct 34.9 % (34.0-47.0) 07/04/18 05:30 MCV 74.2 fl (81.0-99.0) L 07/04/18 05:30 MCH 23.7 pg (27.0-31.0) L 07/04/18 05:30 MCHC 32.0 g/dL (33.0-37.0) L 07/04/18 05:30 RDW 16.2 % (11.5-14.5) H 07/04/18 05:30 Plt Count 187 K/uL (130-400) 07/04/18 05:30 MPV 8.6 fl (7.2-11.7) 07/04/18 05:30 Neut % (Auto) 53.0 % (50.0-75.0) 07/04/18 05:30 Lymph % (Auto) 26.0 % (20.0-40.0) 07/04/18 05:30 Gilchrist % (Auto) 12.9 % (0.0-10.0) H 07/04/18 05:30 Eos % (Auto) 7.2 % (0.0-4.0) H 07/04/18 05:30 Baso % (Auto) 0.9 % (0.0-2.0) 07/04/18 05:30 Neut # (Auto) 1.6 K/uL (1.8-7.0) L 07/04/18 05:30 Lymph # (Auto) 0.8 K/uL (1.0-4.3) L 07/04/18 05:30 [place]christ # (Auto) 0.4 K/uL (0.0-0.8) 07/04/18 05:30 Eos # (Auto) 0.2 K/uL (0.0-0.7) 07/04/18 05:30 Baso # (Auto) 0.0 K/uL (0.0-0.2) 07/04/18 05:30 Sodium 141 mmol/l (132-148) 07/04/18 05:30 Potassium 3.9 MMOL/L (3.6-5.0) 07/04/18 05:30 Chloride 113 mmol/L (98-107) H 07/04/18 05:30 Carbon Dioxide 23 mmol/L (22-30) 07/04/18 05:30 Anion Gap 9 (10-20) L 07/04/18 05:30 BUN 5 mg/dl (7-17) L 07/04/18 05:30 Creatinine 0.6 mg/dl (0.7-1.2) L 07/04/18 05:30 Est GFR ( Amer) > 60 07/04/18 05:30 Est GFR (Non-Af Amer) > 60 07/04/18 05:30 Random Glucose 92 mg/dL (65-105) 07/04/18 05:30 Calcium 9.3 mg/dL (8.4-10.2) 07/04/18 05:30 Magnesium 1.5 MG/DL (1.6-2.3) L 07/03/18 16:15 Total Bilirubin 0.3 mg/dl (0.2-1.3) 07/03/18 13:34 AST 47 U/L (14-36) H D 07/03/18 13:34 ALT 57 U/L (9-52) H D 07/03/18 13:34 Alkaline Phosphatase 162 U/L (38-126) H D 07/03/18 13:34 Total Creatine Kinase 48 U/L (30-135) 07/03/18 16:15 Total Protein 7.0 G/DL (6.3-8.2) 07/03/18 13:34 Albumin 3.8 g/dL (3.5-5.0) 07/03/18 13:34 Globulin 3.2 gm/dL (2.2-3.9) 07/03/18 13:34 Albumin/Globulin Ratio 1.2 (1.0-2.1) 07/03/18 13:34 TSH 3rd Generation 2.21 mIU/ML (0.46-4.68) 07/04/18 10:00 Urine Color Jeannie (YELLOW) 07/03/18 13:34 Urine Clarity Cloudy (Clear) 07/03/18 13:34 Urine pH 5.0 (5.0-8.0) 07/03/18 13:34 Ur Specific [place] 1.019 (1.003-1.030) 07/03/18 13:34 Urine Protein Negative mg/dL (NEGATIVE) 07/03/18 13:34 Urine Glucose (UA) Neg mg/dL (Normal) 07/03/18 13:34 Urine Ketones Trace mg/dL (NEGATIVE) 07/03/18 13:34 Urine Blood Negative (NEGATIVE) 07/03/18 13:34 Urine Nitrate Negative (NEGATIVE) 07/03/18 13:34 Urine Bilirubin Negative (NEGATIVE) 07/03/18 13:34 Urine Urobilinogen 2.0 mg/dL (0.2-1.0) H 07/03/18 13:34 Ur Leukocyte Esterase Neg Isha/uL (Negative) 07/03/18 13:34 Urine RBC (Auto) 2 /hpf (0-3) 07/03/18 13:34 Urine Microscopic WBC 3 /hpf (0-5) 07/03/18 13:34 Ur Squamous Epith Cells 18 /hpf (0-5) H 07/03/18 13:34 Amorphous Sediment Few /ul (<OCC) H 07/03/18 13:34 Urine Bacteria Few (<OCC) H 07/03/18 13:34 Hyaline Casts 6-10 /hpf (0-2) H 07/03/18 13:34 Urine Opiates Screen Negative (NEGATIVE) 07/03/18 13:34 Urine Methadone Screen Negative (NEGATIVE) 07/03/18 13:34 Ur Barbiturates Screen Negative (NEGATIVE) 07/03/18 13:34 Phenytoin 21.3 ug/ML (10-20) H 07/03/18 13:34 Ur Phencyclidine Scrn Negative (NEGATIVE) 07/03/18 13:34 Ur Amphetamines Screen Negative (NEGATIVE) 07/03/18 13:34 U Benzodiazepines Scrn Positive (NEGATIVE) 07/03/18 13:34 U Oth Cocaine Metabols Negative (NEGATIVE) 07/03/18 13:34 U Cannabinoids Screen Negative (NEGATIVE) 07/03/18 13:34 Alcohol, Quantitative < 10 mg/dl (0-10) 07/03/18 13:34 Attending/Attestation - Attestation I have personally seen and examined this patient.: Yes I have fully participated in the care of the patient.: Yes I have reviewed all pertinent clinical information, including history, physical exam and plan: Yes Notes (Text): 07/04/18 14:11 Patient seen and examined with resident. Patient did not have any sign of seizure activity and was stable for discharge. She was discharged in stable condition and would follow up with her neurologist in [facility] within a week.
== END 2018-07-04 13:30 | disposition home or self-care (01) ==
LOC: H.ER 12:13 → INTOOBSV 16:38 → H.ERHOLD 16:38 → H.TEL 23:36
DX: G40.909 Epilepsy, unspecified, not intractable, without status epilepticus (principal); T42.0X5A Adverse effect of hydantoin derivatives, initial encounter; I10 Essential (primary) hypertension; Y92.9 Unspecified place or not applicable; Z85.3 Personal history of malignant neoplasm of breast; Z90.49 Acquired absence of other specified parts of digestive tract; K82.9 Disease of gallbladder, unspecified; M79.604 Pain in right leg; R44.3 Hallucinations, unspecified; E78.00 Pure hypercholesterolemia, unspecified; F10.239 Alcohol dependence with withdrawal, unspecified; F17.210 Nicotine dependence, cigarettes, uncomplicated; F32.9 Major depressive disorder, single episode, unspecified; F41.9 Anxiety disorder, unspecified; Z86.79 Personal history of other diseases of the circulatory system
CPT/HCPCS: 36415; 70450; 71045; 73501; 73562; 80048; 80053; 80177; 80185; 80186; 80320; 80324; 80345; 80346; 80349; 80353; 80358; 80361; 81003; 82550; 83735; 83992; 84443; 85025; 93005; 93971; 96365; 99285; G0378

== ENCOUNTER 2018-07-10 19:10 | Emergency (ER) | payer MEDICARE ==
[2018-07-10 19:10] VITALS: BMI 25.0
[2018-07-10 19:25] VITALS: TEMP 98.3
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
[2018-07-10] MEDS ORDERED: Sodium Chloride 0.9% 1,000 ML IV STA (19:42)
[2018-07-10] MEDS ORDERED: DiphenhydrAMINE 50 mg/ml Inj IV STA (19:43)
[2018-07-10] MEDS ORDERED: DiphenhydrAMINE 50 mg/ml Inj ONE (20:00)
[2018-07-10 20:01] LABS: BASO % 0.7 % (0.0-2.0); EOS # 0.5 K/uL (0.0-0.7); HEMOGLOBIN 11.2 g/dL (12.0-16.0); LYMPH # 1.1 K/uL (1.0-4.3); MEAN CELL VOLUME 74.7 fl (81.0-99.0); MEAN CORPUSCULAR HGB CONC 32.2 g/dL (33.0-37.0); MEAN PLATELET VOLUME 7.9 fl (7.2-11.7); MONO # 0.5 K/uL (0.0-0.8); NEUT # 3.4 K/uL (1.8-7.0); NEUT % 61.3 % (50.0-75.0); RBC 4.64 Mil/uL (3.80-5.20); RED CELL DISTRIBUTION WIDTH 16.3 % (11.5-14.5); WHITE BLOOD COUNT 5.5 K/uL (4.8-10.8)
[2018-07-10 20:12] LABS: ALB/GLOB RATIO 1.1 (1.0-2.1); ALBUMIN 3.6 g/dL (3.5-5.0); ALT/SGPT 63 U/L (9-52); AST/SGOT 60 U/L (14-36); BLOOD UREA NITROGEN 8 mg/dl (7-17); CALCIUM 9.5 mg/dL (8.4-10.2); GFR NON-AFRICAN AMERICAN > 60
[2018-07-10 20:14] VITALS: RESP 21
[2018-07-10 20:52] VITALS: BP 130/88; PULSE 77; O2SAT 97
--- NOTE | 2018-07-10 21:04 | ED PDOC ---
- Laboratory Results Result Diagrams: 07/10/18 19:57 07/10/18 19:57 - ECG O2 Sat by Pulse Oximetry: 97 Medical Decision Making Medical Decision Making: Pt endorsed to me by GRACIE Cam at 8pm pending reassessment after IV medications given for allergic reactions. 9pm: pt re-evaluated, tongue edema has resolved and rash appears to have improved. Pt states that she is feeling much better. Disposition Counseled Patient/Family Regarding: Studies Performed, Diagnosis - Clinical Impression Clinical Impression: Allergic reaction - POA Present On Arrival: None - Disposition Referrals: Elliott Bansal MD [Family Provider] - Disposition: Routine/Home Disposition Time: 21:08 Condition: STABLE Additional Instructions: Return to ER if your symptoms of tongue swelling, shortness of breath, nausea or vomiting return or develop. Use Benadryl as needed for rash/mild allergy symptoms. Be aware that allergen could still be in your system so as the medications that we gave you wear off, you could potentially develop similar allergy symptoms. Avoid taking Meloxicam any longer. Contact your PMD on Thursday to discuss other pain medications. Prescriptions: DiphenhydrAMINE [Benadryl] 25 mg PO Q6 PRN 3 Days cap PRN Reason: Allergy Symptoms Epinephrine [Epipen] 0.3 mg IJ ONCE #1 auto.injct Famotidine [Pepcid] 20 mg PO BID 4 Days tab RX: Prednisone [Deltasone] 60 mg PO DAILY 4 Days tablet Instructions: Drug Allergy Forms: [employer] (Tunisian) Print Language: ICELANDIC
== END 2018-07-10 21:51 | disposition home or self-care (01) ==
LOC: H.ER 19:10
DX: T78.40XA Allergy, unspecified, initial encounter (principal)
CPT/HCPCS: 80053; 85025; 96361; 96374; 96375; 99283; J1200; J2930; J7030

== ENCOUNTER 2018-11-19 17:57 | Inpatient (IN) | payer MEDICARE ==
--- NOTE | 2018-11-19 18:29 | CT ---
Date of service: 11/19/2018 PROCEDURE: CT HEAD WITHOUT CONTRAST. HISTORY: Possible seizure. COMPARISON: 07/03/2018. CT head TECHNIQUE: Axial computed tomography images were obtained through the head/brain without intravenous contrast. Supplemental Coronal and Sagittal projections created and reviewed. Radiation dose: Total exam DLP = 995.38 mGy-cm. This CT exam was performed using one or more of the following dose reduction techniques: Automated exposure control, adjustment of the mA and/or kV according to patient size, and/or use of iterative reconstruction technique. FINDINGS: HEMORRHAGE: No intracranial hemorrhage. BRAIN: Stable encephalomalacia change primarily affecting right temporal lobe. No atrophy or chronic microvascular ischemic changes. Postoperative findings likely reflective of clipping intracranial aneurysm. VENTRICLES: Stable configuration of ventricles. Stable position of ventriculoperitoneal shunt catheter. CALVARIUM: Stable post craniotomy changes. PARANASAL SINUSES: Unremarkable as visualized. No significant inflammatory changes. MASTOID AIR CELLS: Unremarkable as visualized. No inflammatory changes. OTHER FINDINGS: None. IMPRESSION: No acute or significant findings related to/ accounting for the clinical presentation. Additional benign and/or incidental findings described above. No significant interval change compared to the prior examination(s). Code stroke protocol: Study completed 18:15. Radiologist notified 18:20. Results conveyed verbally at 18:24. Interpretation finalized and available for review 18:26.
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
[2018-11-19] MEDS: Sodium Chloride 0.9% 1,000 ML IV SCH (18:59)
[2018-11-19 19:07] LABS: BLOOD UREA NITROGEN 9 mg/dl (7-17); CALCIUM 10.4 mg/dL (8.4-10.2); GFR NON-AFRICAN AMERICAN > 60; HDL CHOLESTEROL 27 MG/DL (30-70)
[2018-11-19 19:11] LABS: ALB/GLOB RATIO 1.1 (1.0-2.1); ALBUMIN 4.3 g/dL (3.5-5.0); ALT/SGPT 24 U/L (9-52); AST/SGOT 52 U/L (14-36)
[2018-11-19 19:15] LABS: INR 1.1
[2018-11-19 19:18] LABS: LDL CHOLESTEROL 131 mg/dL (0-129); PARTIAL THROMBOPLASTIN TIME 40.2 Seconds (25.6-37.1)
[2018-11-19 21:09] LABS: BARBITURATES, UR NEGATIVE (NEGATIVE); BENZODIAZEPINES, UR NEGATIVE (NEGATIVE); OPIATES, UR NEGATIVE (NEGATIVE); PHENCYCLIDINE, UR NEGATIVE (NEGATIVE)
[2018-11-19 21:22] LABS: BASO % 0.4 % (0.0-2.0); EOS # 0.1 K/uL (0.0-0.7); EOS % 1.3 % (0.0-4.0); HEMOGLOBIN 11.4 g/dL (12.0-16.0); LYMPH # 2.4 K/uL (1.0-4.3); LYMPH % 27.1 % (20.0-40.0); MEAN CELL VOLUME 74.4 fl (81.0-99.0); MEAN CORPUSCULAR HEMOGLOBIN 24.5 pg (27.0-31.0); MEAN PLATELET VOLUME 8.2 fl (7.2-11.7); MONO # 0.7 K/uL (0.0-0.8); MONO % 7.7 % (0.0-10.0); NEUT # 5.6 K/uL (1.8-7.0); NEUT % 63.5 % (50.0-75.0); NRBC % 0.1 % (0.0-0.0); RBC 4.66 Mil/uL (3.80-5.20); RED CELL DISTRIBUTION WIDTH 15.5 % (11.5-14.5); WHITE BLOOD COUNT 8.8 K/uL (4.8-10.8)
[2018-11-19] MEDS ORDERED: levETIRAcetam 500 MG in Sodium Chloride 0.9% 100 ML IVPB ONE (22:00)
--- NOTE | 2018-11-20 11:43 | CT ---
Date of service: 11/20/2018 PROCEDURE: CT HEAD WITHOUT CONTRAST. HISTORY: Status post fall COMPARISON: Comparison made with prior CT scan brain 11/19/2018. TECHNIQUE: Axial computed tomography images were obtained through the head/brain without intravenous contrast. Radiation dose: Total exam DLP = 783.34 mGy-cm. This CT exam was performed using one or more of the following dose reduction techniques: Automated exposure control, adjustment of the mA and/or kV according to patient size, and/or use of iterative reconstruction technique. FINDINGS: HEMORRHAGE: No acute parenchymal, subarachnoid or extra-axial hemorrhage. BRAIN: Redemonstrated are multiple rounded collection of metallic embolization coils located in the right parasellar region associated with encephalomalacia adjacent right inferior temporal lobe and ex vacuo dilatation of the right temporal horn. There are also encephalomalaciac changes seen along the posterior inferior margin of the right subinsular region. No change in situ right-sided ASSEMBLYMAN OR WOMAN shunt to which enters a right frontoparietal ton hole courses through the right frontal lobe and terminates in the posterior inferomedial aspect of the right frontal horn near the right foramen of Monro. Low-attenuation changes are seen in the frontal lobe surrounding the ASSEMBLYMAN OR WOMAN shunt tube. Additionally, there is a left-sided frontoparietal ton hole with localized encephalomalacic changes left frontal lobe along a track of a since removed ASSEMBLYMAN OR WOMAN shunt tube. VENTRICLES: Ventricles remain mildly prominent in spite of ASSEMBLYMAN OR WOMAN shunt tube. All the ventricles do not appear to be under tension. CALVARIUM: As above. PARANASAL SINUSES: Unremarkable as visualized. No significant inflammatory changes. MASTOID AIR CELLS: Unremarkable as visualized. No inflammatory changes. OTHER FINDINGS: None. IMPRESSION: No acute parenchymal, subarachnoid or extra-axial hemorrhage. BRAIN: No acute intracranial hemorrhage. Redemonstrated are multiple rounded collection of metallic embolization coils located in the right parasellar region associated with encephalomalacia adjacent right inferior temporal lobe and ex vacuo dilatation of the right temporal horn. There are also encephalomalaciac changes seen along the posterior inferior margin of the right subinsular region. No change in situ right-sided ASSEMBLYMAN OR WOMAN shunt to which enters a right frontoparietal ton hole courses through the right frontal lobe and terminates in the posterior inferomedial aspect of the right frontal horn near the right foramen of Monro. Low-attenuation changes are seen in the frontal lobe surrounding the ASSEMBLYMAN OR WOMAN shunt tube. Additionally, there is a left-sided frontoparietal ton hole with localized encephalomalacic changes left frontal lobe along a track of a since removed ASSEMBLYMAN OR WOMAN shunt tube. Prominent ventricles which do not appear to be under tension.
--- NOTE | 2018-11-20 14:04 | RAD ---
Date of service: 11/19/2018 HISTORY: Code Stroke COMPARISON: Comparison made with chest radiograph dated 07/03/2018. TECHNIQUE: 1 view obtained. FINDINGS: LUNGS: Poor inspiration with low lung volumes, crowded bronchovascular markings and mild bibasilar atelectasis. PLEURA: No significant pleural effusion identified, no pneumothorax apparent. CARDIOVASCULAR: No aortic atherosclerotic calcification present. Normal cardiac size. No pulmonary vascular congestion. OSSEOUS STRUCTURES: No significant abnormalities. VISUALIZED UPPER ABDOMEN: Areolar metallic clips right upper quadrant of the abdomen consistent with prior cholecystectomy. OTHER FINDINGS: In situ MECHANICAL TEST TECHNICIAN shunt tube is present. IMPRESSION: Poor inspiration with low lung volumes, crowded bronchovascular markings and mild bibasilar atelectasis.
[2018-11-20] MEDS: Sodium Chloride 0.9% 1,000 ML IV SCH (15:00)
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
[2018-11-20] MEDS: Acyclovir 500 MG in Sodium Chloride 0.9% 100 ML IVPB SCH (17:12)
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
[2018-11-20 18:29] VITALS: BMI 21.3
[2018-11-20] MEDS ORDERED: Acyclovir 500 MG in Sodium Chloride 0.9% 100 ML IVPB SCH (21:56)
[2018-11-21] MEDS: Sodium Chloride 0.9% 1,000 ML IV SCH ×3 (00:04→21:44)
[2018-11-21] MEDS: Acyclovir 500 MG in Sodium Chloride 0.9% 100 ML IVPB SCH ×3 (00:08→17:15)
--- NOTE | 2018-11-21 06:55 | CP.PCM.PCO ---
Additional Comments - Additional Comments Additional Comments: 58 y/o woman admitted for seizure and zoster had a fall at approximately 9:00 AM on 11/20/2018. Patient was trying to get out of bed to go to the bathroom but fell. Patient said she struck the left side of her head on the bed railing. The patient denied palpitation, headache, lightheadedness, dizziness, or chest pain. The fall was reported by RN and the patient was seen and examined. The patient is AAOx3, neurologically intact, CN II-XII intact, strength 5/5. There was no obvious bruises on head or on any part of the body. The patient's vitals were WNL. The patient was sent for CT head w/o contrast. Result of CT head was negative for intracranial hemorrhage. The patient is to remain in tele for continued monitoring and treatment.
[2018-11-21] MEDS: Enoxaparin 40 mg Syringe SC SCH (09:23)
[2018-11-21] MEDS: Metoprolol Succinate 25 mg XL Tab PO SCH (09:25)
[2018-11-22] MEDS: Acyclovir 500 MG in Sodium Chloride 0.9% 100 ML IVPB SCH ×2 (01:14→11:42)
[2018-11-22] MEDS: Sodium Chloride 0.9% 1,000 ML IV SCH (06:17)
--- NOTE | 2018-11-22 08:11 | CP.PCM.PN ---
Subjective - Date & Time of Evaluation Date of Evaluation: 11/21/18 Time of Evaluation: 20:20 - Subjective Subjective: Seen and examined at the bedside. Patient had a fall, and was evaluated by hospitalist who ordered a CT scan of the head with no intracranial bleed. No seizure during the fall. Patient will need PT/OT evaluation. Convert patient to admission for further evaluation tomorrow. Objective - Vital Signs/Intake and Output Vital Signs (last 24 hours): Temp Pulse Resp BP Pulse Ox 97.6 F 63 20 127/76 98 11/22/18 08:06 11/22/18 08:06 11/22/18 08:06 11/22/18 08:06 11/22/18 08:06 - Medications Medications: Current Medications Acetaminophen (Tylenol 325mg Tab) 650 mg PO Q4 PRN PRN Reason: Headache Amlodipine Besylate (Norvasc) 10 mg PO DAILY [facility] Last Admin: 11/21/18 09:24 Dose: Not Given Enoxaparin Sodium (Lovenox) 40 mg SC DAILY [facility]; Protocol Last Admin: 11/21/18 09:23 Dose: 40 mg Gabapentin (Neurontin) 300 mg PO Q12 [facility] Last Admin: 11/21/18 21:47 Dose: 300 mg Sodium Chloride (Sodium Chloride 0.9%) 1,000 mls @ 100 mls/hr IV .Q10H [facility] Last Admin: 11/22/18 06:17 Dose: Not Given Acyclovir 500 mg/ Sodium (Chloride) 100 mls @ 100 mls/hr IVPB Q8 [facility]; Protocol Last Admin: 11/22/18 01:14 Dose: 100 mls/hr Levetiracetam (Keppra) 750 mg PO Q12 [facility] Last Admin: 11/21/18 21:48 Dose: 750 mg Metoprolol Succinate (Toprol Xl) 25 mg PO DAILY [facility] Last Admin: 11/21/18 09:25 Dose: Not Given Valproate Sodium (Depakene Cap) 500 mg PO Q12 [facility] Last Admin: 11/21/18 21:47 Dose: 500 mg - Labs Labs: 11/19/18 21:15 11/19/18 18:30 PT 12.0 Seconds (9.8-13.1) 11/19/18 18:30 INR 1.1 11/19/18 18:30 APTT 40.2 Seconds (25.6-37.1) H 11/19/18 18:30 Assessment and Plan (1) Gait abnormality Status: Acute (2) Seizure disorder Status: Acute (3) Zoster Status: Acute (4) Hypertension Status: Chronic (5) Dyslipidemia Status: Acute - Assessment and Plan (Free Text) Plan: Continue current care. Fall precaution. PT OT evaluation. Change observation to admission
[2018-11-22] MEDS: Enoxaparin 40 mg Syringe SC SCH (09:00)
[2018-11-22] MEDS: Metoprolol Succinate 25 mg XL Tab PO SCH (09:02)
[2018-11-22 15:47] VITALS: BP 118/79; PULSE 64; RESP 18; TEMP 98.7; O2SAT 97
--- NOTE | 2018-11-23 09:55 | CP.PCM.DIS ---
Provider - Provider Date of Admission: 11/22/18 06:40 Attending physician: Lucian Allred MD Consults: 11/19/18 22:03 Neurology Consult Stat Comment: Consulting Provider: Maxx Michel Consulting Physician: Maxx Michel Reason for Consult: seizure, zoster Time Spent in preparation of Discharge (in minutes): 25 Diagnosis - Discharge Diagnosis (1) Gait abnormality Status: Acute Priority: High (2) Seizure disorder Status: Acute Priority: High (3) Zoster Status: Acute Priority: High (4) Hypertension Status: Chronic Priority: Low (5) Dyslipidemia Status: Acute Hospital Course - Lab Results Lab Results: Most Recent Lab Values WBC 8.8 K/uL (4.8-10.8) D 11/19/18 21:15 RBC 4.66 Mil/uL (3.80-5.20) 11/19/18 21:15 Hgb 11.4 g/dL (12.0-16.0) L 11/19/18 21:15 Hct 34.7 % (34.0-47.0) 11/19/18 21:15 MCV 74.4 fl (81.0-99.0) L 11/19/18 21:15 MCH 24.5 pg (27.0-31.0) L 11/19/18 21:15 MCHC 33.0 g/dL (33.0-37.0) 11/19/18 21:15 RDW 15.5 % (11.5-14.5) H 11/19/18 21:15 Plt Count 385 K/uL (130-400) D 11/19/18 21:15 MPV 8.2 fl (7.2-11.7) 11/19/18 21:15 Neut % (Auto) 63.5 % (50.0-75.0) 11/19/18 21:15 Lymph % (Auto) 27.1 % (20.0-40.0) 11/19/18 21:15 Isabella % (Auto) 7.7 % (0.0-10.0) 11/19/18 21:15 Eos % (Auto) 1.3 % (0.0-4.0) 11/19/18 21:15 Baso % (Auto) 0.4 % (0.0-2.0) 11/19/18 21:15 Neut # (Auto) 5.6 K/uL (1.8-7.0) 11/19/18 21:15 Lymph # (Auto) 2.4 K/uL (1.0-4.3) 11/19/18 21:15 Isabella # (Auto) 0.7 K/uL (0.0-0.8) 11/19/18 21:15 Eos # (Auto) 0.1 K/uL (0.0-0.7) 11/19/18 21:15 Baso # (Auto) 0.0 K/uL (0.0-0.2) 11/19/18 21:15 PT 12.0 Seconds (9.8-13.1) 11/19/18 18:30 INR 1.1 11/19/18 18:30 APTT 40.2 Seconds (25.6-37.1) H 11/19/18 18:30 Sodium 141 mmol/l (132-148) 11/19/18 18:30 Potassium 4.2 MMOL/L (3.6-5.0) 11/19/18 18:30 Chloride 105 mmol/L (98-107) 11/19/18 18:30 Carbon Dioxide 27 mmol/L (22-30) 11/19/18 18:30 Anion Gap 13 (10-20) 11/19/18 18:30 BUN 9 mg/dl (7-17) 11/19/18 18:30 Creatinine 0.7 mg/dl (0.7-1.2) 11/19/18 18:30 Est GFR ( Amer) > 60 11/19/18 18:30 Est GFR (Non-Af Amer) > 60 11/19/18 18:30 POC Glucose (mg/dL) 118 mg/dL (65-110) H 11/20/18 10:40 Random Glucose 94 mg/dL (65-105) 11/19/18 18:30 Hemoglobin A1c 5.8 % (4.2-6.5) 11/19/18 18:30 Calcium 10.4 mg/dL (8.4-10.2) H 11/19/18 18:30 Total Bilirubin 0.6 mg/dl (0.2-1.3) 11/19/18 18:30 AST 52 U/L (14-36) H 11/19/18 18:30 ALT 24 U/L (9-52) 11/19/18 18:30 Alkaline Phosphatase 81 U/L (38-126) 11/19/18 18:30 Troponin I < 0.0120 ng/mL (0.00-0.120) 11/19/18 18:30 Total Protein 8.1 G/DL (6.3-8.2) 11/19/18 18:30 Albumin 4.3 g/dL (3.5-5.0) 11/19/18 18:30 Globulin 3.8 gm/dL (2.2-3.9) 11/19/18 18:30 Albumin/Globulin Ratio 1.1 (1.0-2.1) 11/19/18 18:30 Triglycerides 227 mg/DL (0-149) H 11/19/18 18:30 Cholesterol 232 mg/dL (0-199) H 11/19/18 18:30 LDL Cholesterol Direct 131 mg/dL (0-129) H 11/19/18 18:30 HDL Cholesterol 27 MG/DL (30-70) L 11/19/18 18:30 Urine Opiates Screen Negative (NEGATIVE) 11/19/18 20:43 Urine Methadone Screen Negative (NEGATIVE) 11/19/18 20:43 Ur Barbiturates Screen Negative (NEGATIVE) 11/19/18 20:43 Carbamazepine < 3.0 ug/mL (4.0-12.0) L 11/19/18 18:59 Ur Phencyclidine Scrn Negative (NEGATIVE) 11/19/18 20:43 Ur Amphetamines Screen Negative (NEGATIVE) 11/19/18 20:43 U Benzodiazepines Scrn Negative (NEGATIVE) 11/19/18 20:43 U Oth Cocaine Metabols Negative (NEGATIVE) 11/19/18 20:43 U Cannabinoids Screen Negative (NEGATIVE) 11/19/18 20:43 Alcohol, Quantitative < 10 mg/dl (0-10) 11/19/18 18:30 Blood Type O POSITIVE 11/19/18 18:30 Antibody Screen Negative 11/19/18 18:30 BBK History Checked Patient has bt 11/19/18 18:30 Discharge Exam - Head Exam Head Exam: ATRAUMATIC, NORMAL INSPECTION, NORMOCEPHALIC Discharge Plan - Discharge Medications Prescriptions: Valproic Acid Cap [Depakene Cap] 500 mg PO Q12 30 Days sgl - Follow Up Plan Condition: FAIR Disposition: HOME/ ROUTINE Instructions: Epilepsy in Adults, Shingles (DC) Additional Instructions: No activity restrictions. MD made referral for home PT/OT Referrals: Lucian Allred MD [Staff Provider] -
[2018-11-24 06:52] LABS: PHENYTOIN,FREE <0.5 mg/L (1.0-2.0)
[2018-11-24 12:50] LABS: 10-HYDROXYCARBAZEPINE <1.0 mcg/mL (8.0-35.0)
== END 2018-11-22 18:55 | disposition home or self-care (01) | DRG 101 ==
LOC: H.ER 17:57 → H.ERHOLD 21:51 → H.TEL 11-20 06:42 → OBSVTOIN 11-22 06:40
PROVIDERS: ADMIT Internal Medicine; ATTEND Internal Medicine
DX: G40.909 Epilepsy, unspecified, not intractable, without status epilepticus (principal); B02.9 Zoster without complications; E78.00 Pure hypercholesterolemia, unspecified; E78.5 Hyperlipidemia, unspecified; Z85.3 Personal history of malignant neoplasm of breast; I10 Essential (primary) hypertension; F41.9 Anxiety disorder, unspecified; F32.9 Major depressive disorder, single episode, unspecified; R26.9 Unspecified abnormalities of gait and mobility; Z88.5 Allergy status to narcotic agent